=== PATIENT | male | born 1960 | race African-American/Black ===

== ENCOUNTER 2016-03-03 10:42 | Inpatient (IN) | payer OTHER ==
[~2016-03-03] VITALS: Ht 177.8 cm; Wt 118.0 kg
--- NOTE | ~2016-03-03 | HC ---
[facility] [place] [address] CONSULTATION Name: JENNY RIOS Room #: 428-P ADM IN M.R.#: [id number] Admission: 03/03/16 Attend Phys: Pattie Patel MD Discharge: Date of : 62 Report #: [id number] THIS REPORT FOR: //name// CC: Pattie Garcia CHIEF COMPLAINT: Left foot infection. BRIEF HISTORY: The patient is a 55-year-old gentleman with a longstanding history of diabetes who has a left foot infection. He underwent transmetatarsal amputation back in May of 2014 for an infection. Subsequent to this he developed a wound which he believes is related to pressure from the shoe he had been wearing along the lateral aspect of the foot. He then was ambulating on this foot with a cane and did eventually get a scooter to offload the foot in September but has had a chronic wound that he has been undergoing treatment for with Dr. Snow since that time. In his estimation, the wound had been stable until the latter part of this week when he developed blistering and increased drainage and foul smelling drainage. He was admitted for definitive treatment. PAST MEDICAL HISTORY: Significant for end-stage renal disease, insulin dependent diabetes, neuropathy both lower extremities, sleep apnea, hypertension, hypercholesterolemia, GERD, coronary artery disease. He has had bypass surgery. Has peripheral vascular disease. MEDICATIONS ON ADMISSION: Include Lipitor, insulin, Renvela, Zoloft, Lasix, Colace, Protonix, Neurontin, Mirapex, Nephro-Harshad, Ativan, Ambien, Lofibra, Coreg, Levemir, Percocet, Zofran, Levaquin, Plavix, Cozaar, Nephrocaps. ALLERGIES: XANAX causes heart racing. PHYSICAL EXAMINATION: Examination of the left foot: He does indeed have foul smelling wound, lateral foot. He has a granulating wound on the plantar surface of the foot with packing in position with no significant drainage. Laterally on the foot he has what appears to be blister with again a foul smelling drainage. No obvious fluctuance, although he does have diffuse swelling, unable to palpate the pedal pulse. He did have an MRI scan done of this left foot which is available for review. It does demonstrate fluid and gas in the soft tissues in the lateral aspect of the foot which tracks down more plantarward and more proximally. No obvious osteomyelitis noted. PERTINENT LABORATORY DATA: His white blood count is elevated at 19.9. He is anemic at 7.8 hemoglobin. His creatinine is 10.7. Sedimentation rate is 118. C-reactive protein 14.8. He does have positive blood cultures for strep species. [address] [address] CONSULTATION Name: GABRIELJENNY Room #: 428-P ADM IN M.R.#: [id number] Admission: 03/03/16 Attend Phys: Pattie Patel MD Discharge: Date of : 62 Report #: [id number] IMPRESSION: Left foot soft tissue infection with underlying diabetes with bacteremia. PLAN: The patient is to undergo dialysis today. We discussed at length our options to treatment. Given that he does not have osteomyelitis, I do not think it is imperative. He had the below-knee amputation although this would be a reasonable alternative due to this longstanding wound. He is not prepared to undergo amputation at this time. For that reason I have recommended we do an aggressive irrigation and debridement and continue wound care with Dr. Snow. He has had an arterial ultrasound ordered and if he has an adequate inflow, we may need to have him seen by vascular surgery as well. We discussed the surgery in detail as well as the benefits, risks and outcomes. <ELECTRONICALLY SIGNED> By: Sean Chowdhury MD 03/07/16 1015 0914 0050 Sean Chowdhury MD /nt
--- NOTE | ~2016-03-03 | S ---
[facility] [place] [address] SURGICAL PATH RPT PROCEDURE Name: ASHISH ALDRIDGE Room #: 428-P ADM IN M.R.#: [id number] Admission: 03/03/16 Date of : 62 Discharge: Report #: [id number] Path Case #: [id number] PATHOLOGY REPORT COLLECTION DATE: 03/07/2016 RECEIVED DATE: 03/07/2016 SUBMITTING PHYS: Dr. Sean Chowdhury OTHER PHYS: Dr. Filipe Patel SPECIMEN(S) RECEIVED: A.Left below knee amputation * * * * * * * * * * * * FINAL DIAGNOSIS: Let, left, below knee amputation: - Ulceration, necrosis along with marked acute inflammation associated with abscess formation extending into deep subcutaneous tissue. - Acute inflammation extending into underlying bone with bone destruction. - Absence of digits, status post prior transmetatarsal amputation. - Anterior and posterior tibial vessels with moderate calcific atherosclerosis. - Skin margin viable and unremarkable. - Bone margin grossly unremarkable. (IUV:all; d/t: 03/09/2016) PATHOLOGIST: Betty Dior M.D. REPORT ELECTRONICALLY SIGNED BY: Betty Dior M.D. DATE/TIME: 03/09/2016 15:34 * * * * * * * * * * * * GROSS PATHOLOGY: The specimen is received fresh in a red biohazard bag and labeled "Ashish Aldridge and left below knee amputation." Received is a left lower extremity specimen amputated through the tibia and fibula with a smooth resection margin. The specimen has previously undergone a transmetatarsal amputation, therefore all 5 digits are absent. In the digits place is a blunt end. The specimen measures 19.5 cm from heel to blunt end (where digits would be), 25.0 cm from heel to soft tissue resection margin, 38.5 cm from heel to tibial bone resection margin, and 40.5 cm from heel to fibular bone resection margin. The skin, soft tissue, and bone resection margins are grossly viable and unremarkable. The skin is dark brown and wrinkled. The foot displays two kessler-brown to bright red and necrotic-appearing ulcers, [address] [address] SURGICAL PATH RPT PROCEDURE Name: ASHISH ALDRIDGE Room #: 428-P ADM IN M.R.#: [id number] Admission: 03/03/16 Date of : 62 Discharge: Report #: [id number] Path Case #: [id number] which grossly extend to and involve the underlying bone. The ulcers are arbitrarily designated as "ulcer 1" and "ulcer 2." Ulcer 1 measures 8.7 x 5.3 cm and is located on the lateral aspect of the foot near the blunt end region. Ulcer 2 measures 3.8 x 3.0 cm and is located on the plantar aspect of the foot. Sectioning of the anterior and posterior tibial vasculature reveals patent and slightly calcified lumens. Emergency Vehicle Driver sections are submitted as follows: A1 longitudinal section of skin and soft tissue margin (inked) A2 ulcer 1 A3 ulcer 2 A4 bone underlying ulcer 1 and 2, following decalcification A5 anterior tibial vasculature, following decalcification A6 posterior tibial vasculature, following decalcification (TTL; 03/08/2016) CLINICAL HISTORY: Left foot infection INITIAL CPT CODE(S): A; 18731, 10404 Professional services performed by [facility] at [facility] [address], [place] [address] Technical services performed by [facility] at [address] [place] [address], [address], [place] [address]. [facility] [address] [place] [address] PHONE: [phone] DIRECTOR: Kirk Edge M.D. * * * END OF REPORT * * *
--- NOTE | ~2016-03-03 | HC ---
[facility] [place] [address] CONSULTATION Name: JENNY RIOS Room #: 428-P ADM IN M.R.#: [id number] Admission: 03/03/16 Attend Phys: Pattie Patel MD Discharge: Date of : 62 Report #: [id number] THIS REPORT FOR: //name// CC: Pattie Garcia REASON FOR CONSULTATION: I was asked to evaluate concerning left diabetic foot infection. HISTORY OF PRESENT ILLNESS: The patient was a 55-year-old with underlying diabetes, end-stage renal disease, peripheral vascular disease and peripheral neuropathy. He has had a previous transmetatarsal amputation, left foot. He has subsequently developed ulceration and soft tissue infection. He noticed 3 days ago onset of fever, chills, nausea, some diarrhea. Wound was draining from his foot. Placed on Levaquin, but has not improved and now presents through the emergency room for further evaluation. He has had hypoglycemic episodes. ALLERGIES: ALPRAZOLAM. MEDICATIONS: As noted on his MAR including Levaquin which was changed to vancomycin and Zosyn today. PAST MEDICAL HISTORY, FAMILY HISTORY, SOCIAL HISTORY: Unchanged from his previous consultation and that of his H and P tonight. REVIEW OF SYSTEMS: No cough or sputum production. He has had intermittent left sided chest discomfort. Had some vomiting today. Loose stools. Dialyzes 3 times a week. PHYSICAL EXAMINATION: VITAL SIGNS: Currently, afebrile. His maximum temperature is 102.4, hemodynamically stable. GENERAL: He was sleeping in his bed. HEENT: Unremarkable. LUNGS: Clear. Left upper extremity AV fistula okay. HEART: Regular. ABDOMEN: Soft and nontender. EXTREMITIES: Left foot laterally was fluctuant with a sinus tract draining into the wound to the plantar aspect of his forefoot laterally. There was foul odor. He had tenderness up into his calf. Pulses were diminished. MRI scan showed soft tissue abscess sinus tract with some reactive changes over the fifth metatarsal. LABORATORY STUDIES: Sedimentation rate 118, hemoglobin 8.9, white count 22.9 with 2% bands. Sodium 134, potassium 3.7, creatinine 8.9. Chest x-ray, no acute infiltrates. [address] [address] CONSULTATION Name: JENNY RIOS Room #: 428-P ADM IN M.R.#: [id number] Admission: 03/03/16 Attend Phys: Pattie Patel MD Discharge: Date of : 62 Report #: [id number] IMPRESSION: A 55-year-old diabetic with gangrene of his left foot with what appears to be soft tissue involvement, no definite involvement, but with the extensive nature, I am concerned he may end up with a below-knee amputation. We will need to check his arterial flow. Await cultures of blood and wound. We will continue broad antibiotic coverage, pending these studies. We will need surgical evaluation as well. <ELECTRONICALLY SIGNED> By: Arnold Granados MD 03/06/16 4815 2111 55 Arnold Granados MD /nt
--- NOTE | ~2016-03-03 | O ---
[facility] [place] [address] OPERATIVE REPORT Name: JENNY RIOS Room #: 428-P ADM IN M.R.#: [id number] Admission: 03/03/16 Attend Phys: Pattie Patel MD Discharge: Date of : 62 Report #: [id number] THIS REPORT FOR: //name// CC: Pattie Garcia MD DATE OF SERVICE: 03/05/2016 PREOPERATIVE DIAGNOSIS: Left foot abscess with history of transmetatarsal amputation. POSTOPERATIVE DIAGNOSIS: Left foot abscess with history of transmetatarsal amputation. NAME OF THE PROCEDURE: Left foot extensive irrigation and debridement of the lateral wound and plantar wound. SURGEON: Sean Chowdhury MD ANESTHESTIC: General. INDICATIONS FOR THE PROCEDURE: See hospital consultation. DESCRIPTION OF PROCEDURE: After adequate general anesthesia had been obtained, the patient's left lower extremity was prepped and draped in usual meticulous sterile fashion. Limb was gravity exsanguinated and tourniquet inflated to 300 torr. The principal acute infection was the distal lateral abscess formation. He had superficial skin necrosis in this area along with an abscess which tracked along the dorsum of the foot. The nonviable skin and necrotic tissue was debrided with a knife. The unhealthy-appearing subcutaneous tissue was likewise debrided with a knife. We did ____ deep cultures. The wound was irrigated copiously with antibiotic irrigation until no further purulent material was noted. The plantar wound was then addressed. This plantar wound was a chronic wound ____ did suggest tracking proximally to the plantar aspect of the heel. The unhealthy portion of the base of this wound was debrided. There was a tendon which was likely one of his toe flexor tendons which was at the base of the wound and the abscess track seemed to track along this tendon. The tendon was pulled distally and then amputated. I extended the incision proximally to allow better access and healthy tissue was debrided sharply. The wound was irrigated copiously with antibiotic irrigation. At this time, gloves were changed and fresh drapes placed under the foot and dilute Betadine soaked. A half-inch [address] [address] OPERATIVE REPORT Name: JENNY RIOS Room #: 428-P ADM IN M.R.#: [id number] Admission: 03/03/16 Attend Phys: Pattie Patel MD Discharge: Date of : 62 Report #: [id number] gauze was then packed into the wound. A sterile compressive dressing was then applied and the tourniquet then deflated. <ELECTRONICALLY SIGNED> By: Sean Chowdhury MD 03/07/16 1015 0953 1112 Sean Chowdhury MD /nt
--- NOTE | ~2016-03-03 | HC ---
[facility] [place] [address] CONSULTATION Name: JENNY RIOS Room #: 428-P [facility] IN M.R.#: [id number] Admission: 03/03/16 Attend Phys: Pattie Patel MD Discharge: Date of : 62 Report #: [id number] THIS REPORT FOR: //name// CC: Pattie Garcia DATE OF SERVICE: 03/03/2016 HISTORY OF PRESENT ILLNESS: This 55-year-old male is a maintenance hemodialysis patient at [facility]. He has had longstanding difficulties with diabetic foot disease. He has undergone previous treatment and transmetatarsal amputation. He presents today with deterioration of his foot status with open wounds and drainage. He describes fever sensations. He dialyzed yesterday at [facility] uneventfully. PAST MEDICAL HISTORY: Remarkable for longstanding diabetes mellitus with multiple complications thereof. He has undergone previous coronary artery bypass surgery as well as multiple peripheral interventions. He has chronic hypertension and poor diabetes management. ALLERGIES: Reported to ALPRAZOLAM. MEDICATIONS: On admission to the hospital include atorvastatin, aspirin, NovoLog sliding scale, Renvela, Zoloft, Lasix, Colace, Protonix, Neurontin, Mirapex, Nephro-Harshad, Ativan, Ambien, Lofibra, carvedilol, Levemir, Percocet, Zofran, Levaquin, Plavix, Cozaar, Nephrocaps. FAMILY HISTORY: Remarkable for diabetes mellitus. PERSONAL AND SOCIAL HISTORY: The patient is . He does not smoke, use alcohol or have any history of substance abuse. REVIEW OF SYSTEMS: Remarkable for fever sensations. He denies nic rigors. He denies shortness of breath, productive cough, hemoptysis, chest pain, palpitations, nausea, vomiting or diarrhea. PHYSICAL EXAMINATION: GENERAL: Reveals a well-developed, chronically ill-appearing male, in no acute distress. VITAL SIGNS: Blood pressure 114/54, temperature 37.1, pulse 85, respirations 16. SKIN: Rather clammy and warm. There is no gross clubbing, cyanosis, edema or adenopathy. There is a dressing in place on the foot, which was not removed as the foot had just been examined by the ER physician. HEENT: The head is normocephalic and atraumatic. The sclerae are white. Conjunctivae are not injected. Pharynx is benign. [address] [address] CONSULTATION Name: JENNY RIOS Room #: 428-P [facility] IN .R.#: [id number] Admission: 03/03/16 Attend Phys: Pattie Patel MD Discharge: Date of : 62 Report #: [id number] NECK: Supple. PULMONARY: Lung pinon are grossly clear to percussion and auscultation. CARDIAC: Reveals a regular rate and rhythm without rub. ABDOMEN: Soft and nontender, without palpable mass or organomegaly. NEUROLOGIC: Reveals this patient to be alert and cooperative with a nonfocal examination. Laboratory studies available at the time of consultation include blood pressure 186/85, temperature 99.6, pulse 106, respirations 20. Laboratory studies available at the time of consultation include sodium 134, potassium 3.7, chloride 92, CO2 28, BUN 41, creatinine 8.9, glucose 293, calcium 9.1. INR 1.3. White blood cell count 22,900, hemoglobin 8.9, hematocrit 27.4, platelet count 329,000. ASSESSMENT: 1. End-stage renal disease, on maintenance hemodialysis. He is due for dialysis as usual schedule tomorrow. There are no indications for undertaking emergent dialysis at this time. 2. Active diabetic foot infection with leukocytosis and fever sensation though his temperature is normal at this time. There is a distant possibility that he could have systemic bacteremia related to this infection. Unfortunately, he has been fighting this infection for quite some time and the wound is deteriorating. We may need to get further consideration to below the knee amputation during the course of this hospitalization and evaluation. 3. Coronary artery disease, status post coronary artery bypass surgery. 4. Diabetes mellitus, poorly controlled. 5. Hypertension. PLAN: We will continue to follow the patient closely with regard to medications and fluid administration. He will receive his regular dialysis treatment tomorrow as per schedule. Please see orders. <ELECTRONICALLY SIGNED> By: Filipe Garcia MD 03/06/16 0703 0807 214 Filipe Garcia MD /nt
--- NOTE | ~2016-03-03 | HC ---
[facility] [place] [address] CONSULTATION Name: JENNY RIOSNE Room #: 428-P [facility] IN M.R.#: [id number] Admission: 03/03/16 Attend Phys: Sean Chowdhury MD Discharge: 03/12/16 Date of : 62 Report #: [id number] THIS REPORT FOR: //name// CC: Sean Garcia DATE OF SERVICE: 03/08/2016 HISTORY OF PRESENT ILLNESS: The patient is a 55-year-old male with history of diabetes mellitus; end-stage renal disease, on hemodialysis; prior left foot infection with strep septicemia. He has now undergone a left below knee amputation on 03/17/2016. We are seeing him in rehabilitation medicine consultation. PAST MEDICAL HISTORY: End-stage renal disease on hemodialysis, insulin-dependent diabetes mellitus, hypertension, elevated cholesterol, neuropathy, obstructive sleep apnea on CPAP, GERD, status post coronary artery bypass grafting x 4 in 2009, history of right fem-pop bypass, peripheral vascular disease with bilateral stenting. MEDICATIONS: Please see the full medication listing. SOCIAL HISTORY: Lives in a house with his , premorbid knee scooter user or cane versus walker. House has a ramp to get in. The patient was driving himself back and forth to dialysis. is noted to be retired. Involved daughter is present. REVIEW OF SYSTEMS: Did not offer any current complaints of chest pain, shortness of breath or abdominal discomfort. He notes that he has had some chronic problems involving his left shoulder dating back 1-2 years. Decreased ability to fully abduct the arm, forward flex the arm. He takes some Aleve, which helps. Notes he does not want any further evaluation at this time and that he is able to utilize the left upper extremity functionally. PHYSICAL EXAMINATION: GENERAL: A 55-year-old -[place] male in no obvious distress. VITAL SIGNS: Last recorded temperature 97, pulse 78, respirations 18, blood pressure 119/72. The patient is alert, pleasant, oriented. HEENT: Appeared to be benign. Cranial nerves are grossly intact. Facies are symmetric. EXTREMITIES: He has functional range of motion of the right upper extremity without focal weakness. Left upper extremity, he can abduct to about 90 degrees, forward flexion to about 100 degrees. Appears to have reasonable strength including with the left arm adducted and testing external rotation. Appears to have reasonable supervisor dry cell assembly of both hands and coordination and normal tone. In his lower extremities, he does have decreased sensation; right lower [facility] [address] [place] [address] CONSULTATION Name: JENNY RIOS Room #: 428-P [facility] IN [facility].#: [id number] Admission: 03/03/16 Attend Phys: Sean Chowdhury MD Discharge: 03/12/16 Date of : 62 Report #: [id number] extremity in a stocking distribution with some decreased proprioception right large toe. Strength of that right lower extremity is a grade 4- to 4/5. Left lower extremity, he has the below knee amputation, which is dressed. Proximally, he is at least a grade 4-. He does have some discomfort with testing as expected. ASSESSMENT: A 55-year-old -[place] male with the following problem list: 1. Left below-knee amputation 03/07/2016. 2. Streptococcal septicemia. 3. Insulin-dependent diabetes mellitus. 4. End-stage renal disease on hemodialysis. 5. Hypertension. 6. Hyperlipidemia. 7. Obstructive sleep apnea. 8. Peripheral neuropathy. 9. Prior history of coronary artery bypass grafting. 10. History of peripheral vascular disease with bilateral stents. PLAN: Therapy evaluations are underway. He certainly may warrant a short acute in-hospital inpatient rehabilitation stay to maximize his functional independence with basic transfers, mobility issues and ADLs prior to returning back to the home setting. He has multiple medical comorbidities with multiple wellness consultant physicians that are following. We will be glad to follow along with you regarding his rehab therapy needs. <ELECTRONICALLY SIGNED> By: José Miguel Jordan MD 03/28/16 1617 1203 1221 José Miguel Jordan MD /nt
--- NOTE | ~2016-03-03 | O ---
[facility] [address] OPERATIVE REPORT Name: JENNY RIOS Room #: 428-P [facility] IN M.R.#: [id number] Admission: 03/03/16 Attend Phys: Sean Chowdhury MD Discharge: 03/12/16 Date of : 62 Report #: [id number] THIS REPORT FOR: //name// CC: Sean Gracia PREOPERATIVE DIAGNOSIS: Left foot severe chronic wound infection. POSTOPERATIVE DIAGNOSIS: Left foot severe chronic wound infection. PROCEDURE: Left below knee amputation. SURGEON: Sean Chowdhury MD. AIR CARGO GROUND OPERATIONS SUPERVISOR: Tacos Al, nurse practitioner. INDICATIONS FOR AIR CARGO GROUND OPERATIONS SUPERVISOR: During the course of operation, extensive manipulation, retraction and limb positioning was required. This was afforded to me by my blood donor unit assistant. ANESTHETIC: General. INDICATIONS: See hospital history consultation. To summarize, I did have a very long discussion with the patient regarding his situation. He has had a chronic nonhealing wound and he has a very aggressive group E strep infection currently. I think it is unlikely that this current wound will go onto heal and him have a functional foot. I recommended below knee amputation with him and after careful consideration, the options and reviewing and benefits, risks and outcomes and he would like to proceed. DESCRIPTION OF PROCEDURE: After adequate general anesthesia had been obtained, the patient's left lower extremity was prepped and draped in the usual meticulous sterile fashion. The tibia was marked approximately 12 cm distal to the joint line. We then made a transverse incision and a long posterior flap incision. The saphenous vein and nerve identified and ligated and the nerve transected. Fascia was divided. The anterior compartment was divided first. The musculature was all divided with cautery and the neurovascular bundle was identified. The neurovascular bundle was stick tied and then suture ligatured and then, the peroneal nerve was retracted distally, transected and allowed to retract proximally. The lateral compartment muscles were then divided as well. The superficial peroneal nerve was identified and likewise retracted distally and allowed to retract proximally. At this time, the tibia was transected and the fibula was transected proximal to the level of the tibial resection. The knee was flexed. The periosteum overlying the posterior tibia and fibula were elevated incorporating all the posterior compartment muscles with a flap. The peroneal vessels were identified, suture ligatured and then tied off with a ligature and then, the tibial nerve and posterior tibial vessels were [address] [address] OPERATIVE REPORT Name: JENNY RIOS Room #: 428-P DIS IN M.R.#: [id number] Admission: 03/03/16 Attend Phys: Sean Chowdhury MD Discharge: 03/12/16 Date of : 62 Report #: [id number] identified. The vessels were stick tied and suture ligatured and the nerve was retracted distally, transected and allowed to retract proximally. A beveled cut was made to the posterior compartment muscles. To allow for appropriate wound closure, I want a debulking the majority of the soleus. The wound was irrigated copiously. I let the tourniquet down and bleeders were cauterized. The fascia posteriorly of the gastroc muscle was pulled anteriorly and tied to the tibial periosteum anteriorly. At this point, the tibia was beveled anteriorly and all sharp bony prominences were smoothed with a rasp. The wound was irrigated copiously once again. The fascia was brought to the anterior aspect of the tibia and tied to the periosteum with #1 Vicryl suture. The fascia was all then meticulously closed with combination of interrupted [id number] #1 Vicryl as well as running #1 Vicryl. The subQ was closed with 3-0 Monocryl and the skin was closed with tico. I did place a drain deep to the fascial closure. A sterile compressive dressing was then applied. <ELECTRONICALLY SIGNED> By: Sean Chowdhury MD 03/21/16 1420 1542 1820 Sean Chowdhury MD /nt
--- NOTE | ~2016-03-03 | EKG ---
[address] [place] [address] ELECTROCARDIOGRAM REPORT Name: ANNA MARIE RIOSVAHID HERNANDEZ Room #: 428-P ADM IN M.R.#: [id number] Admission: 03/03/16 Attend Phys: Pattie Patel MD Discharge: Date of : 62 Report #: [id number] THIS REPORT FOR: //name// [facility] Test Date: 2016-03-03 Test Time: 21:25:05 Pat Name: JENNY RIOS Department: Room: 428 P Gender: M Mc Kay Machine Operator: Kathryn FRANCIS : 1960 Requested By: Arnold Granados Order Number: [id number] MD: Alec Granger Measurements Intervals [place] Rate: 100 P: 63 OK: 175 QRS: 36 QRSD: 91 T: 101 QT: 300 QTc: 387 Interpretive Statements Sinus tachycardia Frequent premature ventricular complexes Nonspecific ST segment abnormality no previous ECGs available for comparison Electronically Signed On 03-07-2016 8:12:52 CLINICAL LABORATORY MANAGER by Alec Granger [email or web address] <ELECTRONICALLY SIGNED> By: Alec Granger MD, [facility] 03/07/16 0812 2125 24 Alec Granger MD, FACC /EPI
[~2016-03-03 10:42] MED LIST: ACETAMINOPHEN650 M5 PO; AMBIEN 5 MG TABL5 M1 PO; AMOXICILLIN 50500 MG PO; APAP500 PO; ASA81BEC PO; ATIVAN0.5 MG PO; ATORVASTATIN CA40 MG PO; AUGMENTIN 500-1 EACH PO; AUGMENTIN 875875 MG PO; AZOR 10-40 MG1 EACH PO; BENICAR20 MG PO; CARVEDILOL25 MG PO; CATAPRES-TTS 10.1 M1 PO; CATAPRES0.2 MG PO; CHLORHEXADINE120 M1 TOP; CLONIDINE HCL0.2 M2 PO; CLONIDINE HCL0.3 M2 PO; CLONIDINE0.1 PO; COLACE100 MG PO; COMBIVENT RESPIM4 GM INH; COREG25 MG PO; COUMADIN 5 MG TA5 M1 PO; COZAAR 25 MG TA25 M2 PO; COZAAR 50 MG TA50 M1 PO; CRESTOR20 MG PO; DEEP SEA NASAL44 M1 NASAL; DEX4 GLUCOSE1 EACH PO; DEXTROSE 5025 GM/SYR; DIALYVITE TABL1 EACH PO; DILTIAZEM 24HR240 M1 PO; DOXYCYCLINE 10100 MG PO; EXFORGE; EXFORGE HCT PO; EXFORGE PO; GABAPENTIN 100100 MG PO; GLUCAGEN1 MG; GLUCOSE GEL38 GM PO; HYDROCODON-ACE1 EAC7 PO; HYDROCODONE-AP1 EAC6 PO; LANTUS SC; LASIX 40 MG TAB40 MG PO; LASIX 80 MG TAB80 MG PO; LEVAQUIN 500 M500 M2 PO; LEVEMIR SUBQ; LIPITOR40 MG PO; LISINOPRIL40 MG PO; LOFIBRA160 MG PO; LOPERAMIDE 2 MG2 M1 PO; MIRAPEX 0.250.25 M1 PO; MIRAPEX0.25 MG PO; NEPHRO-VITE RX1 TA1 PO; NEPHROCAPS SOFT1 CAP PO; NORCO 5-325 TA1 EACH PO; NORVASC10 MG PO; NOVOLIN 70100 UNIT/5 SQ; NOVOLOG MI100 UNIT/2 SUBQ; NOVOLOG100 UNIT/1 SUBQ; PACERONE 200 M200 M1 PO; PERCOCET PO; PIPERACIL-TAZ2.25 G1 IV; PLAVIX 75 MG TA75 M1 PO; PRILOSEC 20 MG20 MG PO; PROTONIX40 M1 PO; RENVELA800 MG PO; ROCEPHIN 1 GM VL1 G1 IV; SENOKOT-S1 TA1 PO; TUMS PO; TYLENOL325 MG PO; VANCO1GM IV; VANCOMYCIN1.25 GM/25 IV; VANCOMYCIN500 MG/VIA IV; ZESTRIL20 MG PO; ZOCOR 20 MG TAB20 M1 PO; ZOCOR20 MG; ZOCOR40 MG PO; ZOFRAN ODT4 MG PO; ZOLOFT50 MG PO; [UNRECOGNIZED DRUG - OTHER] PO
[2016-03-03 10:43] VITALS: BP 186/85
[2016-03-03] MEDS ORDERED: PERCOCET 10-321 EACH PO (11:07)
[2016-03-03] MEDS ORDERED: ONDANSETRON HCL4 M2 PO (11:08)
[2016-03-03] MEDS ORDERED: LEVAQUIN 250 M250 MG PO (11:09)
[2016-03-03 12:05] LABS: HEMATOCRIT 27.4 % (42.0-52.0); HEMOGLOBIN 8.9 gm/dL (14.0-18.0); MCH 27.9 pg (26.0-34.0); MCHC 32.3 % (28.0-37.0); MCV 86.3 fL (80.0-100.0); PLATELET COUNT 329 thou/uL (150-400); RBC 3.18 mil/uL (4.50-6.00); RDW 14.9 % (10.5-14.5); WBC 22.9 thou/uL (4.0-11.0)
[2016-03-03 12:07] LABS: MANUAL DIFF YES
[2016-03-03 12:18] LABS: INR 1.3; PROTIME 13.4 Seconds (9.3-11.4)
[2016-03-03 12:20] LABS: CALCIUM 9.1 mg/dL (8.5-10.1); CREATININE 8.9 mg/dL (0.6-1.3); POTASSIUM 3.7 mmol/L (3.5-5.1)
[2016-03-03 12:32] LABS: ABSOLUTE NEUTROPHILS 19.9 thou/uL (1.4-8.2); TOTAL CELL COUNT 100
[2016-03-03 13:57] VITALS: BP 162/67
[2016-03-03 14:05] VITALS: BP 165/75
[2016-03-03 16:05] VITALS: BP 110/64
[2016-03-03 20:00] VITALS: BP 124/75
[2016-03-03] MEDS ORDERED: REGLAN 10 MG TA10 MG PO (22:50)
[2016-03-04 04:00] VITALS: BP 117/47
[2016-03-04 04:32] LABS: ABSOLUTE NEUTROPHILS 16.5 thou/uL (1.4-8.2); BASOPHILS 1.1 % (0.0-2.0); EOSINOPHILS 1.2 % (0.0-3.0); HEMATOCRIT 24.1 % (42.0-52.0); HEMOGLOBIN 7.8 gm/dL (14.0-18.0); LYMPHOCYTES 4.3 % (24.0-44.0); MANUAL DIFF NO; MCH 28.1 pg (26.0-34.0); MCHC 32.6 % (28.0-37.0); MCV 86.2 fL (80.0-100.0); MONOCYTES 10.3 % (1.0-8.0); PLATELET COUNT 297 thou/uL (150-400); POLYS 83.1 % (36.0-66.0); RBC 2.79 mil/uL (4.50-6.00); RDW 14.7 % (10.5-14.5); WBC 19.9 thou/uL (4.0-11.0)
[2016-03-04 04:50] LABS: ALBUMIN 2.1 g/dL (3.4-5.0); CALCIUM 8.7 mg/dL (8.5-10.1); CREATININE 10.7 mg/dL (0.6-1.3); PHOSPHORUS 5.3 mg/dL (2.5-4.9); POTASSIUM 3.9 mmol/L (3.5-5.1)
[2016-03-04 08:56] VITALS: BP 114/54
[2016-03-04 18:23] VITALS: BP 147/76
[2016-03-04 22:50] VITALS: BP 133/63
[2016-03-05 04:00] VITALS: BP 105/55
[2016-03-05 04:38] LABS: HEMATOCRIT 24.5 % (42.0-52.0); HEMOGLOBIN 7.9 gm/dL (14.0-18.0); MCH 27.6 pg (26.0-34.0); MCHC 32.4 % (28.0-37.0); MCV 85.3 fL (80.0-100.0); PLATELET COUNT 342 thou/uL (150-400); RBC 2.87 mil/uL (4.50-6.00); RDW 15.4 % (10.5-14.5); WBC 19.6 thou/uL (4.0-11.0)
[2016-03-05 05:04] LABS: MANUAL DIFF YES
[2016-03-05 05:23] LABS: ALBUMIN 2.1 g/dL (3.4-5.0); CALCIUM 8.8 mg/dL (8.5-10.1); PHOSPHORUS 3.7 mg/dL (2.5-4.9); POTASSIUM 3.4 mmol/L (3.5-5.1)
[2016-03-05 05:34] LABS: CREATININE 7.7 mg/dL (0.6-1.3)
[2016-03-05 06:36] LABS: ABSOLUTE NEUTROPHILS 15.9 thou/uL (1.4-8.2); PLATELET ESTIMATE NORMAL; TOTAL CELL COUNT 100
[2016-03-05 08:04] VITALS: BP 120/64
[2016-03-05 11:26] VITALS: BP 122/72
[2016-03-05 16:58] VITALS: BP 105/58
[2016-03-05 20:00] VITALS: BP 105/59
[2016-03-06 02:39] LABS: HEMATOCRIT 23.7 % (42.0-52.0); MCH 27.5 pg (26.0-34.0); MCHC 31.3 % (28.0-37.0); MCV 87.8 fL (80.0-100.0); PLATELET COUNT 349 thou/uL (150-400); RBC 2.69 mil/uL (4.50-6.00); RDW 15.2 % (10.5-14.5); WBC 16.9 thou/uL (4.0-11.0)
[2016-03-06 02:44] LABS: HEMOGLOBIN 7.4 gm/dL (14.0-18.0); MANUAL DIFF YES
[2016-03-06 02:48] LABS: CALCIUM 7.9 mg/dL (8.5-10.1); POTASSIUM 4.2 mmol/L (3.5-5.1)
[2016-03-06 03:10] LABS: CREATININE 9.6 mg/dL (0.6-1.3)
[2016-03-06 03:45] LABS: ABSOLUTE NEUTROPHILS 15.2 thou/uL (1.4-8.2); METAMYELOCYTES 1 %; TOTAL CELL COUNT 100
[2016-03-06 03:46] LABS: ANISOCYTOSIS 1+; HYPOCHROMASIA 1+
[2016-03-06 04:00] VITALS: BP 103/47
[2016-03-06 07:52] VITALS: BP 119/65
[2016-03-06 15:28] VITALS: BP 109/59
[2016-03-06 19:35] VITALS: BP 127/68
[2016-03-07] VITALS (10 sets, daily range): BP systolic 120–175; BP diastolic 74–86
[2016-03-07 05:26] LABS: RDW 15.1 % (10.5-14.5)
[2016-03-07 05:30] LABS: MCH 27.9 pg (26.0-34.0); MCHC 32.8 % (28.0-37.0); MCV 85.2 fL (80.0-100.0); PLATELET COUNT 379 thou/uL (150-400); RBC 2.46 mil/uL (4.50-6.00)
[2016-03-07 05:40] LABS: HEMOGLOBIN 6.9 gm/dL (14.0-18.0); MANUAL DIFF YES
[2016-03-07 06:02] LABS: ALBUMIN 1.9 g/dL (3.4-5.0); CALCIUM 7.8 mg/dL (8.5-10.1); PHOSPHORUS 5.9 mg/dL (2.5-4.9); POTASSIUM 4.6 mmol/L (3.5-5.1)
[2016-03-07 06:12] LABS: CREATININE 12.2 mg/dL (0.6-1.3)
[2016-03-07 07:34] LABS: ABSOLUTE NEUTROPHILS 12.6 thou/uL (1.4-8.2); ANISOCYTOSIS 1+; METAMYELOCYTES 4 %; MICROCYTES 2+; MYELOCYTES 1 %; TOTAL CELL COUNT 100; TOXIC GRANULATION 2+
[2016-03-07 07:35] LABS: POLYCHROMASIA SLIGHT; SCHISTOCYTES FEW; TARGET CELLS FEW
[2016-03-07 15:18] LABS: POC BE 0 mmol/L (-2.0 to +3.0); POC CA IONIZED 4.1 mg/dL (4.5-5.3); POC FiO2 1 %; POC GLUCOSE 173 mg/dL (70-99); POC HCO3 26.3 mmol/L (22.0-26.0); POC HEMOGLOBIN 9.2 gm/dL (14.0-18.0); POC POTASSIUM 4.3 mmol/L (3.5-5.1); POC SODIUM 137 mmol/L (136-145); POC pCO2 51.7 mmHg (35.0-45.0); POC pH 7.314 (7.360-7.450)
[2016-03-08 02:28] VITALS: BP 120/62
[2016-03-08 04:30] VITALS: BP 132/73
[2016-03-08 05:26] LABS: HEMATOCRIT 25.3 % (42.0-52.0); HEMOGLOBIN 8.1 gm/dL (14.0-18.0); MCH 27.7 pg (26.0-34.0); MCHC 32.1 % (28.0-37.0); MCV 86.3 fL (80.0-100.0); PLATELET COUNT 428 thou/uL (150-400); RBC 2.93 mil/uL (4.50-6.00); RDW 15.5 % (10.5-14.5)
[2016-03-08 05:36] LABS: MANUAL DIFF YES
[2016-03-08 05:47] LABS: ALBUMIN 2.1 g/dL (3.4-5.0); CALCIUM 7.9 mg/dL (8.5-10.1); PHOSPHORUS 8.5 mg/dL (2.5-4.9); POTASSIUM 5.1 mmol/L (3.5-5.1)
[2016-03-08 06:23] LABS: ABSOLUTE NEUTROPHILS 11.1 thou/uL (1.4-8.2); METAMYELOCYTES 2 %; MYELOCYTES 1 %; TOTAL CELL COUNT 100
[2016-03-08 07:45] VITALS: BP 119/72
[2016-03-08 16:26] VITALS: BP 100/55
[2016-03-08 19:55] VITALS: BP 102/60
[2016-03-09 04:08] VITALS: BP 139/79
[2016-03-09 05:53] LABS: HEMATOCRIT 22.7 % (42.0-52.0); RDW 14.8 % (10.5-14.5); WBC 15.4 thou/uL (4.0-11.0)
[2016-03-09 05:54] LABS: MCHC 32.5 % (28.0-37.0); MCV 86.1 fL (80.0-100.0); RBC 2.64 mil/uL (4.50-6.00)
[2016-03-09 06:01] LABS: POTASSIUM 4.8 mmol/L (3.5-5.1)
[2016-03-09 06:02] LABS: CREATININE 11.2 mg/dL (0.6-1.3)
[2016-03-09 06:04] LABS: HEMOGLOBIN 7.4 gm/dL (14.0-18.0)
[2016-03-09 07:22] LABS: HEMATOCRIT 22.1 % (42.0-52.0)
[2016-03-09 07:28] LABS: HEMOGLOBIN 7.3 gm/dL (14.0-18.0)
[2016-03-09 07:43] VITALS: BP 142/71
[2016-03-09 16:27] VITALS: BP 119/65
[2016-03-10 04:00] VITALS: BP 142/57
[2016-03-10 06:29] LABS: HEMATOCRIT 21.7 % (42.0-52.0); MCH 27.7 pg (26.0-34.0); MCV 86.8 fL (80.0-100.0); RBC 2.5 mil/uL (4.50-6.00); RDW 14.6 % (10.5-14.5); WBC 17.1 thou/uL (4.0-11.0)
[2016-03-10 06:37] LABS: HEMOGLOBIN 6.9 gm/dL (14.0-18.0)
[2016-03-10 07:02] LABS: CALCIUM 7.8 mg/dL (8.5-10.1); PHOSPHORUS 6.2 mg/dL (2.5-4.9)
[2016-03-10 07:04] LABS: CREATININE 7.9 mg/dL (0.6-1.3)
[2016-03-10 07:53] VITALS: BP 132/70
[2016-03-10 10:07] LABS: % SATURATION 12 % (15-55); IRON 24 ug/dL (38-169); TIBC 196 ug/dL (250-450); UIBC 172 ug/dL (111-343)
[2016-03-10 16:11] VITALS: BP 120/75
[2016-03-10 20:00] VITALS: BP 148/70
[2016-03-11 06:11] VITALS: BP 127/92
[2016-03-11 07:49] LABS: HEMATOCRIT 20.8 % (42.0-52.0); MCH 27.2 pg (26.0-34.0); MCHC 31.6 % (28.0-37.0); MCV 86.2 fL (80.0-100.0); RBC 2.41 mil/uL (4.50-6.00); RDW 14.7 % (10.5-14.5); WBC 15.1 thou/uL (4.0-11.0)
[2016-03-11 07:52] LABS: HEMOGLOBIN 6.6 gm/dL (14.0-18.0)
[2016-03-11 07:56] LABS: CALCIUM 8.1 mg/dL (8.5-10.1); POTASSIUM 4.3 mmol/L (3.5-5.1)
[2016-03-11 08:06] LABS: CREATININE 10.7 mg/dL (0.6-1.3)
[2016-03-11 08:50] VITALS: BP 109/84
[2016-03-11 10:06] VITALS: BP 128/76; BP 140/84
[2016-03-11 15:52] VITALS: BP 140/64; BP 163/86; BP 178/105
[2016-03-11 17:04] VITALS: BP 136/85
[2016-03-11 20:00] VITALS: BP 121/59
[2016-03-12 04:00] VITALS: BP 146/59
[2016-03-12 05:45] LABS: HEMATOCRIT 25.1 % (42.0-52.0); HEMOGLOBIN 8.2 gm/dL (14.0-18.0); MCH 28.5 pg (26.0-34.0); MCHC 32.8 % (28.0-37.0); MCV 86.9 fL (80.0-100.0); RBC 2.89 mil/uL (4.50-6.00); RDW 14.7 % (10.5-14.5); WBC 13.5 thou/uL (4.0-11.0)
[2016-03-12 06:03] LABS: ALBUMIN 1.9 g/dL (3.4-5.0); CALCIUM 8.1 mg/dL (8.5-10.1); CREATININE 8.8 mg/dL (0.6-1.3); PHOSPHORUS 5.9 mg/dL (2.5-4.9)
[2016-03-12 08:22] VITALS: BP 125/77
[2016-03-12] MEDS ORDERED: LEVEMIR SUBQ (10:15)
[2016-03-12] MEDS ORDERED: HUMALOG100 UNIT/1 SUBQ (10:15)
[2016-05-05] MEDS ORDERED: PROTONIX40 M1 PO (13:59)
[2016-05-06] MEDS ORDERED: ATIVAN0.5 MG PO (11:11)
[2016-05-06] MEDS ORDERED: ESTRADIOL 1 MG T1 M1 PO (11:11)
[2016-05-06] MEDS ORDERED: PERCOCET 10-321 EACH PO (11:11)
[2016-05-06] MEDS ORDERED: NORVASC10 MG PO (11:11)
== END 2016-03-12 11:50 | DRG 853 ==
LOC: ER 10:42 → EROBS 13:12 → 4E 13:12 → EROBS 13:59 → 4E 13:59
PROVIDERS: Emergency Medicine; Family Medicine; Hospitalist; Internal Medicine Nephrology; Orthopaedic Surgery
PROC: 5A1D60Z (ICD-10-PCS; 2016-03-03)
PROC: 0JDR0ZZ Extraction of Left Foot Subcutaneous Tissue and Fascia, Open Approach (ICD-10-PCS; principal; 2016-03-05)
PROC: 0Y6J0Z1 Detachment at Left Lower Leg, High, Open Approach (ICD-10-PCS; 2016-03-07)
PROC: 30233N1 Transfusion of Nonautologous Red Blood Cells into Peripheral Vein, Percutaneous Approach (ICD-10-PCS; 2016-03-11)
DX: A41.2 Sepsis due to unspecified staphylococcus (principal); N18.6 End stage renal disease; L02.612 Cutaneous abscess of left foot; I13.2 Hypertensive heart and chronic kidney disease with heart failure and with stage 5 chronic kidney disease, or end stage renal disease; E11.52 Type 2 diabetes mellitus with diabetic peripheral angiopathy with gangrene; E11.40 Type 2 diabetes mellitus with diabetic neuropathy, unspecified; K21.9 Gastro-esophageal reflux disease without esophagitis; I25.10 Atherosclerotic heart disease of native coronary artery without angina pectoris; E11.621 Type 2 diabetes mellitus with foot ulcer; G47.33 Obstructive sleep apnea (adult) (pediatric); E78.5 Hyperlipidemia, unspecified; I25.5 Ischemic cardiomyopathy; D63.8 Anemia in other chronic diseases classified elsewhere; E11.22 Type 2 diabetes mellitus with diabetic chronic kidney disease; I50.9 Heart failure, unspecified; E78.00 Pure hypercholesterolemia, unspecified; Z95.5 Presence of coronary angioplasty implant and graft; Z79.82 Long term (current) use of aspirin; Z79.4 Long term (current) use of insulin; Z79.899 Other long term (current) drug therapy; Z95.1 Presence of aortocoronary bypass graft; Z90.49 Acquired absence of other specified parts of digestive tract; Z89.421 Acquired absence of other right toe(s); Z88.8 Allergy status to other drugs, medicaments and biological substances; Z99.2 Dependence on renal dialysis; Z87.891 Personal history of nicotine dependence; Z83.3 Family history of diabetes mellitus; Z82.49 Family history of ischemic heart disease and other diseases of the circulatory system
CPT/HCPCS: 10084; 10183; 10783; 32100; 50010; 50101; 50386; 51412; 53000; 56524; 56525; 56528; 57091; 62110; 62900; 70005

== ENCOUNTER 2016-03-12 11:06 | Inpatient (IN) | payer OTHER ==
[~2016-03-12] VITALS: Ht 177.8 cm; Wt 123.2 kg
--- NOTE | ~2016-03-12 | HC ---
[facility] [place] [address] CONSULTATION Name: JENNY RIOS Room #: 501-A [facility] IN .R.#: [id number] Admission: 03/12/16 Attend Phys: José Miguel Jordan MD Discharge: 03/17/16 Date of : 62 Report #: [id number] THIS REPORT FOR: //name// CC: José Miguel Jordan Filipe Garcia DATE OF SERVICE: 03/17/2016 AGE: 55. ATTENDING PHYSICIAN: José Miguel Jordan M.D. GOLD LAYER: Nando Mills, Ph.D. CLINICAL PRESENTATION: The patient is a 55-year-old male admitted to the rehabilitation unit of [facility] for a comprehensive inpatient rehabilitation program to improve functional mobility and activities of daily living and self-care secondary to impairment from medical complexity and general disability as a result of a left below the knee amputation. His medical history includes end-stage renal disease on hemodialysis, insulin-dependent diabetes mellitus, hypertension, elevated cholesterol, neuropathy, obstructive sleep apnea, GERD, status post coronary artery grafting x 4, history of right fem-pop bypass and peripheral vascular disease with bilateral stenting. A complete description of his medical condition and history can be found in his medical record. Neuropsychological consultation was requested to provide assistance in the assessment of cognitive and emotional status and to provide recommendations and services. Prior to this most recent medical event, he was living with the assistance of his in their home. The patient has 3 children. Two grandchildren are living with them. There has been a great deal of family stress within the last couple of years. They have a daughter. His daughter has been in long-term. Additionally, his health care needs have required increased assistance and supervision to maintain safety. The patient is a high school graduate. 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 TECHNIQUES UTILIZED: Clinical interview, review of medical records, staff consultation and behavioral observation, family interview - . EXAMINATION FINDINGS: The patient was alert and cooperative with the assessment. He was somewhat vague about the specifics of events leading to his hospitalization. However, he maintains an adequate awareness and memory concerning complications that developed in regard to below the knee amputation. He attempted to maintain as much of his leg as possible, but continued difficulty with circulation led to the eventual below the knee recommendation. There is no report of auditory or visual hallucinations. The patient does not [address] [address] CONSULTATION Name: JENNY RIOSNE Room #: 501-A [facility] IN M.R.#: [id number] Admission: 03/12/16 Attend Phys: José Miguel Jordan MD Discharge: 03/17/16 Date of : 62 Report #: [id number] have aphasia. His thoughts are logical and goal oriented. There is no evidence of thought disorder. The patient and his are both frustrated with the need for his discharge as they would like him to remain in the hospital from a more extended time. There is a great deal of family stress associated at the home. The higher level of environmental stress in the home likely contributes to his desire to remain in the hospital rather than return to increasing environmental stress. He describes his symptoms to include anxiety, depression, memory and word finding. His performance on the MMSE 2 brief version was in the mild range of impairment with a raw score of 13 and a T score of 33. He was 3/3 for initial registration, 4/5 for orientation to time and 5/[address]. He was 1/3 for immediate recall of 3 items after a brief time delay and distraction. The patient was correct for serial 7's when multiple choice options. Moderate impairment was suggested by his performance on the MMSE 2 standard version to a raw score 22 of 30. The patient was 1/5 for serial 7's. He presents with a very high level of frustration with auditory processing as well as skills necessary to maintain independent living. He was able to draw a clock and set the hands at a designated time on his second drawing. He initially decreased the planning as suggested. DIAGNOSTIC IMPRESSION: Mild neurocognitive disorder, unspecified, with decreased insight and intermittent irritability. Depressive disorder, unspecified. RECOMMENDATIONS: The patient will benefit from continued use of medication to treat depression. Verbal praise and complements along with him focusing attention on areas of strength rather than limitations and weaknesses will also help his self-confidence. Educational information for the patient and his in regard to behaivoral strategies to improve and his cognitive functioning and mood. He and his may need some assistance with planning and problem solving upon his discharge home. Thank you very much for allowing me to provide the consultation on this patient. <ELECTRONICALLY SIGNED> By: Nando Mills, PhD 03/18/16 1533 1622 2326 Nando Mills, PhD /nt
--- NOTE | ~2016-03-12 | H ---
[facility] [place] [address] HISTORY AND PHYSICAL Name: JENNY RIOS Room #: 501-A [facility] IN .R.#: [id number] Admission: 03/12/16 Attend Phys: José Miguel Jordan MD Discharge: 03/17/16 Date of : 62 Report #: [id number] THIS REPORT FOR: //name// CC: José Miguel Garcia DATE OF SERVICE: 03/13/2016 HISTORY OF PRESENT ILLNESS: The patient is a 55-year-old male with a history of diabetes mellitus; end-stage renal disease, on hemodialysis and prior left foot infection with Strep septicemia. He underwent a left below-knee amputation on 03/17/2016. He was being followed regarding his multiple medical issues. He does have decreased functional mobility and ADLs and has been admitted now for acute in-hospital inpatient rehabilitation. PAST MEDICAL HISTORY: Includes end-stage renal disease, on hemodialysis; insulin-dependent diabetes mellitus; hypertension; elevated cholesterol; neuropathy; obstructive sleep apnea, on CPAP; GERD; status post coronary artery bypass grafting times 4 in 2009; history of right fem-pop bypass and peripheral vascular disease with bilateral stenting. MEDICATIONS: Please see the full medication listing. SOCIAL HISTORY: He lives in a house with his , premorbid knee scooter user or cane versus walker. House has a ramp to get in. The patient was driving himself back and forth to dialysis. is noted to be retired. Involved daughter is present. REVIEW OF SYSTEMS: He did not offer any current complaints of chest pain, shortness of breath or abdominal discomfort. He does have the prior problems with his left shoulder dating back 1-2 years, which was further assessed during my consultation. CODE STATUS. I clarified this as there was some question as to whether he was no code. He did indicate that he does indeed desire to be a full code status. This was thus changed. ALLERGIES: ALPRAZOLAM, causes heart racing. PHYSICAL EXAMINATION: GENERAL: A 55-year-old -Citizen Of [place] male, in obvious distress. He is alert, pleasant and oriented. VITAL SIGNS: Last recorded temperature 97.5, pulse 76, respirations 20 and blood pressure 146/80. HEENT: Appear to be benign. NEUROLOGIC: Cranial nerves grossly intact. Facies [place] [address] HISTORY AND PHYSICAL Name: JENNY RIOS Room #: [address] [place] [address] IN .R.#: [id number] Admission: 03/12/16 Attend Phys: José Miguel Jordan MD Discharge: 03/17/16 Date of : 62 Report #: [id number] overweight. CHEST: Sounded clear to auscultation. CARDIAC EXAMINATION: Regular rate and rhythm. ABDOMEN: Obese. Bowel sounds positive. Nontender. EXTREMITIES: Functional range of motion of the right upper extremity without focal weakness. Left upper extremity abduction to about 90 degrees, forward flexion to about 100. He does have reasonable strength, including with the left arm adductor and testing external rotation. Appears to have reasonable animal hospital clerk of both hands and coordination with normal tone. In his lower extremities, he has decreased sensation. Right lower extremity in a stocking distribution with some decreased proprioception, right large toe. Strength of the right lower extremity is 4- to 4/5. Left lower extremity, he has the below-knee amputation. Proximally, he is at least a grade 4-. I examined the incisional site and he does have tico in place and the incision appears to be healing nicely. Functionally, he has been working on transfers to the knee scooter, which he was utilizing premorbidly. ASSESSMENT: A 55-year-old -Citizen Of [place] male with the following problem list: 1. Left below-knee amputation on 03/07/2016. 2. Streptococcal septicemia. 3. Insulin-dependent diabetes mellitus. 4. End-stage renal disease, on hemodialysis. 5. Hypertension. 6. Hyperlipidemia. 7. Obstructive sleep apnea. 8. Peripheral neuropathy. 9. Prior history of coronary artery bypass grafting. 10. History of peripheral vascular disease with bilateral stents. PLAN: The patient is admitted for acute in-hospital inpatient rehabilitation. From a post-admission physician evaluation perspective, there are no relevant changes since the preadmission screening. Please see of the above review of prior and current medical and functional conditions and comorbidities. Please see the patient's previous and current functional status. As far as risk of complications, he does have multiple medical comorbidities as noted above. Initial plan of care involves the interdisciplinary acute inpatient rehabilitation program with the goal of maximizing his functional independence so he can hopefully return back to his prior living situation. Measurable functional goals would be for him to become modified independent with bed mobility and transfers utilizing the knee scooter. Prognosis is reasonably good and would anticipate a fairly short length of stay. Potential barriers would include his multiple medical comorbidities and decreased functional status. The patient meets diagnostic criteria for an acute in-hospital inpatient rehabilitation stay. He meets medical necessity criteria. He does have [facility] [address] [place] [address] HISTORY AND PHYSICAL Name: JENNY RIOS Room #: 501-A DIS IN M.R.#: [id number] Admission: 03/12/16 Attend Phys: José Miguel Jordan MD Discharge: 03/17/16 Date of : 62 Report #: [id number] appropriate tolerance for therapies and has appropriate discharge goals back to the home setting. <ELECTRONICALLY SIGNED> By: José Miguel Jordan MD 03/28/16 1617 0919 0937 José Miguel Jordan MD /nt
--- NOTE | ~2016-03-12 | PLAN ---
[facility] [place] [address] REHAB UNIT PLAN OF CARE Name: JENNY RIOS Room #: 501-A [facility] IN M.R.#: [id number] Admission: 03/12/16 Attend Phys: José Miguel Jordan MD Discharge: 03/17/16 Date of : 62 Report #: [id number] THIS REPORT FOR: //name// CC: José Miguel Garcia DATE OF SERVICE: 03/14/2016 HISTORY: The patient is seen back today in followup. He is in no distress. Last recorded temperature 97.7, pulse 81, respirations 20 and blood pressure is 124/65. He is in no distress. Blood sugars are being monitored. He did have a low of 39 earlier this morning. Deferring to internal medicine. He continues with dialysis. Transfers are contact guard assistance. He is using the scooter, 75-feet contact guard. Lower body dressing is mod assist, socks and hose min assist. Upper body dressing with supervision. ASSESSMENT: 1. Left below-knee amputation, 03/07/2016. 2. Streptococcal septicemia. 3. Insulin-dependent diabetes mellitus. 4. End-stage renal disease, on hemodialysis. 5. Hypertension. 6. Hyperlipidemia. 7. Obstructive sleep apnea. 8. Peripheral neuropathy. 9. Prior history of coronary artery bypass grafting. 10. History of peripheral vascular disease with bilateral stents. PLAN: The overall plan of care is based on the preadmission screen, post-admission physician evaluation and information garnered from therapy assessments. 1. Estimated length of stay is to be determined further today in the team conference. Would anticipate a fairly short length of stay. 2. Medical prognosis is reasonably good. 3. Anticipated interventions include the interdisciplinary acute inpatient rehabilitation program with PT and OT working with him, rehab nursing assisting regarding medication management, skin care prophylaxis, bowel and bladder issues and nursing education. 4. Anticipated functional outcomes would be for the patient to become modified independent with transfers, mobility, use of the knee scooter and ADLs. 5. Discharge destination will be back to the home setting where he lives with his . They do have a ramp to get in. 6. Expected therapy by discipline includes PT and OT one and one-half hours per [facility] [address] [place] [address] REHAB UNIT PLAN OF CARE Name: JENNY RIOS Room #: 501-A [facility] IN [facility]#: [id number] Admission: 03/12/16 Attend Phys: José Miguel Jordan MD Discharge: 03/17/16 Date of : 62 Report #: [id number] day each, 5 days a week throughout the duration of the acute inpatient rehabilitation stay. <ELECTRONICALLY SIGNED> By: José Miguel Jordan MD 03/28/16 1617 0822 1229 José Miguel Jordan MD /nt
--- NOTE | ~2016-03-12 | D ---
[facility] [address] [place] [address] DISCHARGE SUMMARY Name: GABRIELJENNY MARY Room #: 501-A [facility] IN M.R.#: [id number] Admission: 03/12/16 Attend Phys: José Miguel Jordan MD Discharge: 03/17/16 Date of : 62 Report #: [id number] THIS REPORT FOR: //name// CC: José Miguel Garcia DATE OF SERVICE: 03/17/2016 ADDENDUM The patient missed some therapies during his rehab stay on 03/14/2016 and 03/16/2016 secondary to dialysis. <ELECTRONICALLY SIGNED> By: José Miguel Jordan MD 04/13/16 1342 1006 1042 José Miguel Jordan MD /nt
[~2016-03-12 11:06] MED LIST changes: +HUMALOG100 UNIT/1 SUBQ; +LEVAQUIN 250 M250 MG PO; +ONDANSETRON HCL4 M2 PO; +PERCOCET 10-321 EACH PO; +REGLAN 10 MG TA10 MG PO
[2016-03-12 12:00] VITALS: BP 160/79
[2016-03-12 16:00] VITALS: BP 113/68
[2016-03-13 05:11] VITALS: BP 146/80
[2016-03-13 08:00] VITALS: BP 144/84
[2016-03-14 05:24] VITALS: BP 124/65
[2016-03-14 06:01] LABS: ABSOLUTE NEUTROPHILS 11.7 thou/uL (1.4-8.2); BASOPHILS 0.4 % (0.0-2.0); EOSINOPHILS 3.3 % (0.0-3.0); HEMATOCRIT 24.6 % (42.0-52.0); LYMPHOCYTES 12.7 % (24.0-44.0); MCH 28.4 pg (26.0-34.0); MCHC 32.6 % (28.0-37.0); MCV 87.1 fL (80.0-100.0); PLATELET COUNT 590 thou/uL (150-400); POLYS 78.6 % (36.0-66.0); RBC 2.82 mil/uL (4.50-6.00); RDW 14.9 % (10.5-14.5); WBC 14.9 thou/uL (4.0-11.0)
[2016-03-14 06:04] LABS: MANUAL DIFF NO
[2016-03-14 06:20] LABS: CALCIUM 7.9 mg/dL (8.5-10.1); POTASSIUM 5.2 mmol/L (3.5-5.1)
[2016-03-14 06:21] LABS: CREATININE 12.1 mg/dL (0.6-1.3)
[2016-03-14 08:00] VITALS: BP 137/69
[2016-03-14 17:00] VITALS: BP 135/68
[2016-03-15 06:06] VITALS: BP 154/82
[2016-03-15 08:00] VITALS: BP 163/92
[2016-03-15 15:30] VITALS: BP 155/78
[2016-03-16 05:30] VITALS: BP 138/86
[2016-03-16 16:00] VITALS: BP 181/97
[2016-03-16 17:36] VITALS: BP 181/97
[2016-03-17 05:27] VITALS: BP 149/79
[2016-03-17 06:03] LABS: ALBUMIN 2.1 g/dL (3.4-5.0); CALCIUM 8.1 mg/dL (8.5-10.1); POTASSIUM 4.5 mmol/L (3.5-5.1)
[2016-03-17 06:10] LABS: CREATININE 6.8 mg/dL (0.6-1.3)
[2016-03-17] MEDS ORDERED: LASIX 40 MG TAB40 M1 PO (08:14)
[2016-03-17] MEDS ORDERED: AUGMENTIN 875875 MG PO (08:18)
[2016-03-17 08:30] VITALS: BP 149/79
[2016-03-17 09:06] VITALS: BP 166/90
[2016-03-17 09:32] LABS: ABSOLUTE NEUTROPHILS 6.9 thou/uL (1.4-8.2); BASOPHILS 0.8 % (0.0-2.0); EOSINOPHILS 3.7 % (0.0-3.0); HEMATOCRIT 22.9 % (42.0-52.0); HEMOGLOBIN 7.7 gm/dL (14.0-18.0); LYMPHOCYTES 15.8 % (24.0-44.0); MCHC 33.5 % (28.0-37.0); MCV 86.7 fL (80.0-100.0); MONOCYTES 9.4 % (1.0-8.0); PLATELET COUNT 525 thou/uL (150-400); POLYS 70.3 % (36.0-66.0); RBC 2.64 mil/uL (4.50-6.00); RDW 14.9 % (10.5-14.5); WBC 9.8 thou/uL (4.0-11.0)
[2016-03-17 09:33] LABS: MANUAL DIFF NO
[2016-03-17 10:14] VITALS: BP 149/79
[2016-03-17 13:42] VITALS: BP 149/79
[2016-05-05] MEDS ORDERED: PROTONIX40 M1 PO (13:59)
[2016-05-06] MEDS ORDERED: PERCOCET 10-321 EACH PO (11:11)
[2016-05-06] MEDS ORDERED: NORVASC10 MG PO (11:11)
[2016-05-06] MEDS ORDERED: ATIVAN0.5 MG PO (11:11)
[2016-05-06] MEDS ORDERED: ESTRADIOL 1 MG T1 M1 PO (11:11)
== END 2016-03-17 18:40 | disposition home health service (06) | DRG 559 ==
LOC: 4W 11:06
PROVIDERS: Family Medicine; Internal Medicine Nephrology; Specialist
PROC: 5A1D60Z (ICD-10-PCS; principal; 2016-03-17)
DX: Z47.81 Encounter for orthopedic aftercare following surgical amputation (principal); N18.6 End stage renal disease; I12.0 Hypertensive chronic kidney disease with stage 5 chronic kidney disease or end stage renal disease; F32.9 Major depressive disorder, single episode, unspecified; G31.84 Mild cognitive impairment of uncertain or unknown etiology; E11.22 Type 2 diabetes mellitus with diabetic chronic kidney disease; E78.5 Hyperlipidemia, unspecified; G47.33 Obstructive sleep apnea (adult) (pediatric); I25.10 Atherosclerotic heart disease of native coronary artery without angina pectoris; E11.51 Type 2 diabetes mellitus with diabetic peripheral angiopathy without gangrene; E11.40 Type 2 diabetes mellitus with diabetic neuropathy, unspecified; K21.9 Gastro-esophageal reflux disease without esophagitis; R26.9 Unspecified abnormalities of gait and mobility; E11.621 Type 2 diabetes mellitus with foot ulcer; L97.509 Non-pressure chronic ulcer of other part of unspecified foot with unspecified severity; D64.9 Anemia, unspecified; D72.829 Elevated white blood cell count, unspecified; Z95.1 Presence of aortocoronary bypass graft; Z88.8 Allergy status to other drugs, medicaments and biological substances; Z99.2 Dependence on renal dialysis
CPT/HCPCS: 10112; 32100

== ENCOUNTER → 2016-03-21 | Outpatient (CLI) | payer OTHER ==
[~2016-03-21] MED LIST changes: +ESTRADIOL 1 MG T1 M1 PO; +LASIX 40 MG TAB40 M1 PO
== END ==
LOC: HYPER 07:00
DX: T87.89 Other complications of amputation stump (principal); E11.621 Type 2 diabetes mellitus with foot ulcer; L97.422 Non-pressure chronic ulcer of left heel and midfoot with fat layer exposed; E11.51 Type 2 diabetes mellitus with diabetic peripheral angiopathy without gangrene; E11.22 Type 2 diabetes mellitus with diabetic chronic kidney disease; N18.6 End stage renal disease; Z89.512 Acquired absence of left leg below knee; Z79.4 Long term (current) use of insulin; Z87.891 Personal history of nicotine dependence; Z72.89 Other problems related to lifestyle; Y83.5 Amputation of limb(s) as the cause of abnormal reaction of the patient, or of later complication, without mention of misadventure at the time of the procedure

== ENCOUNTER → 2016-08-02 | Outpatient (CLI) | payer OTHER | LOC: HYPER 07:05 | DX: T87.81 Dehiscence of amputation stump (principal); E11.51 Type 2 diabetes mellitus with diabetic peripheral angiopathy without gangrene; E11.40 Type 2 diabetes mellitus with diabetic neuropathy, unspecified; E11.22 Type 2 diabetes mellitus with diabetic chronic kidney disease; N18.6 End stage renal disease; I25.10 Atherosclerotic heart disease of native coronary artery without angina pectoris; Z79.84 Long term (current) use of oral hypoglycemic drugs; Z79.4 Long term (current) use of insulin; Z99.2 Dependence on renal dialysis; Z87.891 Personal history of nicotine dependence; Z72.89 Other problems related to lifestyle; Y83.5 Amputation of limb(s) as the cause of abnormal reaction of the patient, or of later complication, without mention of misadventure at the time of the procedure ==

== ENCOUNTER 2017-03-17 03:20 | Inpatient (IN) | payer OTHER ==
[2017-03-17] VITALS (7 sets, daily range): BP systolic 120–212; BP diastolic 72–96
[~2017-03-17] VITALS: Ht 177.8 cm; Wt 124.7 kg
--- NOTE | ~2017-03-17 | D ---
[facility] [place] [address] DISCHARGE SUMMARY Name: JENNY RIOS Room #: 421-P [facility] IN M.R.#: [id number] Admission: 03/17/17 Attend Phys: Ryan Muhammad MD Discharge: 03/19/17 Date of : 62 Report #: [id number] THIS REPORT FOR: //name// CC: Ra Dent Garcia DATE OF SERVICE: 03/19/2017 HISTORY OF PRESENT ILLNESS: The patient is a 56-year-old man with multiple medical problems, including end-stage renal disease, on hemodialysis; diabetes mellitus, and hypertension who came to the hospital with upper GI bleed. Please refer to admission H and P for details. HOSPITALIZATION COURSE: The patient was hospitalized for upper GI bleed. His hemoglobin on admission was . He had EGD. EGD showed Ashley-Serrano tear. The patient has remained hemodynamically stable. He was treated with IV Protonix, that was changed to the p.o. at the discharge. He was also started on Carafate. The patient's condition remained stable during the hospital stay. He has remained asymptomatic, and he has not had any episodes of hematemesis while he is here. Currently, the patient's condition is acceptable, including his physical examination. Hemoglobin is stable 11.2. The patient will be discharged home on outpatient followup. DISCHARGE DIAGNOSIS: Upper gastrointestinal bleed, due to Ashley-Serrano tear. SECONDARY DIAGNOSES: Includes end-stage renal disease, diabetes mellitus, left below-knee amputation, hypertension, dyslipidemia, GERD, coronary artery disease, gastroparesis, and obesity. DISCHARGE MEDICATIONS: The patient is started on Carafate during this admission. All other medications are continued unchanged. Please refer to the medication reconciliation list. FOLLOWUP PLAN: 1. Follow up with the primary care physician in 1-2 weeks. 2. Hemodialysis as scheduled. <ELECTRONICALLY SIGNED> By: Margy Bethea MD 03/21/17 1647 1254 1352 Margy Bethea MD /nt
--- NOTE | ~2017-03-17 | P ---
[facility] [place] [address] PROCEDURE REPORT Name: JENNY RIOS Room #: 170-9 ADM IN M.R.#: [id number] Admission: 03/17/17 Attend Phys: Ryan Muhammad MD Discharge: Date of : 62 Report #: [id number] THIS REPORT FOR: //name// CC: Ra Muhammad [facility] DATE OF SERVICE: 03/17/2017 PROCEDURE PERFORMED: Upper endoscopy. HISTORY OF PRESENT ILLNESS: The patient is a 56-year-old male who began having mid epigastric abdominal pain, nausea, vomiting and hematemesis early this morning. CT scan of the abdomen and pelvis shows possible hematoma or blood clot within the gastric fundus. The patient has had a previous upper GI bleed from duodenal ulcer last year, had EGD, colonoscopy and M2 capsule at that time. His hemoglobin currently is 12. Plan is for EGD. He does take aspirin, but is also on Protonix twice a day. DESCRIPTION OF PROCEDURE: The risks and benefits of the procedure were explained to the patient, those risks including but not limited to bleeding, perforation, the risk of sedation. He understood these risks and gave informed consent. Sedation was given using propofol per anesthesia. Next, using a standard Digital Lumensn upper endoscope, the scope was placed in the patient's mouth and advanced under direct vision through the esophagus, stomach and into the second portion of the duodenum. The larynx was normal in appearance. The upper and mid esophagus was normal in appearance. In the distal esophagus at the GE junction, there appears to be a Ashley-Serrano tear. There is no active bleeding, no clot, but there is a linear ulceration in this area that appears to be a recent Ashley-Serrano tear. Overall, the gastric fundus was normal. There was no mucosal abnormality and no old blood was noted throughout the exam today. The gastric body and antrum were normal. The pylorus was normal and patent. The duodenal bulb, first and second portion were essentially normal. There was some mild erythema in the duodenal bulb, but no evidence of ulcerations or erosions and again no evidence of blood within the duodenum. At this point, the scope was then withdrawn and the procedure terminated. The patient tolerated the procedure well. IMPRESSION: Suspected Ashley-Serrano tear at gastroesophageal junction, likely source of recent upper gastrointestinal bleed. No evidence of active bleeding or old blood in the stomach at this time. Would recommend continuing PPI drip for today. We will add liquid Carafate and advance diet slowly. [address] [address] PROCEDURE REPORT Name: JENNY RIOSNE Room #: 170-9 [facility] IN M.R.#: [id number] Admission: 03/17/17 Attend Phys: Ryan Muhammad MD Discharge: Date of : 62 Report #: [id number] Thank you for allowing me to participate in his care. <ELECTRONICALLY SIGNED> By: Ra Flores MD 03/17/17 1236 1052 1146 Ra Flores MD /nt
--- NOTE | ~2017-03-17 | HC ---
[facility] [place] [address] CONSULTATION Name: JENNY RIOS Room #: 170-9 ADM IN .R.#: [id number] Admission: 03/17/17 Attend Phys: Ryan Muhammad MD Discharge: Date of : 62 Report #: [id number] THIS REPORT FOR: //name// CC: Ra Dent Garcia DATE OF SERVICE: 03/17/2017 HISTORY OF PRESENT ILLNESS: The patient is a 56-year-old male with multiple medical problems including end-stage renal disease, on hemodialysis; insulin-dependent diabetes; hypertension; again having abdominal pain and hematemesis last night. Pain was described as fairly midepigastric. He does take aspirin. He is also on Protonix on a daily basis. He denies any dysphagia. He denies any significant heartburn symptoms. He denies any recent melanotic stools. His hemoglobin on admission was 12.2. His last hemoglobin in the computer was 7.5 and this was May of last year. Last year, he presented with an upper GI bleed in April-May. He underwent an EGD and colonoscopy followed by an M2 capsule. M2 capsule actually saw an ulcer with stigmata of recent bleeding and this was done on 05/01/2016. The patient had been on PPI therapy and bleeding resolved. He had a CT scan of the abdomen and pelvis early this morning due to his symptoms. This showed a lobulated 4.23 x 3 x 3.3 cm hyperdense focus in the dependent portion of the gastric fundus suspicious for blood and hematoma. There is a 1.4 cm fat-containing mass in the course of the left adrenal gland, otherwise negative. Of note, the patient also has a history of gastroparesis, but reports not having nausea and vomiting most of the time. He denies any fevers or chills. No chest pain or shortness of breath. He has had a left riyci-vim-zrmp amputation. He has had previous open heart surgery, stent placements. PAST MEDICAL HISTORY: End-stage renal disease, on hemodialysis; history of hypertension; peripheral vascular disease; coronary artery disease, status post CABG x 4 in 2009;, insulin-dependent diabetes; stent placement in the peripheral vascular system: He has undergone a left mktyi-xvz-hjpb amputation, history of pulmonary edema, previous history of anemia and upper GI bleed last year, sleep apnea, neuropathy, amputation of second and third toes on the right foot. MEDICATIONS FROM HOME: Lasix, Humalog, Levemir, Protonix 40 mg b.i.d., Ativan p.r.n., Estrace, Percocet, Norvasc, Reglan 10 mg q.a.c. and at bedtime, Lipitor, Renvela, Zoloft, Colace, Cozaar, Neurontin, Mirapex, Ativan, Ambien, Norvasc, aspirin 81 mg, Coreg, Valium, Benadryl, NovoLog, Imodium p.r.n., Zofran p.r.n., probiotic, Ultram, Nephrocaps. ALLERGIES: Xanax. [address] [address] CONSULTATION Name: GABRIELJENNYVAHID HERNANDEZ Room #: 170-9 ADM IN M.R.#: [id number] Admission: 03/17/17 Attend Phys: Ryan Muhammad MD Discharge: Date of : 62 Report #: [id number] REVIEW OF SYSTEMS: As per HPI. SOCIAL HISTORY: He denies any tobacco or alcohol use. PHYSICAL EXAMINATION: VITAL SIGNS: Temperature is 97.9, pulse 77, blood pressure is 156/96, respiratory rate is 16. GENERAL: He is alert and oriented x 3 in no acute distress. HEENT: Sclerae nonicteric. Oropharynx clear. NECK: Supple, without lymphadenopathy. CARDIOVASCULAR: Regular rate and rhythm. CHEST: Clear to auscultation anteriorly bilaterally. ABDOMEN: Soft. He is minimally tender in the midepigastrium, nondistended, normoactive bowel sounds. EXTREMITIES: Left hjelc-sio-oken amputation noted. No cyanosis, clubbing or edema. LABORATORY DATA: Sodium 129, potassium 4.5, chloride 88, bicarbonate 29, BUN 51, creatinine is 10.3 with glucose 303, AST 28, total bilirubin 0.4, alkaline phosphatase 98, ALT is 23, total protein 8.8, albumin 3.3. WBC is 11.0, hemoglobin 12.2, MCV 89.7, platelet count is 350. ASSESSMENT AND PLAN: Upper gastrointestinal bleed. CT showing a possible clot within the gastric fundus. Plan is for upper endoscopy today. The patient has been started on a Protonix drip and is n.p.o. at this time. We will make further recommendations after endoscopy. Thank you for allowing me to participate in his care. <ELECTRONICALLY SIGNED> By: Ra Flores MD 03/17/17 1236 1046 1131 Ra Flores MD /nt
--- NOTE | ~2017-03-17 | HC ---
[facility] [place] [address] CONSULTATION Name: JENNY RIOS Room #: 421-P [facility] IN M.R.#: [id number] Admission: 03/17/17 Attend Phys: Ryan Muhammad MD Discharge: 03/19/17 Date of : 62 Report #: [id number] THIS REPORT FOR: //name// CC: Ra Garcia REASON FOR PRESENTATION: Hematemesis. REASON COR CONSULTATION: End-stage renal disease. HISTORY OF PRESENT ILLNESS: A 56-year-old with diabetes mellitus, hypertension, all complications related to diabetes mellitus including coronary artery disease, end-stage renal disease. Status post left BKA. He is on dialysis every Sunday, and Sunday. He continues to have major issues with fluid retention. He presented with persistent nausea and vomiting over the last 3 days. This was associated with hematemesis in the last 24 hours. He is known to have major issues with his blood pressure medications. CTA revealed that there is a possibility of blood versus clot in the dependent part of the stomach and was admitted for further evaluation and management. He denies nonsteroidal anti-inflammatory medications intake. He denies dizziness. No melena. PAST MEDICAL HISTORY: 1. End-stage renal disease. 2. Diabetes mellitus. 3. Status post left BKA. 4. All diabetic complications including neuropathy, retinopathy. 5. Obstructive sleep apnea. 6. Status post CABG. 7. Peripheral vascular disease. 8. Cholecystectomy. 9. Left upper fistula. MEDICATIONS: 1. Lasix. 2. Insulin. 3. Estradiol. 4. Amlodipine. 5. Sertraline. 6. Losartan. 7. Folic acid. 8. Calcitriol. 9. Aspirin. 10. Carvedilol. 11. Diazepam. ALLERGIES: ALPRAZOLAM. [facility] [address] [place] [address] CONSULTATION Name: GABRIELJENNY MARY Room #: 421-P DIS IN .R.#: [id number] Admission: 03/17/17 Attend Phys: Ryan Muhammad MD Discharge: 03/19/17 Date of : 62 Report #: [id number] SOCIAL HISTORY: No drug or alcohol abuse. He lives with his . REVIEW OF SYSTEMS: GENERAL: No fever, but significant for weakness. CARDIOVASCULAR: No chest pain or palpitation. PULMONARY: No cough or hemoptysis. GASTROINTESTINAL: As per history of present illness. NEUROLOGICAL: Some dizziness. MUSCULOSKELETAL: Left BKA. PHYSICAL EXAMINATION: GENERAL: Alert, oriented, no apparent distress. VITAL SIGNS: Blood pressure 156/96. HEAD AND NECK: No jugular venous distention and no thyromegaly. LUNGS: Clear to auscultation bilaterally. CARDIOVASCULAR: Regular with no rub. ABDOMEN: Soft, nontender. LOWER EXTREMITIES: Left BKA. LABORATORY VALUES: Reviewed. Hemoglobin 12.2, sodium 129, BUN 51, creatinine 10.3. IMAGING: CT was reviewed, seems to be that there is evidence of upper GI bleeding with blood in the dependent part of the stomach. ASSESSMENT AND PLAN: 1. End-stage renal disease. 2. Hematemesis. 3. Diabetes mellitus. 4. Hypertension. 5. Peripheral artery disease. 6. Status post coronary artery bypass graft. 7. Admission. 8. Discontinue IV fluid. 9. Hemodialysis today. 10. IV Protonix. 11. No blood thinners for now. 12. GI to evaluate. <ELECTRONICALLY SIGNED> By: Macey Obrien MD 04/08/17 1703 0932 1138 Macey Obrien MD /nt
[2017-03-17 04:01] LABS: ABSOLUTE NEUTROPHILS 8.7 thou/uL (1.4-8.2); BASOPHILS 1.1 % (0.0-2.0); EOSINOPHILS 2.8 % (0.0-3.0); HEMOGLOBIN 12.2 gm/dL (14.0-18.0); LYMPHOCYTES 9.5 % (24.0-44.0); MCH 29.7 pg (26.0-34.0); MCHC 33.1 g/dL (28.0-37.0); MCV 89.7 fL (80.0-100.0); MONOCYTES 7.5 % (1.0-8.0); PLATELET COUNT 350 thou/uL (150-400); POLYS 79.1 % (36.0-66.0); RBC 4.12 mil/uL (4.50-6.00); RDW 15.2 % (10.5-14.5)
[2017-03-17 04:12] LABS: CALCIUM 8.6 mg/dL (8.5-10.1); CREATININE 10.3 mg/dL (0.7-1.3); POTASSIUM 4.5 mmol/L (3.5-5.1)
[2017-03-17 04:16] LABS: APTT 26.8 Seconds (24.5-32.8); INR 1.1; PROTIME 11.1 Seconds (9.3-11.4)
[2017-03-17 04:18] LABS: ALBUMIN 3.3 g/dL (3.4-5.0); TOTAL BILIRUBIN 0.4 mg/dL (<0.1-1.0); TOTAL PROTEIN 8.8 g/dL (6.4-8.2)
[2017-03-17] MEDS ORDERED: ROCALTROL0.5 MCG PO (04:22)
[2017-03-17] MEDS ORDERED: NORVASC5 MG PO (04:23)
[2017-03-17] MEDS ORDERED: ASPIR 8181 MG PO (04:23)
[2017-03-17] MEDS ORDERED: VALIUM5 MG PO (04:24)
[2017-03-17] MEDS ORDERED: COREG25 MG PO (04:24)
[2017-03-17] MEDS ORDERED: BENADRYL25 MG PO (04:25)
[2017-03-17] MEDS ORDERED: NOVOLOG100 UNIT/1 SUBQ (04:31)
[2017-03-17] MEDS ORDERED: LOPERAMIDE 2 MG2 M1 PO (04:31)
[2017-03-17] MEDS ORDERED: ONDANSETRON HCL4 M2 PO (04:33)
[2017-03-17] MEDS ORDERED: PROBIOTIC1 EAC1 PO (04:34)
[2017-03-17] MEDS ORDERED: TRAMADOL 50 MG50 MG PO (04:37)
[2017-03-18] VITALS (7 sets, daily range): BP systolic 74–140; BP diastolic 42–81
[2017-03-18 06:24] LABS: ABSOLUTE NEUTROPHILS 5.1 thou/uL (1.4-8.2); BASOPHILS 1.1 % (0.0-2.0); EOSINOPHILS 4.7 % (0.0-3.0); LYMPHOCYTES 17.1 % (24.0-44.0); MCH 29.8 pg (26.0-34.0); MCHC 32.6 g/dL (28.0-37.0); MCV 91.4 fL (80.0-100.0); MONOCYTES 11.7 % (1.0-8.0); PLATELET COUNT 340 thou/uL (150-400); POLYS 65.4 % (36.0-66.0); RBC 4.04 mil/uL (4.50-6.00); RDW 15.5 % (10.5-14.5); WBC 7.9 thou/uL (4.0-11.0)
[2017-03-18 06:31] LABS: CALCIUM 8.4 mg/dL (8.5-10.1); POTASSIUM 3.8 mmol/L (3.5-5.1)
[2017-03-18 06:32] LABS: CREATININE 7.9 mg/dL (0.7-1.3)
[2017-03-19 04:09] VITALS: BP 108/63
[2017-03-19 07:19] LABS: ABSOLUTE NEUTROPHILS 5.3 thou/uL (1.4-8.2); BASOPHILS 0.7 % (0.0-2.0); EOSINOPHILS 6.4 % (0.0-3.0); HEMATOCRIT 34.1 % (42.0-52.0); HEMOGLOBIN 11.2 gm/dL (14.0-18.0); LYMPHOCYTES 18.1 % (24.0-44.0); MCH 29.9 pg (26.0-34.0); MCHC 32.7 g/dL (28.0-37.0); MCV 91.3 fL (80.0-100.0); MONOCYTES 11.2 % (1.0-8.0); PLATELET COUNT 305 thou/uL (150-400); POLYS 63.6 % (36.0-66.0); RBC 3.74 mil/uL (4.50-6.00); RDW 15.3 % (10.5-14.5); WBC 8.4 thou/uL (4.0-11.0)
[2017-03-19 07:25] VITALS: BP 133/79
[2017-03-19 07:44] LABS: POTASSIUM 4.1 mmol/L (3.5-5.1)
[2017-03-19 07:46] LABS: CREATININE 10.5 mg/dL (0.7-1.3)
[2017-03-19] MEDS ORDERED: CARAFATE 11 GM/10 M1 PO (13:06)
[2017-03-19 13:16] VITALS: BP 133/79
[2017-07-08] MEDS ORDERED: CARAFATE 1 GM TA1 G1 PO (10:24)
[2017-07-25] MEDS ORDERED: ZOSYN 3.3753.375 GM IV (16:24)
[2017-07-25] MEDS ORDERED: PLAVIX 75 MG TA75 M1 PO (16:24)
[2017-07-25] MEDS ORDERED: HEPARIN SO5000 UNIT/ SUBQ (16:24)
[2017-07-25] MEDS ORDERED: VANCOMYCIN1 GM/1001 IV (16:24)
[2017-07-25] MEDS ORDERED: NOVOLOG100 UNIT/1 SUBQ (16:24)
== END 2017-03-19 15:46 | disposition home or self-care (01) | DRG 368 ==
LOC: ER 03:20 → EROBS 04:33 → 4E 04:33 → ENTRNSPT 03-19 15:33 → EDTRNSPTSTS 03-19 15:35 → 4E 03-19 15:46
PROVIDERS: Emergency Medicine; Internal Medicine Endocrinology, Diabetes & Metabolism
PROC: 0DJ08ZZ Inspection of Upper Intestinal Tract, Via Natural or Artificial Opening Endoscopic (ICD-10-PCS; principal; 2017-03-17)
PROC: 5A1D70Z Performance of Urinary Filtration, Intermittent, Less than 6 Hours Per Day (ICD-10-PCS; 2017-03-17)
DX: K22.6 Gastro-esophageal laceration-hemorrhage syndrome (principal); N18.6 End stage renal disease; I12.0 Hypertensive chronic kidney disease with stage 5 chronic kidney disease or end stage renal disease; K92.2 Gastrointestinal hemorrhage, unspecified; E78.00 Pure hypercholesterolemia, unspecified; K21.9 Gastro-esophageal reflux disease without esophagitis; I25.10 Atherosclerotic heart disease of native coronary artery without angina pectoris; E11.51 Type 2 diabetes mellitus with diabetic peripheral angiopathy without gangrene; E11.319 Type 2 diabetes mellitus with unspecified diabetic retinopathy without macular edema; E11.22 Type 2 diabetes mellitus with diabetic chronic kidney disease; K92.0 Hematemesis; E11.65 Type 2 diabetes mellitus with hyperglycemia; E11.40 Type 2 diabetes mellitus with diabetic neuropathy, unspecified; Z89.422 Acquired absence of other left toe(s); Z95.1 Presence of aortocoronary bypass graft; Z95.820 Peripheral vascular angioplasty status with implants and grafts; Z79.4 Long term (current) use of insulin; Z88.8 Allergy status to other drugs, medicaments and biological substances; Z89.512 Acquired absence of left leg below knee; Z79.899 Other long term (current) drug therapy; Z82.49 Family history of ischemic heart disease and other diseases of the circulatory system; Z83.3 Family history of diabetes mellitus; Z99.2 Dependence on renal dialysis
CPT/HCPCS: 10183; 32100; 62110; 62900; 70005

== ENCOUNTER 2017-05-09 15:56 | Inpatient (IN) | payer OTHER ==
[~2017-05-09] VITALS: Ht 180.3 cm; Wt 95.1 kg
--- NOTE | ~2017-05-09 | HC ---
[facility] [place] [address] CONSULTATION Name: JENNY RIOS Room #: 420-P [facility] IN M.R.#: [id number] Admission: 05/09/17 Attend Phys: Ryan Muhammad MD Discharge: 05/10/17 Date of : 62 Report #: [id number] THIS REPORT FOR: //name// CC: Ryan Garcia REASON FOR CONSULTATION: End-stage renal disease. REASON FOR THE PRESENTATION: Nausea and vomiting. HISTORY OF PRESENT ILLNESS: A 57-year-old with end-stage renal disease due to diabetes mellitus and hypertension. Recently had a Ashley-Serrano tear. He presented reporting to the Emergency Room that he had some issues with abdominal pain, vomiting, diarrhea. He is known to have extreme noncompliance with his fluid and blood sugar issues. He tends to have excessive interdialytic weight gain complicating his blood pressure issues. He is also known to have hypertension, diabetes mellitus with coronary artery disease and peripheral arterial disease. He was admitted to evaluate. He feels okay this morning. I am being consulted to manage his end-stage renal disease. PAST MEDICAL HISTORY: 1. End-stage renal disease. 2. Peripheral arterial disease post-amputation. 3. Diabetes mellitus. 4. Obstructive sleep apnea. 5. Hyperlipidemia. 6. CABG. 7. Peripheral arterial disease. 8. Cholecystectomy. 9. AV fistula. MEDICATIONS: 1. Furosemide. 2. Levemir. 3. Pantoprazole. 4. Oxycodone. 5. Metoprolol. 6. Sevelamer. 7. Gabapentin. 8. Losartan. ALLERGIES: ALPRAZOLAM. SOCIAL HISTORY: He lives with his . No drug or alcohol abuse. REVIEW OF SYSTEMS: GENERAL: No fever or chills. [facility] [address] [place] [address] CONSULTATION Name: JENNY RIOS Room #: 420-P DIS IN .R.#: [id number] Admission: 05/09/17 Attend Phys: Ryan Muhammad MD Discharge: 05/10/17 Date of : 62 Report #: [id number] CARDIOVASCULAR: No chest pain or palpitation. PULMONARY: No cough or hemoptysis. GASTROINTESTINAL: As per the history of present illness. MUSCULOSKELETAL: Amputation on the left side. PHYSICAL EXAMINATION: GENERAL: He is alert, oriented. VITAL SIGNS: Temperature 37.1, blood pressure is 119/18. HEAD AND NECK: No jugular venous distention, no bruit, no thyromegaly. CHEST: Clear to auscultation bilaterally. CARDIOVASCULAR: Regular, no rub. ABDOMEN: Soft, nontender. LOWER EXTREMITIES: Left below-knee amputation. LABORATORY DATA: Reviewed. BUN is 64, creatinine is 11.9, calcium 8.3, magnesium 2.5, hemoglobin 12.7. CT abdomen negative. ASSESSMENT, IMPRESSION, PLAN: 1. End-stage renal disease. 2. Known gastroparesis. 3. Noncompliance. 4. Diabetes mellitus. 5. Hypertension. 6. Coronary artery disease. 7. We will arrange for the patient to have his usual dialysis today. 8. Avoid narcotics. 9. Hold some of his blood pressure medications. 10. No further workup for his GI is needed as he had extensive workup in the past. <ELECTRONICALLY SIGNED> By: Macey Obrien MD 05/14/17 0957 0833 1756 Macey Obrien MD /nt
[~2017-05-09 15:56] MED LIST changes: +ASPIR 8181 MG PO; +BENADRYL25 MG PO; +CARAFATE 11 GM/10 M1 PO; +NORVASC5 MG PO; +PROBIOTIC1 EAC1 PO; +ROCALTROL0.5 MCG PO; +TRAMADOL 50 MG50 MG PO; +VALIUM5 MG PO
[2017-05-09] MEDS ORDERED: FERRLECIT62.5 MG/2 IV (16:47)
[2017-05-09 18:12] LABS: ABSOLUTE NEUTROPHILS 6.8 thou/uL (1.4-8.2); BASOPHILS 0.8 % (0.0-2.0); EOSINOPHILS 1.1 % (0.0-3.0); HEMATOCRIT 38.7 % (42.0-52.0); HEMOGLOBIN 12.7 gm/dL (14.0-18.0); LYMPHOCYTES 9.3 % (24.0-44.0); MCH 30.1 pg (26.0-34.0); MCHC 32.8 g/dL (28.0-37.0); MCV 91.6 fL (80.0-100.0); MONOCYTES 11.4 % (1.0-8.0); PLATELET COUNT 290 thou/uL (150-400); POLYS 77.4 % (36.0-66.0); RBC 4.22 mil/uL (4.50-6.00); RDW 17.4 % (10.5-14.5); WBC 8.8 thou/uL (4.0-11.0)
[2017-05-09 18:27] LABS: CALCIUM 9.4 mg/dL (8.5-10.1); CREATININE 10.7 mg/dL (0.7-1.3); POTASSIUM 4.3 mmol/L (3.5-5.1)
[2017-05-09 18:32] LABS: ALBUMIN 3.6 g/dL (3.4-5.0); TOTAL BILIRUBIN 0.5 mg/dL (<0.1-1.0); TOTAL PROTEIN 9.2 g/dL (6.4-8.2)
[2017-05-09 20:00] VITALS: BP 160/109
[2017-05-09 20:56] VITALS: BP 180/81
[2017-05-09 22:27] VITALS: BP 121/84
[2017-05-10] MEDS ORDERED: TRESIBA FL100 UNIT/1 INJECTION (02:13)
[2017-05-10] MEDS ORDERED: NOVOLOG100 UNIT/M SUBQ (02:14)
[2017-05-10 03:55] VITALS: BP 82/31
[2017-05-10 06:55] LABS: CALCIUM 8.3 mg/dL (8.5-10.1); MAGNESIUM 2.5 mg/dL (1.8-2.4)
[2017-05-10 06:56] LABS: CREATININE 11.9 mg/dL (0.7-1.3)
[2017-05-10 07:32] VITALS: BP 91/59
[2017-05-10 13:49] VITALS: BP 91/59
[2017-07-08] MEDS ORDERED: CARAFATE 1 GM TA1 G1 PO (10:24)
[2017-07-25] MEDS ORDERED: HEPARIN SO5000 UNIT/ SUBQ (16:24)
[2017-07-25] MEDS ORDERED: ZOSYN 3.3753.375 GM IV (16:24)
[2017-07-25] MEDS ORDERED: VANCOMYCIN1 GM/1001 IV (16:24)
[2017-07-25] MEDS ORDERED: PLAVIX 75 MG TA75 M1 PO (16:24)
[2017-07-25] MEDS ORDERED: NOVOLOG100 UNIT/1 SUBQ (16:24)
== END 2017-05-10 15:23 | disposition home or self-care (01) | DRG 73 ==
LOC: ER 15:56 → 4E 19:29 → EROBS 19:29 → 4E 21:21 → ENTRNSPT 05-10 15:03 → EDTRNSPTSTS 05-10 15:22 → 4E 05-10 15:23
PROVIDERS: Nurse Practitioner Acute Care; Physician Assistant
PROC: 5A1D70Z Performance of Urinary Filtration, Intermittent, Less than 6 Hours Per Day (ICD-10-PCS; principal; 2017-05-10)
DX: E11.43 Type 2 diabetes mellitus with diabetic autonomic (poly)neuropathy (principal); N18.6 End stage renal disease; I12.0 Hypertensive chronic kidney disease with stage 5 chronic kidney disease or end stage renal disease; E11.22 Type 2 diabetes mellitus with diabetic chronic kidney disease; E11.40 Type 2 diabetes mellitus with diabetic neuropathy, unspecified; E78.00 Pure hypercholesterolemia, unspecified; K21.9 Gastro-esophageal reflux disease without esophagitis; G47.33 Obstructive sleep apnea (adult) (pediatric); K31.84 Gastroparesis; I25.10 Atherosclerotic heart disease of native coronary artery without angina pectoris; E11.51 Type 2 diabetes mellitus with diabetic peripheral angiopathy without gangrene; Z90.49 Acquired absence of other specified parts of digestive tract; Z88.8 Allergy status to other drugs, medicaments and biological substances; Z95.1 Presence of aortocoronary bypass graft; Z89.512 Acquired absence of left leg below knee; Z79.899 Other long term (current) drug therapy; Z82.49 Family history of ischemic heart disease and other diseases of the circulatory system; Z83.3 Family history of diabetes mellitus
CPT/HCPCS: 10183; 32100

== ENCOUNTER 2017-06-16 18:20 | Emergency (ER) | payer OTHER ==
[~2017-06-16] VITALS: Ht 177.8 cm; Wt 117.9 kg
[~2017-06-16 18:20] MED LIST changes: +FERRLECIT62.5 MG/2 IV; +NOVOLOG100 UNIT/M SUBQ; +TRESIBA FL100 UNIT/1 INJECTION
[2017-06-16 19:03] LABS: ABSOLUTE NEUTROPHILS 7.2 thou/uL (1.4-8.2); BASOPHILS 1.1 % (0.0-2.0); EOSINOPHILS 1.9 % (0.0-3.0); HEMATOCRIT 41.2 % (42.0-52.0); HEMOGLOBIN 13.5 gm/dL (14.0-18.0); LYMPHOCYTES 10.3 % (24.0-44.0); MCHC 32.8 g/dL (28.0-37.0); MCV 91.4 fL (80.0-100.0); MONOCYTES 8.5 % (1.0-8.0); PLATELET COUNT 328 thou/uL (150-400); POLYS 78.2 % (36.0-66.0); RBC 4.51 mil/uL (4.50-6.00); RDW 15.9 % (10.5-14.5); WBC 9.2 thou/uL (4.0-11.0)
[2017-06-16 19:18] LABS: CALCIUM 9.1 mg/dL (8.5-10.1); POTASSIUM 3.8 mmol/L (3.5-5.1)
[2017-06-16 19:24] LABS: ALBUMIN 3.6 g/dL (3.4-5.0); DIRECT BILIRUBIN 0.1 mg/dL (<0.1-0.3); TOTAL BILIRUBIN 0.5 mg/dL (<0.1-1.0)
[2017-06-16] MEDS ORDERED: PHENERGAN25 M1 RECTAL (21:04)
[2017-06-16] MEDS ORDERED: PHENERGAN 25 MG25 M1 PO (21:04)
== END 2017-06-16 21:00 | disposition home or self-care (01) ==
LOC: ER 18:20
PROVIDERS: Emergency Medicine
DX: R11.2 Nausea with vomiting, unspecified (principal); E11.9 Type 2 diabetes mellitus without complications; I10 Essential (primary) hypertension; E78.00 Pure hypercholesterolemia, unspecified; K21.9 Gastro-esophageal reflux disease without esophagitis; I25.810 Atherosclerosis of coronary artery bypass graft(s) without angina pectoris; Z88.8 Allergy status to other drugs, medicaments and biological substances

== ENCOUNTER → 2017-08-27 | Outpatient (CLI) | payer OTHER ==
[~2017-08-27] MED LIST changes: +CARAFATE 1 GM TA1 G1 PO; +HEPARIN SO5000 UNIT/ SUBQ; +PHENERGAN 25 MG25 M1 PO; +PHENERGAN25 M1 RECTAL; +VANCOMYCIN1 GM/1001 IV; +ZOSYN 3.3753.375 GM IV
== END ==
LOC: HYPER 07:06
DX: T87.81 Dehiscence of amputation stump (principal); E11.621 Type 2 diabetes mellitus with foot ulcer; L97.521 Non-pressure chronic ulcer of other part of left foot limited to breakdown of skin; E11.51 Type 2 diabetes mellitus with diabetic peripheral angiopathy without gangrene; E11.40 Type 2 diabetes mellitus with diabetic neuropathy, unspecified; E11.22 Type 2 diabetes mellitus with diabetic chronic kidney disease; N18.6 End stage renal disease; I25.10 Atherosclerotic heart disease of native coronary artery without angina pectoris; Z87.891 Personal history of nicotine dependence; Z79.84 Long term (current) use of oral hypoglycemic drugs; Z89.431 Acquired absence of right foot; Z79.4 Long term (current) use of insulin; Y83.5 Amputation of limb(s) as the cause of abnormal reaction of the patient, or of later complication, without mention of misadventure at the time of the procedure

== ENCOUNTER → 2017-08-28 | Outpatient (CLI) | payer OTHER | LOC: HYPER 06:58 | DX: E11.621 Type 2 diabetes mellitus with foot ulcer (principal); L97.521 Non-pressure chronic ulcer of other part of left foot limited to breakdown of skin; E11.51 Type 2 diabetes mellitus with diabetic peripheral angiopathy without gangrene; E11.22 Type 2 diabetes mellitus with diabetic chronic kidney disease; N18.6 End stage renal disease; E11.42 Type 2 diabetes mellitus with diabetic polyneuropathy; I25.10 Atherosclerotic heart disease of native coronary artery without angina pectoris; Z87.891 Personal history of nicotine dependence; Z79.4 Long term (current) use of insulin; Z79.84 Long term (current) use of oral hypoglycemic drugs; Z99.2 Dependence on renal dialysis ==

== ENCOUNTER → 2017-08-29 | Outpatient (CLI) | payer OTHER | LOC: HYPER 06:52 | DX: E11.622 Type 2 diabetes mellitus with other skin ulcer (principal); L97.511 Non-pressure chronic ulcer of other part of right foot limited to breakdown of skin; E11.51 Type 2 diabetes mellitus with diabetic peripheral angiopathy without gangrene; E11.42 Type 2 diabetes mellitus with diabetic polyneuropathy; N18.6 End stage renal disease; I25.10 Atherosclerotic heart disease of native coronary artery without angina pectoris; Z79.4 Long term (current) use of insulin; Z79.84 Long term (current) use of oral hypoglycemic drugs; Z87.891 Personal history of nicotine dependence ==

== ENCOUNTER → 2017-08-30 | Outpatient (CLI) | payer OTHER ==
[2017-08-30 11:44] LABS: GLUCOSE POCT 129 mg/dl (70-99)
[2017-08-30 13:34] LABS: GLUCOSE POCT 121 mg/dl (70-99)
== END ==
LOC: HYPER 06:47
PROVIDERS: Emergency Medicine
DX: E11.621 Type 2 diabetes mellitus with foot ulcer (principal); L97.511 Non-pressure chronic ulcer of other part of right foot limited to breakdown of skin; E13.51 Other specified diabetes mellitus with diabetic peripheral angiopathy without gangrene; E11.51 Type 2 diabetes mellitus with diabetic peripheral angiopathy without gangrene; E11.42 Type 2 diabetes mellitus with diabetic polyneuropathy; I25.10 Atherosclerotic heart disease of native coronary artery without angina pectoris; E11.22 Type 2 diabetes mellitus with diabetic chronic kidney disease; N18.6 End stage renal disease; Z87.891 Personal history of nicotine dependence

== ENCOUNTER → 2017-09-03 | Outpatient (CLI) | payer OTHER | LOC: HYPER 07:28 | DX: T81.4XXD Infection following a procedure, subsequent encounter (principal); E11.51 Type 2 diabetes mellitus with diabetic peripheral angiopathy without gangrene; N18.6 End stage renal disease; E11.40 Type 2 diabetes mellitus with diabetic neuropathy, unspecified; I25.10 Atherosclerotic heart disease of native coronary artery without angina pectoris; Z79.4 Long term (current) use of insulin; Z79.84 Long term (current) use of oral hypoglycemic drugs; Z89.431 Acquired absence of right foot; Z87.891 Personal history of nicotine dependence; Y83.8 Other surgical procedures as the cause of abnormal reaction of the patient, or of later complication, without mention of misadventure at the time of the procedure ==

== ENCOUNTER → 2017-09-04 | Outpatient (CLI) | payer OTHER | LOC: HYPER 06:50 | DX: T81.31XD Disruption of external operation (surgical) wound, not elsewhere classified, subsequent encounter (principal); E11.621 Type 2 diabetes mellitus with foot ulcer; L97.821 Non-pressure chronic ulcer of other part of left lower leg limited to breakdown of skin; E11.40 Type 2 diabetes mellitus with diabetic neuropathy, unspecified; E11.51 Type 2 diabetes mellitus with diabetic peripheral angiopathy without gangrene; E11.22 Type 2 diabetes mellitus with diabetic chronic kidney disease; N18.4 Chronic kidney disease, stage 4 (severe); I25.10 Atherosclerotic heart disease of native coronary artery without angina pectoris; Z79.4 Long term (current) use of insulin; Z89.431 Acquired absence of right foot; Z79.84 Long term (current) use of oral hypoglycemic drugs; Z87.891 Personal history of nicotine dependence; Y83.8 Other surgical procedures as the cause of abnormal reaction of the patient, or of later complication, without mention of misadventure at the time of the procedure ==

== ENCOUNTER → 2017-09-06 | Outpatient (CLI) | payer OTHER | LOC: HYPER 07:05 | DX: T81.4XXD Infection following a procedure, subsequent encounter (principal); E11.621 Type 2 diabetes mellitus with foot ulcer; L97.511 Non-pressure chronic ulcer of other part of right foot limited to breakdown of skin; E11.22 Type 2 diabetes mellitus with diabetic chronic kidney disease; N18.6 End stage renal disease; E11.40 Type 2 diabetes mellitus with diabetic neuropathy, unspecified; E11.51 Type 2 diabetes mellitus with diabetic peripheral angiopathy without gangrene; L84 Corns and callosities; I25.10 Atherosclerotic heart disease of native coronary artery without angina pectoris; Z87.891 Personal history of nicotine dependence; Z79.4 Long term (current) use of insulin; Z79.84 Long term (current) use of oral hypoglycemic drugs; Y83.8 Other surgical procedures as the cause of abnormal reaction of the patient, or of later complication, without mention of misadventure at the time of the procedure ==

== ENCOUNTER → 2017-09-07 | Outpatient (CLI) | payer OTHER | LOC: HYPER 08:24 | DX: T81.4XXD Infection following a procedure, subsequent encounter (principal); E11.622 Type 2 diabetes mellitus with other skin ulcer; L97.511 Non-pressure chronic ulcer of other part of right foot limited to breakdown of skin; E11.51 Type 2 diabetes mellitus with diabetic peripheral angiopathy without gangrene; E11.40 Type 2 diabetes mellitus with diabetic neuropathy, unspecified; I13.11 Hypertensive heart and chronic kidney disease without heart failure, with stage 5 chronic kidney disease, or end stage renal disease; E11.22 Type 2 diabetes mellitus with diabetic chronic kidney disease; N18.6 End stage renal disease; I25.10 Atherosclerotic heart disease of native coronary artery without angina pectoris; Z89.431 Acquired absence of right foot; Z79.4 Long term (current) use of insulin; Z79.84 Long term (current) use of oral hypoglycemic drugs; Y83.8 Other surgical procedures as the cause of abnormal reaction of the patient, or of later complication, without mention of misadventure at the time of the procedure ==

== ENCOUNTER → 2017-09-10 | Outpatient (CLI) | payer OTHER | LOC: HYPER 06:49 | DX: T81.4XXD Infection following a procedure, subsequent encounter (principal); E11.621 Type 2 diabetes mellitus with foot ulcer; L97.511 Non-pressure chronic ulcer of other part of right foot limited to breakdown of skin; E11.40 Type 2 diabetes mellitus with diabetic neuropathy, unspecified; E11.51 Type 2 diabetes mellitus with diabetic peripheral angiopathy without gangrene; E11.22 Type 2 diabetes mellitus with diabetic chronic kidney disease; N18.6 End stage renal disease; I25.10 Atherosclerotic heart disease of native coronary artery without angina pectoris; Z79.4 Long term (current) use of insulin; Z79.84 Long term (current) use of oral hypoglycemic drugs; Z87.891 Personal history of nicotine dependence; Y83.8 Other surgical procedures as the cause of abnormal reaction of the patient, or of later complication, without mention of misadventure at the time of the procedure ==

== ENCOUNTER → 2017-09-11 | Outpatient (CLI) | payer OTHER | LOC: HYPER 06:59 | DX: T81.4XXD Infection following a procedure, subsequent encounter (principal); E11.621 Type 2 diabetes mellitus with foot ulcer; L97.511 Non-pressure chronic ulcer of other part of right foot limited to breakdown of skin; E11.51 Type 2 diabetes mellitus with diabetic peripheral angiopathy without gangrene; E11.40 Type 2 diabetes mellitus with diabetic neuropathy, unspecified; E11.22 Type 2 diabetes mellitus with diabetic chronic kidney disease; I12.0 Hypertensive chronic kidney disease with stage 5 chronic kidney disease or end stage renal disease; N18.6 End stage renal disease; I25.10 Atherosclerotic heart disease of native coronary artery without angina pectoris; Z79.4 Long term (current) use of insulin; Z79.84 Long term (current) use of oral hypoglycemic drugs; Z89.431 Acquired absence of right foot; Z99.2 Dependence on renal dialysis; Z87.891 Personal history of nicotine dependence; Y83.8 Other surgical procedures as the cause of abnormal reaction of the patient, or of later complication, without mention of misadventure at the time of the procedure ==

== ENCOUNTER → 2017-09-12 | Outpatient (CLI) | payer OTHER | LOC: HYPER 06:48 | DX: T81.4XXD Infection following a procedure, subsequent encounter (principal); E11.622 Type 2 diabetes mellitus with other skin ulcer; L97.511 Non-pressure chronic ulcer of other part of right foot limited to breakdown of skin; E11.22 Type 2 diabetes mellitus with diabetic chronic kidney disease; I12.0 Hypertensive chronic kidney disease with stage 5 chronic kidney disease or end stage renal disease; N18.6 End stage renal disease; E11.51 Type 2 diabetes mellitus with diabetic peripheral angiopathy without gangrene; E11.40 Type 2 diabetes mellitus with diabetic neuropathy, unspecified; I25.10 Atherosclerotic heart disease of native coronary artery without angina pectoris; Z79.4 Long term (current) use of insulin; Z79.84 Long term (current) use of oral hypoglycemic drugs; Z89.431 Acquired absence of right foot; Z87.891 Personal history of nicotine dependence; Y83.8 Other surgical procedures as the cause of abnormal reaction of the patient, or of later complication, without mention of misadventure at the time of the procedure ==

== ENCOUNTER → 2017-09-13 | Outpatient (CLI) | payer OTHER | LOC: HYPER 07:07 | DX: T81.4XXD Infection following a procedure, subsequent encounter (principal); E11.621 Type 2 diabetes mellitus with foot ulcer; L97.511 Non-pressure chronic ulcer of other part of right foot limited to breakdown of skin; E11.51 Type 2 diabetes mellitus with diabetic peripheral angiopathy without gangrene; E11.22 Type 2 diabetes mellitus with diabetic chronic kidney disease; N18.6 End stage renal disease; I25.10 Atherosclerotic heart disease of native coronary artery without angina pectoris; Z79.4 Long term (current) use of insulin; Z89.431 Acquired absence of right foot; Z79.84 Long term (current) use of oral hypoglycemic drugs; Z87.891 Personal history of nicotine dependence; Y83.8 Other surgical procedures as the cause of abnormal reaction of the patient, or of later complication, without mention of misadventure at the time of the procedure ==

== ENCOUNTER → 2017-09-17 | Outpatient (CLI) | payer OTHER | LOC: HYPER 06:59 | DX: T81.4XXD Infection following a procedure, subsequent encounter (principal); E11.622 Type 2 diabetes mellitus with other skin ulcer; L97.521 Non-pressure chronic ulcer of other part of left foot limited to breakdown of skin; E11.51 Type 2 diabetes mellitus with diabetic peripheral angiopathy without gangrene; E11.40 Type 2 diabetes mellitus with diabetic neuropathy, unspecified; E11.22 Type 2 diabetes mellitus with diabetic chronic kidney disease; N18.6 End stage renal disease; I25.10 Atherosclerotic heart disease of native coronary artery without angina pectoris; Z87.891 Personal history of nicotine dependence; Z79.4 Long term (current) use of insulin; Z79.84 Long term (current) use of oral hypoglycemic drugs; Z89.431 Acquired absence of right foot; Y83.8 Other surgical procedures as the cause of abnormal reaction of the patient, or of later complication, without mention of misadventure at the time of the procedure ==

== ENCOUNTER → 2017-09-19 | Outpatient (CLI) | payer OTHER | LOC: HYPER 06:39 | DX: T81.4XXD Infection following a procedure, subsequent encounter (principal); E11.622 Type 2 diabetes mellitus with other skin ulcer; L97.511 Non-pressure chronic ulcer of other part of right foot limited to breakdown of skin; E11.40 Type 2 diabetes mellitus with diabetic neuropathy, unspecified; E11.51 Type 2 diabetes mellitus with diabetic peripheral angiopathy without gangrene; E11.22 Type 2 diabetes mellitus with diabetic chronic kidney disease; N18.6 End stage renal disease; I25.10 Atherosclerotic heart disease of native coronary artery without angina pectoris; Z79.4 Long term (current) use of insulin; Z79.84 Long term (current) use of oral hypoglycemic drugs; Z87.891 Personal history of nicotine dependence; Y83.8 Other surgical procedures as the cause of abnormal reaction of the patient, or of later complication, without mention of misadventure at the time of the procedure ==

== ENCOUNTER → 2017-09-20 | Outpatient (CLI) | payer OTHER ==
[~2017-09-20] MED LIST changes: +FLEXERIL PO; +VASCEPA1 GM PO
== END ==
LOC: HYPER 09-18 06:45
DX: T81.4XXD Infection following a procedure, subsequent encounter (principal); E11.622 Type 2 diabetes mellitus with other skin ulcer; L97.511 Non-pressure chronic ulcer of other part of right foot limited to breakdown of skin; E11.51 Type 2 diabetes mellitus with diabetic peripheral angiopathy without gangrene; E11.40 Type 2 diabetes mellitus with diabetic neuropathy, unspecified; N18.6 End stage renal disease; E11.22 Type 2 diabetes mellitus with diabetic chronic kidney disease; I25.10 Atherosclerotic heart disease of native coronary artery without angina pectoris; Z89.431 Acquired absence of right foot; Z79.4 Long term (current) use of insulin; Z79.84 Long term (current) use of oral hypoglycemic drugs; Z87.891 Personal history of nicotine dependence; Y83.8 Other surgical procedures as the cause of abnormal reaction of the patient, or of later complication, without mention of misadventure at the time of the procedure

== ENCOUNTER → 2017-09-21 | Outpatient (CLI) | payer OTHER | LOC: HYPER 06:44 | DX: T81.4XXD Infection following a procedure, subsequent encounter (principal); E11.622 Type 2 diabetes mellitus with other skin ulcer; L97.511 Non-pressure chronic ulcer of other part of right foot limited to breakdown of skin; E11.51 Type 2 diabetes mellitus with diabetic peripheral angiopathy without gangrene; E11.42 Type 2 diabetes mellitus with diabetic polyneuropathy; E11.22 Type 2 diabetes mellitus with diabetic chronic kidney disease; N18.6 End stage renal disease; I25.10 Atherosclerotic heart disease of native coronary artery without angina pectoris; Z89.431 Acquired absence of right foot; Z87.891 Personal history of nicotine dependence; Z79.4 Long term (current) use of insulin; Z79.84 Long term (current) use of oral hypoglycemic drugs; Y83.8 Other surgical procedures as the cause of abnormal reaction of the patient, or of later complication, without mention of misadventure at the time of the procedure ==

== ENCOUNTER 2017-09-24 06:51 | Inpatient (IN) | payer OTHER ==
[~2017-09-24] VITALS: Ht 177.8 cm; Wt 119.3 kg
--- NOTE | ~2017-09-24 | EKG ---
[address] [place] [address] ELECTROCARDIOGRAM REPORT Name: ANNA MARIE RIOSVAHID HERNANDEZ Room #: 432-P ADM IN M.R.#: [id number] Admission: 09/24/17 Attend Phys: Freddy Castellanos MD Discharge: Date of : 62 Report #: [id number] THIS REPORT FOR: //name// [facility] Test Date: 2017-09-24 Test Time: 15:47:29 Pat Name: JENNY RIOS Department: Room: 432 P Gender: M Telephone Information Supervisor: Kathryn FRANCIS : 1960 Requested By: Freddy Castellanos Order Number: [id number] MD: Alec Granger Measurements Intervals [place] Rate: 83 P: 44 VA: 205 QRS: 16 QRSD: 97 T: 61 QT: 384 QTc: 452 Interpretive Statements Sinus rhythm Frequent premature ventricular complexes Compared to ECG 07/07/2017 17:12:07 Ventricular premature complex(es) now present Prolonged QT interval no longer present Electronically Signed On 09-25-2017 8:32:00 CDT by Alec Granger [email or web address] <ELECTRONICALLY SIGNED> By: Alec Granger MD, [facility] 09/25/17 0832 1547 1547 Alec Granger MD, [facility] /EPI
--- NOTE | ~2017-09-24 | HC ---
[facility] [place] [address] CONSULTATION Name: JENNY RIOS Room #: 432-P ADM IN M.R.#: [id number] Admission: 09/24/17 Attend Phys: Freddy Castellanos MD Discharge: Date of : 62 Report #: [id number] THIS REPORT FOR: //name// CC: Elmer Alfonsoni Rolonemmy DATE OF SERVICE: 09/24/2017 TYPE OF REPORT: Infectious diseases consultation. REASON FOR CONSULTATION: I was asked to evaluate concerning right foot wound infection. HISTORY OF PRESENT ILLNESS: The patient is a 57-year old with underlying history of diabetes, end-stage renal disease, peripheral vascular disease and cardiovascular disease; who developed gangrene of his right foot in the end of July of 2017. He underwent initial evaluation here at [facility] and was transferred to [facility] for revascularization performed by Dr. Aashish Ramos who performed a fem-pop distal bypass. Did reasonably well following this procedure. Has been on antibiotic therapy including vancomycin and ciprofloxacin throughout August. He finished his ciprofloxacin and has been on vancomycin up until this past week given dosing after dialysis. He has been followed by Dr. Ramos. No further Infectious Disease followup. He now [facility]. I was called by Dr. Gamino to evaluate the patient. He was admitted for further evaluation and treatment. He reports increased pain in his right foot and calf region over the past week. He had a followup ultrasound about 1 week ago, which showed no change in his occlusive disease. His graft was patent. The last 48 hours, he has noticed a marked increase in pain up to an 8 and discomfort. He has had a moderate amount of drainage. No fever or chills. Had some hypotension while on dialysis end of last week. Blood glucose levels have been increasing over the last 48 hours. Yesterday, he was fairly lethargic at home. Currently, reports his pain is being a persistent, throbbing in nature involving the foot and the calf and exacerbates with any pressure. Some improvement with narcotic for pain. Noticed no erythema up his calf or thigh. REVIEW OF SYSTEMS: Ten-point reviewed and negative other than what is described above. ALLERGIES: Alprazolam. MEDICATIONS: As noted on his MAY, most recently being on vancomycin. PAST MEDICAL HISTORY: [facility] [address] [place] [address] CONSULTATION Name: GABRIELJENNY Room #: 432-P [facility] IN M.R.#: [id number] Admission: 09/24/17 Attend Phys: Freddy Castellanos MD Discharge: Date of : 62 Report #: [id number] 1. Coronary artery disease with coronary bypass grafting. 2. Previous OK. 3. Hypertension. 4. Hyperlipidemia. 5. End-stage renal disease, on dialysis. 6. Peripheral vascular disease, status post left BKA. PAST SURGICAL HISTORY: He has had several amputations to the right foot, now status post transmetatarsal amputation followed by right fem-pop bypass. FAMILY HISTORY: Heart disease and diabetes. SOCIAL HISTORY: Nonsmoker. No significant alcohol intake. PHYSICAL EXAMINATION: VITAL SIGNS: He is afebrile and hemodynamically stable. GENERAL: He was sitting up in the exam table in moderate distress with pain in his right lower extremity. HEENT: Unremarkable. Mouth unremarkable. Eyes unremarkable. NECK: Supple. No thyromegaly or mass. No JVD. LUNGS: Clear with no consolidation or adventitial sounds. HEART: Regular, without murmur, gallop or rub. ABDOMEN: Soft and nontender. No hepatosplenomegaly or mass. LYMPHATIC: Unremarkable including neck, axillary and groin regions. SKIN: Unremarkable other than what is described in his extremities examination. EXTREMITIES: Left BKA was unremarkable. Right lower extremity had diminished pulses in his foot. He is status post transmetatarsal amputation. There is fairly large ulcer to the distal aspect of his forefoot and plantar region. There was some granulation tissue laterally. He had exposed bone, mid portion and medial foot. Serosanguineous drainage identified. Surrounding erythema. No fluctuance to the foot. No evidence of lymphangitis identified. He was tender throughout the foot and the calf region up to the knee. Pulses were adequate in the groin. Sensation was intact in the foot. NEUROLOGICAL: Otherwise unremarkable. PSYCHIATRIC: Normal. LABORATORY DATA: Blood glucose levels 140-180 range. IMPRESSION: 1. A 57-year-old diabetic with peripheral vascular disease, now with compromised right foot and lower extremity. I am suspecting vascular issue here in addition to secondary infection. 2. Diabetes. 3. End-stage renal disease, unchanged. 4. Peripheral vascular disease, status post peripheral bypass. [facility] [address] [place] [address] CONSULTATION Name: JENNY RIOSNE Room #: 432-P ADM IN M.R.#: [id number] Admission: 09/24/17 Attend Phys: Freddy Castellanos MD Discharge: Date of : 62 Report #: [id number] RECOMMENDATION: We will begin IV antibiotic therapy with vancomycin and Zosyn. Obtain cultures of the wound. Reimage his vasculature with ultrasound. May need to repeat his angiogram. I am concerned if no improvement, he will end up with a BKA. Following his ultrasound, we will decide whether we pursue another MRI scan. This was discussed with Dr. Gamino. Also discussed plan of care with the patient and his at the bedside. <ELECTRONICALLY SIGNED> By: Arnold Granados MD 09/24/17 1547 1332 1431 Arnold Granados MD /nt
--- NOTE | ~2017-09-24 | HC ---
[facility] [place] [address] CONSULTATION Name: JENNY RIOS Room #: 432-P ADM IN M.R.#: [id number] Admission: 09/24/17 Attend Phys: Freddy Castellanos MD Discharge: Date of : 62 Report #: [id number] THIS REPORT FOR: //name// CC: Elmer Castellanos REASON FOR PRESENTATION: Nonhealing right foot ulcer. REASON FOR CONSULTATION: End-stage renal disease. HISTORY OF PRESENT ILLNESS: This is a very well known patient to me. This is a 57-year-old who is maintained on dialysis every Sunday, and Sunday. He suffered from all sorts of complications related to longstanding diabetes, hypertension and noncompliance. This had included coronary artery disease, status post CABG, peripheral arterial disease, status post left BKA, recent toe amputation on the right side that did not heal very well because of his peripheral vascular disease and he ended up having a transmetatarsal amputation with a fem-pop bypass. He has been followed by Dr. Ramos, Wound Care. He is also being going through HBO. He reported some sharp pain on his right calf for the last few days radiating all the way to his foot. He denies fever or chills. No discharge. He was unable to put his boot as he described on his foot because of the pain. Case was discussed with Interventional Radiology, Dr. Ramos, ID, Wound Care. He had a large ulcer on the forefoot. There seems to be some black eschar tissue. There is some serosanguineous drainage and the patient was admitted to be further treated accordingly. He had some issues with his hyperkalemia yesterday. He is currently being treated with dialysis and he was evaluated while on dialysis this morning. He is going for an angiogram this afternoon. PAST MEDICAL HISTORY: 1. End-stage renal disease. 2. Coronary artery disease. 3. Peripheral arterial disease with multiple procedures and bypasses including left BKA, post fem-pop bypass on the right side, transmetatarsal amputation on the right side. 4. Osteomyelitis. 5. Hyperlipidemia. 6. Hypertension. 7. Diabetes mellitus. FAMILY HISTORY: Significant for a strong family history of diabetes mellitus and hypertension. ALLERGIES: ALPRAZOLAM. MEDICATIONS: [address] [address] CONSULTATION Name: JENNY RIOS MARY Room #: 432-P [facility] IN M.R.#: [id number] Admission: 09/24/17 Attend Phys: Freddy Castellanos MD Discharge: Date of : 62 Report #: [id number] 1. Plavix. 1. Atorvastatin. 2. Carvedilol. 3. Losartan. 4. Aspirin. 5. Gabapentin. 6. Sevelamer. 7. Lasix. SOCIAL HISTORY: Lives with his . No drug or alcohol abuse. He used to work for [employer]. REVIEW OF SYSTEMS: GENERAL: No fever or chills. CARDIOVASCULAR: No chest pain or palpitation. PULMONARY: No cough or hemoptysis. GASTROINTESTINAL: Occasional nausea, known to have gastroparesis. MUSCULOSKELETAL: As per the history of present illness. PHYSICAL EXAMINATION: GENERAL: He was alert and oriented. VITAL SIGNS: Blood pressure was 115/64. He is afebrile. HEAD AND NECK: No jugular venous distention. CHEST: No crackles. CARDIOVASCULAR: No rub. ABDOMEN: Soft and nontender. LOWER EXTREMITIES: Left BKA. Wound on the right forefoot was examined. He does have transmetatarsal amputation. There is an open ulcer on the forefoot. There seems to be eschar, serosanguineous discharge. There is a little bit of erythema. No purulent discharge. He also is having some issues with pain upon palpation of his right calf area. LABORATORY DATA: Laboratory values reviewed. White blood cell count was mildly elevated at 12.9. Sodium was 128, potassium was 6.3, BUN is 97 and creatinine is 12. ASSESSMENT, IMPRESSION AND PLAN: 1. End-stage renal disease. 2. Nonhealing right forefoot ulcer, status post transmetatarsal amputation. 3. Extensive peripheral arterial disease. 4. Coronary artery disease. 5. Diabetes mellitus. 6. Hyperkalemia. 7. The patient is currently receiving his usual hemodialysis on a low K bath. 8. Wound Care following. 9. Cultures obtained, ID adjusting antibiotic. [address] [address] CONSULTATION Name: JENNY RIOS Room #: 432-P [facility] IN M.R.#: [id number] Admission: 09/24/17 Attend Phys: Freddy Castellanos MD Discharge: Date of : 62 Report #: [id number] 10. Angiogram this afternoon. 11. After the finding of the angiogram, we will discuss future plans for his wound with the patient and the family members. 12. Resume blood pressure medication. 13. Resume blood sugar medications. 14. We will continue to follow along. <ELECTRONICALLY SIGNED> By: Macey Obrien MD 09/26/17 1005 0910 0954 Macey Obrien MD /nt
[~2017-09-24 06:51] MED LIST changes: -FLEXERIL PO; -VASCEPA1 GM PO
[2017-09-24 12:55] VITALS: BP 113/69
[2017-09-24] MEDS ORDERED: LASIX 80 MG TAB80 MG PO (13:30)
[2017-09-24] MEDS ORDERED: VASCEPA1 GM PO (13:41)
[2017-09-24] MEDS ORDERED: FLEXERIL PO (13:43)
[2017-09-24 14:04] LABS: BASOPHILS 0.7 % (0.0-2.0); EOSINOPHILS 3.5 % (0.0-3.0); HEMATOCRIT 27.8 % (42.0-52.0); HEMOGLOBIN 8.9 gm/dL (14.0-18.0); LYMPHOCYTES 10.3 % (24.0-44.0); MCH 25.4 pg (26.0-34.0); MCV 79.4 fL (80.0-100.0); PLATELET COUNT 410 thou/uL (150-400); POLYS 77.5 % (36.0-66.0); RDW 18.8 % (10.5-14.5); WBC 12.9 thou/uL (4.0-11.0)
[2017-09-24 14:14] LABS: ALBUMIN 2.7 g/dL (3.4-5.0); CALCIUM 9.1 mg/dL (8.5-10.1); CREATININE 10.9 mg/dL (0.7-1.3); TOTAL BILIRUBIN 0.3 mg/dL (<0.1-1.0); TOTAL PROTEIN 9.3 g/dL (6.4-8.2)
[2017-09-24 14:16] LABS: POTASSIUM 6.3 mmol/L (3.5-5.1)
[2017-09-24 14:35] LABS: ANISOCYTOSIS 1+; HYPOCHROMASIA 2+; PLATELET ESTIMATE INCREASED
[2017-09-24 14:48] LABS: APTT 30.3 Seconds (24.5-32.8); INR 1.1
[2017-09-24 14:52] LABS: MAGNESIUM 2.5 mg/dL (1.8-2.4); TROPONIN-I <0.06 ng/mL (<0.06)
[2017-09-24 16:00] VITALS: BP 112/53
[2017-09-24 19:27] VITALS: BP 122/66
[2017-09-24 23:01] LABS: CALCIUM 8.5 mg/dL (8.5-10.1); CREATININE 11.3 mg/dL (0.7-1.3)
[2017-09-24 23:03] LABS: POTASSIUM 6.3 mmol/L (3.5-5.1)
[2017-09-25 03:36] VITALS: BP 134/95
[2017-09-25 03:40] VITALS: BP 115/64
[2017-09-25 06:19] LABS: HEMATOCRIT 28.6 % (42.0-52.0); HEMOGLOBIN 8.9 gm/dL (14.0-18.0); MCH 25.1 pg (26.0-34.0); MCHC 31.1 g/dL (28.0-37.0); MCV 80.8 fL (80.0-100.0); RBC 3.54 mil/uL (4.50-6.00); RDW 18.6 % (10.5-14.5); WBC 11.2 thou/uL (4.0-11.0)
[2017-09-25 06:31] LABS: ALBUMIN 2.5 g/dL (3.4-5.0); CALCIUM 8.8 mg/dL (8.5-10.1); CREATININE 12.1 mg/dL (0.7-1.3); PHOSPHORUS 6.3 mg/dL (2.5-4.9)
[2017-09-25 06:34] LABS: POTASSIUM 6.3 mmol/L (3.5-5.1)
[2017-09-25 16:15] VITALS: BP 135/59
[2017-09-25 20:00] VITALS: BP 119/60
[2017-09-26 05:09] VITALS: BP 106/67
[2017-09-26 06:22] LABS: HEMATOCRIT 26.1 % (42.0-52.0); HEMOGLOBIN 8.3 gm/dL (14.0-18.0); MCH 25.5 pg (26.0-34.0); MCHC 31.7 g/dL (28.0-37.0); MCV 80.3 fL (80.0-100.0); RBC 3.25 mil/uL (4.50-6.00); RDW 18.7 % (10.5-14.5); WBC 10.9 thou/uL (4.0-11.0)
[2017-09-26 06:39] LABS: ALBUMIN 2.3 g/dL (3.4-5.0); CALCIUM 8.3 mg/dL (8.5-10.1); MAGNESIUM 2.3 mg/dL (1.8-2.4); PHOSPHORUS 5.4 mg/dL (2.5-4.9); POTASSIUM 5.5 mmol/L (3.5-5.1)
[2017-09-26 06:41] LABS: CREATININE 8.3 mg/dL (0.7-1.3)
[2017-09-26 08:15] VITALS: BP 125/66
[2017-09-26] MEDS ORDERED: AUGMENTIN 500-1 EACH PO (14:43)
[2017-09-26 14:52] VITALS: BP 125/66
[2017-09-26 16:52] VITALS: BP 125/66
== END 2017-09-26 16:59 | disposition home health service (06) | DRG 270 ==
LOC: HYPER 06:51 → 4E 12:26
PROVIDERS: Hospitalist; Specialist
PROC: 04CK3ZZ Extirpation of Matter from Right Femoral Artery, Percutaneous Approach (ICD-10-PCS; principal; 2017-09-25)
PROC: 04CM3ZZ Extirpation of Matter from Right Popliteal Artery, Percutaneous Approach (ICD-10-PCS; principal; 2017-09-25)
PROC: 5A1D70Z Performance of Urinary Filtration, Intermittent, Less than 6 Hours Per Day (ICD-10-PCS; principal; 2017-09-25)
PROC: 047K3ZZ Dilation of Right Femoral Artery, Percutaneous Approach (ICD-10-PCS; principal; 2017-09-25)
PROC: B41D1ZZ Fluoroscopy of Aorta and Bilateral Lower Extremity Arteries using Low Osmolar Contrast (ICD-10-PCS; principal; 2017-09-25)
PROC: 047M3ZZ Dilation of Right Popliteal Artery, Percutaneous Approach (ICD-10-PCS; principal; 2017-09-25)
DX: E11.52 Type 2 diabetes mellitus with diabetic peripheral angiopathy with gangrene (principal); N18.6 End stage renal disease; I12.0 Hypertensive chronic kidney disease with stage 5 chronic kidney disease or end stage renal disease; E46 Unspecified protein-calorie malnutrition; E78.5 Hyperlipidemia, unspecified; I25.10 Atherosclerotic heart disease of native coronary artery without angina pectoris; E87.5 Hyperkalemia; E11.621 Type 2 diabetes mellitus with foot ulcer; L97.519 Non-pressure chronic ulcer of other part of right foot with unspecified severity; E66.9 Obesity, unspecified; D64.9 Anemia, unspecified; E11.40 Type 2 diabetes mellitus with diabetic neuropathy, unspecified; E11.22 Type 2 diabetes mellitus with diabetic chronic kidney disease; E83.51 Hypocalcemia; Z95.1 Presence of aortocoronary bypass graft; I25.2 Old myocardial infarction; Z89.512 Acquired absence of left leg below knee; Z95.820 Peripheral vascular angioplasty status with implants and grafts; Z99.2 Dependence on renal dialysis; Z79.02 Long term (current) use of antithrombotics/antiplatelets; Z79.82 Long term (current) use of aspirin; Z79.899 Other long term (current) drug therapy; Z68.37 Body mass index [BMI] 37.0-37.9, adult; Z90.49 Acquired absence of other specified parts of digestive tract; Z89.431 Acquired absence of right foot; Z86.14 Personal history of Methicillin resistant Staphylococcus aureus infection; Z88.8 Allergy status to other drugs, medicaments and biological substances; Z82.49 Family history of ischemic heart disease and other diseases of the circulatory system; Z83.3 Family history of diabetes mellitus; K21.9 Gastro-esophageal reflux disease without esophagitis
CPT/HCPCS: 10183

== ENCOUNTER → 2017-09-26 | Outpatient (CLI) | payer OTHER ==
[~2017-09-26] MED LIST changes: +FLEXERIL PO; +VASCEPA1 GM PO
== END ==
LOC: HYPER 08:00
DX: T81.4XXD Infection following a procedure, subsequent encounter (principal); E11.621 Type 2 diabetes mellitus with foot ulcer; I70.235 Atherosclerosis of native arteries of right leg with ulceration of other part of foot; L97.512 Non-pressure chronic ulcer of other part of right foot with fat layer exposed; E11.40 Type 2 diabetes mellitus with diabetic neuropathy, unspecified; E11.51 Type 2 diabetes mellitus with diabetic peripheral angiopathy without gangrene; E11.22 Type 2 diabetes mellitus with diabetic chronic kidney disease; N18.9 Chronic kidney disease, unspecified; Z87.891 Personal history of nicotine dependence; Z89.431 Acquired absence of right foot; Z79.84 Long term (current) use of oral hypoglycemic drugs; Z79.4 Long term (current) use of insulin; Y83.8 Other surgical procedures as the cause of abnormal reaction of the patient, or of later complication, without mention of misadventure at the time of the procedure

== ENCOUNTER → 2017-09-27 | Outpatient (CLI) | payer OTHER | LOC: HYPER 09:06 | DX: T86.822 Skin graft (allograft) (autograft) infection (principal); E11.621 Type 2 diabetes mellitus with foot ulcer; I70.235 Atherosclerosis of native arteries of right leg with ulceration of other part of foot; L97.512 Non-pressure chronic ulcer of other part of right foot with fat layer exposed; E11.40 Type 2 diabetes mellitus with diabetic neuropathy, unspecified; E11.51 Type 2 diabetes mellitus with diabetic peripheral angiopathy without gangrene; E11.22 Type 2 diabetes mellitus with diabetic chronic kidney disease; N18.6 End stage renal disease; E11.42 Type 2 diabetes mellitus with diabetic polyneuropathy; I25.10 Atherosclerotic heart disease of native coronary artery without angina pectoris; Z87.891 Personal history of nicotine dependence; Z89.431 Acquired absence of right foot; Z79.4 Long term (current) use of insulin; Z79.84 Long term (current) use of oral hypoglycemic drugs; Y83.2 Surgical operation with anastomosis, bypass or graft as the cause of abnormal reaction of the patient, or of later complication, without mention of misadventure at the time of the procedure ==

== ENCOUNTER → 2017-10-01 | Outpatient (CLI) | payer OTHER | LOC: HYPER 06:48 → EDSTATUS 12:21 | DX: T81.4XXD Infection following a procedure, subsequent encounter (principal); E11.621 Type 2 diabetes mellitus with foot ulcer; I70.235 Atherosclerosis of native arteries of right leg with ulceration of other part of foot; L97.512 Non-pressure chronic ulcer of other part of right foot with fat layer exposed; E11.51 Type 2 diabetes mellitus with diabetic peripheral angiopathy without gangrene; E11.22 Type 2 diabetes mellitus with diabetic chronic kidney disease; N18.6 End stage renal disease; E11.40 Type 2 diabetes mellitus with diabetic neuropathy, unspecified; I25.10 Atherosclerotic heart disease of native coronary artery without angina pectoris; Z79.4 Long term (current) use of insulin; Z79.84 Long term (current) use of oral hypoglycemic drugs; Z87.891 Personal history of nicotine dependence; Z89.431 Acquired absence of right foot; Y83.8 Other surgical procedures as the cause of abnormal reaction of the patient, or of later complication, without mention of misadventure at the time of the procedure ==

== ENCOUNTER → 2017-10-02 | Outpatient (CLI) | payer OTHER | LOC: HYPER 06:59 | DX: T86.822 Skin graft (allograft) (autograft) infection (principal); E11.622 Type 2 diabetes mellitus with other skin ulcer; I70.235 Atherosclerosis of native arteries of right leg with ulceration of other part of foot; L97.512 Non-pressure chronic ulcer of other part of right foot with fat layer exposed; E11.51 Type 2 diabetes mellitus with diabetic peripheral angiopathy without gangrene; E11.22 Type 2 diabetes mellitus with diabetic chronic kidney disease; N18.6 End stage renal disease; I25.10 Atherosclerotic heart disease of native coronary artery without angina pectoris; Z87.891 Personal history of nicotine dependence; Z79.4 Long term (current) use of insulin; Z79.84 Long term (current) use of oral hypoglycemic drugs; Z89.431 Acquired absence of right foot; Y83.2 Surgical operation with anastomosis, bypass or graft as the cause of abnormal reaction of the patient, or of later complication, without mention of misadventure at the time of the procedure ==

== ENCOUNTER → 2017-10-03 | Outpatient (CLI) | payer OTHER | LOC: HYPER 06:44 | DX: T81.4XXD Infection following a procedure, subsequent encounter (principal); E11.621 Type 2 diabetes mellitus with foot ulcer; I70.235 Atherosclerosis of native arteries of right leg with ulceration of other part of foot; L97.512 Non-pressure chronic ulcer of other part of right foot with fat layer exposed; E11.22 Type 2 diabetes mellitus with diabetic chronic kidney disease; N18.6 End stage renal disease; E11.42 Type 2 diabetes mellitus with diabetic polyneuropathy; E11.51 Type 2 diabetes mellitus with diabetic peripheral angiopathy without gangrene; I25.10 Atherosclerotic heart disease of native coronary artery without angina pectoris; Z89.431 Acquired absence of right foot; Z79.4 Long term (current) use of insulin; Z79.84 Long term (current) use of oral hypoglycemic drugs; Z87.891 Personal history of nicotine dependence; Y83.8 Other surgical procedures as the cause of abnormal reaction of the patient, or of later complication, without mention of misadventure at the time of the procedure ==

== ENCOUNTER → 2017-10-04 | Outpatient (CLI) | payer OTHER | LOC: HYPER 07:04 | DX: T81.4XXD Infection following a procedure, subsequent encounter (principal); E11.622 Type 2 diabetes mellitus with other skin ulcer; I70.235 Atherosclerosis of native arteries of right leg with ulceration of other part of foot; L97.512 Non-pressure chronic ulcer of other part of right foot with fat layer exposed; E11.51 Type 2 diabetes mellitus with diabetic peripheral angiopathy without gangrene; E11.22 Type 2 diabetes mellitus with diabetic chronic kidney disease; N18.6 End stage renal disease; E11.42 Type 2 diabetes mellitus with diabetic polyneuropathy; I25.10 Atherosclerotic heart disease of native coronary artery without angina pectoris; Z89.431 Acquired absence of right foot; Z79.4 Long term (current) use of insulin; Z79.84 Long term (current) use of oral hypoglycemic drugs; Z87.891 Personal history of nicotine dependence; Y83.8 Other surgical procedures as the cause of abnormal reaction of the patient, or of later complication, without mention of misadventure at the time of the procedure ==

== ENCOUNTER → 2017-10-05 | Outpatient (CLI) | payer OTHER | LOC: HYPER 09-25 16:48 | DX: T81.4XXD Infection following a procedure, subsequent encounter (principal); E11.622 Type 2 diabetes mellitus with other skin ulcer; I70.235 Atherosclerosis of native arteries of right leg with ulceration of other part of foot; L97.512 Non-pressure chronic ulcer of other part of right foot with fat layer exposed; E11.51 Type 2 diabetes mellitus with diabetic peripheral angiopathy without gangrene; E11.22 Type 2 diabetes mellitus with diabetic chronic kidney disease; N18.6 End stage renal disease; E11.42 Type 2 diabetes mellitus with diabetic polyneuropathy; I25.10 Atherosclerotic heart disease of native coronary artery without angina pectoris; Z79.4 Long term (current) use of insulin; Z89.431 Acquired absence of right foot; Z79.84 Long term (current) use of oral hypoglycemic drugs; Z87.891 Personal history of nicotine dependence; Y83.8 Other surgical procedures as the cause of abnormal reaction of the patient, or of later complication, without mention of misadventure at the time of the procedure ==

== ENCOUNTER → 2017-10-08 | Outpatient (CLI) | payer OTHER | LOC: HYPER 09-14 12:27 | DX: T81.4XXD Infection following a procedure, subsequent encounter (principal); E11.621 Type 2 diabetes mellitus with foot ulcer; I70.235 Atherosclerosis of native arteries of right leg with ulceration of other part of foot; L97.512 Non-pressure chronic ulcer of other part of right foot with fat layer exposed; E11.51 Type 2 diabetes mellitus with diabetic peripheral angiopathy without gangrene; E11.22 Type 2 diabetes mellitus with diabetic chronic kidney disease; N18.6 End stage renal disease; E11.42 Type 2 diabetes mellitus with diabetic polyneuropathy; I25.10 Atherosclerotic heart disease of native coronary artery without angina pectoris; Z87.891 Personal history of nicotine dependence; Z89.431 Acquired absence of right foot; Z79.4 Long term (current) use of insulin; Z79.84 Long term (current) use of oral hypoglycemic drugs; Y83.8 Other surgical procedures as the cause of abnormal reaction of the patient, or of later complication, without mention of misadventure at the time of the procedure ==

== ENCOUNTER → 2017-10-09 | Outpatient (CLI) | payer OTHER | LOC: HYPER 06:31 | DX: T81.4XXD Infection following a procedure, subsequent encounter (principal); E11.621 Type 2 diabetes mellitus with foot ulcer; I70.235 Atherosclerosis of native arteries of right leg with ulceration of other part of foot; L97.512 Non-pressure chronic ulcer of other part of right foot with fat layer exposed; E11.51 Type 2 diabetes mellitus with diabetic peripheral angiopathy without gangrene; E11.22 Type 2 diabetes mellitus with diabetic chronic kidney disease; N18.6 End stage renal disease; E11.42 Type 2 diabetes mellitus with diabetic polyneuropathy; I25.10 Atherosclerotic heart disease of native coronary artery without angina pectoris; Z87.891 Personal history of nicotine dependence; Z79.84 Long term (current) use of oral hypoglycemic drugs; Z79.4 Long term (current) use of insulin; Y83.8 Other surgical procedures as the cause of abnormal reaction of the patient, or of later complication, without mention of misadventure at the time of the procedure ==

== ENCOUNTER → 2017-10-11 | Outpatient (CLI) | payer OTHER | LOC: HYPER 06:57 | DX: T81.4XXD Infection following a procedure, subsequent encounter (principal); E11.621 Type 2 diabetes mellitus with foot ulcer; I70.235 Atherosclerosis of native arteries of right leg with ulceration of other part of foot; L97.512 Non-pressure chronic ulcer of other part of right foot with fat layer exposed; E11.51 Type 2 diabetes mellitus with diabetic peripheral angiopathy without gangrene; E11.22 Type 2 diabetes mellitus with diabetic chronic kidney disease; N18.6 End stage renal disease; E11.42 Type 2 diabetes mellitus with diabetic polyneuropathy; I25.10 Atherosclerotic heart disease of native coronary artery without angina pectoris; Z89.431 Acquired absence of right foot; Z79.4 Long term (current) use of insulin; Z79.84 Long term (current) use of oral hypoglycemic drugs; Z87.891 Personal history of nicotine dependence; Y83.8 Other surgical procedures as the cause of abnormal reaction of the patient, or of later complication, without mention of misadventure at the time of the procedure ==

== ENCOUNTER → 2017-10-12 | Outpatient (CLI) | payer OTHER | LOC: HYPER 07:05 | DX: T81.4XXD Infection following a procedure, subsequent encounter (principal); E11.622 Type 2 diabetes mellitus with other skin ulcer; I70.235 Atherosclerosis of native arteries of right leg with ulceration of other part of foot; L97.512 Non-pressure chronic ulcer of other part of right foot with fat layer exposed; E11.51 Type 2 diabetes mellitus with diabetic peripheral angiopathy without gangrene; E11.22 Type 2 diabetes mellitus with diabetic chronic kidney disease; E11.42 Type 2 diabetes mellitus with diabetic polyneuropathy; N18.6 End stage renal disease; I25.10 Atherosclerotic heart disease of native coronary artery without angina pectoris; F17.210 Nicotine dependence, cigarettes, uncomplicated; Z89.431 Acquired absence of right foot; Z79.4 Long term (current) use of insulin; Z79.84 Long term (current) use of oral hypoglycemic drugs; Y83.8 Other surgical procedures as the cause of abnormal reaction of the patient, or of later complication, without mention of misadventure at the time of the procedure ==

== ENCOUNTER 2017-11-27 11:08 | Inpatient (IN) | payer OTHER ==
--- NOTE | ~2017-11-27 | HC ---
[facility] [place] [address] CONSULTATION Name: JENNY RIOS Room #: 236-P ADM IN M.R.#: [id number] Admission: 11/27/17 Attend Phys: Freddy Castellanos MD Discharge: Date of : 62 Report #: [id number] THIS REPORT FOR: //name// CC: Abel Diallo REASON FOR CONSULTATION: End-stage renal disease. REASON FOR PRESENTATION: Worsening right foot wound. HISTORY OF PRESENT ILLNESS: This is a very well-known patient to me with extensive past medical history including and not limited to end-stage renal disease, coronary artery disease, post CABG, peripheral vascular disease. He had been suffering from right foot wound requiring multiple procedures, debridement, vascular interventions and angioplasties. He is status post fem-pop bypass. He is status post left below-knee amputation. He visited with his Cardiology and his wound care team yesterday. The wound did not look good. Also, the fem-pop graft was found to be occluded and the patient was admitted for further evaluation and management. However, the patient reported fever and chills in the last few days. He was found to have leukocytosis. He also had some low white blood cell count. He was supposed to have right below-knee amputation; however, this has been canceled due to the intercurrent issues. I am being consulted to manage his end-stage renal disease. PAST MEDICAL HISTORY: 1. End-stage renal disease. 2. Peripheral vascular disease. 3. Diabetes mellitus. 4. Hypertension. 5. Recent fem-pop bypass. 6. Numerous angioplasties. 7. Previous left below-knee amputation. MEDICATIONS: 1. Cinacalcet. 2. Insulin. 3. Zofran. 4. Lyrica. 5. Renvela. 6. Atorvastatin. 7. Tramadol. 8. Plavix. 9. Aspirin. 10. Diazepam. 11. Losartan. ALLERGIES: ALPRAZOLAM. [facility] [address] [place] [address] CONSULTATION Name: JENNY RIOS Room #: 236-P [facility] IN M.R.#: [id number] Admission: 11/27/17 Attend Phys: Freddy Castellanos MD Discharge: Date of : 62 Report #: [id number] SOCIAL HISTORY: He lives with his . He used to work for [employer]. REVIEW OF SYSTEMS: GENERAL: Significant for fever and chills. CARDIOVASCULAR: No chest pain or palpitation. PULMONARY: No cough or hemoptysis. GASTROINTESTINAL: Nausea. MUSCULOSKELETAL: As per the history of present illness. FAMILY HISTORY: Significant for diabetes mellitus and hypertension. PHYSICAL EXAMINATION: VITAL SIGNS: Temperature 37.7, blood pressure 124/64. HEAD AND NECK: No jugular venous distention. CHEST: Decreased air entry bilaterally. CARDIOVASCULAR: No rub detected. ABDOMEN: Soft, nontender with no hepatosplenomegaly. LOWER EXTREMITIES: Left below-knee amputation. Dressing applied over the right foot. I did not expose the dressing. LABORATORY DATA: Reviewed. His hemoglobin is 6.4, white blood cell count 20.7. Sodium 131. ASSESSMENT, IMPRESSION AND PLAN: 1. End-stage renal disease. 2. Anemia. 3. Ongoing right foot wound with peripheral vascular disease and need for below-knee amputation. 4. Occluded fem-pop graft. 5. Coronary artery disease. 6. The patient is currently unstable to proceed with the surgery. I concur with the transfusion. 7. Fever workup including blood cultures to rule out sepsis. 8. Infectious Disease consultation. 9. Back off on the blood pressure medications given his soft blood pressure. 10. ENT to see for his ongoing ear issues post HBO. 11. Wound care. 12. If his condition deteriorates, we will transfer to the ICU. <ELECTRONICALLY SIGNED> By: Macey Obrien MD 11/30/17 0923 1001 1419 Macey Obrien MD /nt
--- NOTE | ~2017-11-27 | HC ---
[facility] [place] [address] CONSULTATION Name: GABRIELJENNY ABBOTTNE Room #: 236-P [facility] IN M.R.#: [id number] Admission: 11/27/17 Attend Phys: Freddy Castellanos MD Discharge: Date of : 62 Report #: [id number] THIS REPORT FOR: //name// CC: Abel Diallo DATE OF SERVICE: 11/27/2017 CHIEF COMPLAINT: Ischemic right lower extremity and possible sepsis. HISTORY OF PRESENT ILLNESS: This is a 57-year-old male patient with whom we are very familiar and followed closely for chronic ulceration of his right foot. He has undergone transmetatarsal amputation, multiple debridements. He has undergone revascularization surgically and has undergone hyperbaric oxygen therapy. He had been showing some improvement in his leg; however, he has developed pain in his leg, as well as fever and was noted to have significant arterial occlusion again of his vascular bypass on the right side. I have been asked to see him with regard to ongoing wound care. PAST MEDICAL HISTORY: Significant for history of diabetes mellitus with peripheral neuropathy, severe peripheral vascular disease with recent fem-pop bypass, recent right transmetatarsal amputation, previous left below knee amputation, end-stage renal disease, requiring dialysis, history of esophagitis. He is now admitted for further evaluation and treatment, antibiotic therapy, and likely below-knee amputation. CURRENT MEDICATIONS: Include carvedilol, cinacalcet, dexamethasone, diphenhydramine, docusate, insulin, loperamide, ofloxacin, Zofran, Lyrica, Renvela, sertraline, atorvastatin, gabapentin, pramipexole, Lasix, cyclobenzaprine, losartan, aspirin, diazepam, tramadol, pantoprazole, Plavix. ALLERGIES: ALPRAZOLAM. SOCIAL HISTORY: Noncontributory, is , accompanied by his . REVIEW OF SYSTEMS: Limited, as the patient is a little bit confused at present. It should be noted the patient did make some references to suicidal ideation to nurses, all did not make that known to me. PHYSICAL EXAMINATION: VITAL SIGNS: Include temperature 37.4, pulse rate of 87, respiratory rate of 16, blood pressure 132/76. GENERAL: This is a chronically ill-appearing male patient who appears to be in moderate discomfort. HEENT: Head normocephalic. Nose and throat are clear. NECK: Supple. [facility] [address] [place] [address] CONSULTATION Name: JENNY RIOSNE Room #: 236-P [facility] IN M.R.#: [id number] Admission: 11/27/17 Attend Phys: Freddy Castellanos MD Discharge: Date of : 62 Report #: [id number] LUNGS: Diminished. HEART: Regular rhythm. ABDOMEN: Soft. Dressings are intact in the lower extremities. They are left in place at this time. CLINICAL IMPRESSION: 1. Diabetic foot ulceration. 2. Severe peripheral vascular disease with apparent occlusion of recent fem-pop graft. 3. Diabetes mellitus, peripheral neuropathy. 4. End-stage renal disease, requiring dialysis. RECOMMENDATIONS: At this point in time, the patient will be seen by orthopedics, likely with plan for below-knee amputation. We will review with interventional radiology all vascular options to maintain adequate healing to below-knee site. We will follow up with postoperative wound care as needed. I appreciate being asked to see him again in consultation. <ELECTRONICALLY SIGNED> By: Jonah Gamino MD 11/30/17 0739 2205 0040 Jonah Gamino MD /nt
--- NOTE | ~2017-11-27 | EKG ---
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 : 1960 Requested By: Kyler Brown Order Number: [id number] MD: Gabriel Chavez Measurements Intervals [place] Rate: 70 P: 44 IA: 189 QRS: 14 QRSD: 104 T: 30 QT: 500 QTc: 540 Interpretive Statements Sinus rhythm Nonspecific T abnormalities, anterior leads Compared to ECG 11/28/2017 07:02:27 T-wave abnormality now present Early repolarization no longer present Possible ischemia no longer present Electronically Signed On 11-30-2017 23:08:30 CDT by Gabriel Chavez [email or web address] <ELECTRONICALLY SIGNED> By: Gabriel Chavez MD 11/30/17 5762 0 0 Gabriel Chavez MD /RAD
--- NOTE | ~2017-11-27 | 2DMMODE ---
[facility] [place] [address] 2 D/M-MODE ECHOCARDIOGRAM Name: GABRIELJENNY MARY Room #: 236-P ADM IN M.R.#: [id number] Admission: 11/27/17 Attend Phys: Freddy Castellanos MD Discharge: Date of : 62 Date of Service: 11/30/17 1448 Report #: [id number] THIS REPORT FOR: //name// APPROVED REPORT Study performed: 11/30/2017 13:56:30 EXAM: Comprehensive 2D, Doppler, and color-flow Echocardiogram Patient Location: ICU Room #: 236 Status: routine BSA: 2.06 HR: 77 bpm BP: 155/88 mmHg Rhythm: NSR Other Information Study Quality: Adequate Indications Diabetes Dyspnea CAD Hypertension/HDD 2D Dimensions IVSd: 9.20 (7-11mm) LVOT Diam: 24.17 (18-24mm) LVDd: 60.67 mm PWd: 9.20 (7-11mm) Ascending Ao: 35.40 (22-36mm) LVDs: 48.47 (25-40mm) Aortic Root: 35.04 mm IVC: 23.00 mm Volumes Left Atrial Volume (Systole) Single Plane 4CH: 82.19 mL Single Plane 2CH: 84.33 mL LA ESV Index: 45.00 mL/m2 Aortic Valve AoV Peak Luis Alfredo.: 1.37 m/s AO Peak Gr.: 7.47 mmHg LVOT Max P.19 mmHg LVOT Max V: 0.89 m/s LALA Vmax: 3.00 cm2 Mitral Valve E/A Ratio: 1.4 [facility] [address] [place] [address] 2 D/M-MODE ECHOCARDIOGRAM Name: JENNY RIOS Room #: 236-P ADM IN .R.#: [id number] Admission: 11/27/17 Attend Phys: Freddy Castellanos MD Discharge: Date of : 62 Date of Service: 11/30/17 1448 Report #: [id number] MV Decel. Time: 208.53 ms MV E Max Luis Alfredo.: 1.31 m/s MV A Luis Alfredo.: 0.93 m/s MV PHT: 60.47 ms IVRT: 101.50 ms Pulmonary Valve PV Peak Luis Alfredo.: 0.82 m/s PV Peak Gr.: 2.71 mmHg Tricuspid Valve TR Peak Luis Alfredo.: 3.38 m/s TR Peak Gr.: 45.66 mmHg PA Pressure: 56.00 mmHg Left Ventricle There is mild global hypokinesis of the left ventricle. There is normal left ventricular wall thickness. Left ventricular ejection fraction is mildly decreased. LVEF is 45%. Right Ventricle Right ventricle is not well visualized. Right ventricular systolic function is grossly normal. Atria Left atrium is dilated. Right atrium is dilated. Aortic Valve The aortic valve is normal in structure. Aortic valve is calcified. No aortic regurgitation is present. There is no aortic valvular stenosis. Mitral Valve The mitral valve is normal in structure. Mild to moderate mitral regurgitation. No evidence of mitral valve stenosis. Tricuspid Valve The tricuspid valve is normal in structure. There is mild to moderate tricuspid regurgitation. Estimated PAP 56 mmHg. There is moderate pulmonary hypertension. Pulmonic Valve The pulmonary valve is normal in structure. Trace pulmonic regurgitation. Great Vessels The aortic root is normal in size. IVC is dilated and collapses [facility] [address] [place] [address] 2 D/M-MODE ECHOCARDIOGRAM Name: GABRIELJENNY MARY Room #: 236-P ADM IN M.R.#: [id number] Admission: 11/27/17 Attend Phys: Freddy Castellanos MD Discharge: Date of : 62 Date of Service: 11/30/17 1448 Report #: [id number] <50% with inspiration. Pericardium There is no pericardial effusion. <Conclusion> Left ventricular ejection fraction is mildly decreased. Right ventricle is not well visualized. Left atrium is dilated. Aortic valve is calcified. There is no aortic valvular stenosis. Mild to moderate mitral regurgitation. There is mild to moderate tricuspid regurgitation. Estimated PAP 56 mmHg. There is moderate pulmonary hypertension. There is no pericardial effusion. <ELECTRONICALLY SIGNED> By: Kyler Brown MD 11/30/17 1448 1448 144 Kyler Brown MD /[facility]
--- NOTE | ~2017-11-27 | EEG ---
[facility] [place] [address] ELECTROENCEPHALOGRAM Name: JENNY RIOS Room #: 236-P ADM IN M.R.#: [id number] Admission: 11/27/17 Attend Phys: Freddy Castellanos MD Discharge: Date of : 62 Report #: [id number] THIS REPORT FOR: //name// CC: Abel Castellanos DATE OF SERVICE: 12/04/2017 This patient is being evaluated for hypoxic encephalopathy. His EEG was done for comparison with prior EEG. EEG was done by placing the electrodes by standard 10-20 system of electrode placement. Both referential and sequential montages were used for recording. Background activity in this patient's EEG is about 8 Hz and 30 microvolt. Photic stimulation was unremarkable. No active epileptiform activity was noticed. IMPRESSION: This patient's EEG is intermixed with theta range slowing on both sides. That is a nonspecific abnormality, which can occur with encephalopathy, effect of psychotropic medication. This EEG is not any worse than the last EEG, but does not show any active epileptiform activity. <ELECTRONICALLY SIGNED> By: Mark Magana MD 12/10/17 0948 1636 1709 Mark Magana MD /nt
--- NOTE | ~2017-11-27 | HC ---
[facility] [place] [address] CONSULTATION Name: JENNY RIOS Room #: 236-P [facility] IN M.R.#: [id number] Admission: 11/27/17 Attend Phys: Freddy Castellanos MD Discharge: Date of : 62 Report #: [id number] THIS REPORT FOR: //name// CC: Abel Castellanos DATE OF SERVICE: 12/11/2017 This patient's EEG was done to compare with the last EEG. EEG was done by placing the electrode by standard 10-20 system of electrode placement. Both referential and sequential montages were used for recording. Moderate amount of artifact is present, making part of the EEG uninterpretable. Background activity is poorly formed. It appeared to be about 4-5 Hz and 15 microvolt. Photic stimulation is unremarkable. No active epileptiform activity was noticed. IMPRESSION: This is an abnormal electroencephalogram consistent with encephalopathy. There has been no improvement in the patient's electroencephalogram over a period of time. In fact, the electroencephalogram looks more disorganized and poorly formed than the last electroencephalogram. However, well defined cortical activity is still present. No active epileptiform activity was noticed. Thank you very much for this referral. By: 1610 2231 Mark Magana MD /nt
--- NOTE | ~2017-11-27 | HC ---
[facility] [address] CONSULTATION Name: JENNY RIOS Room #: 236-P [facility] IN M.R.#: [id number] Admission: 11/27/17 Attend Phys: Freddy Castellanos MD Discharge: Date of : 62 Report #: [id number] THIS REPORT FOR: //name// CC: Abel Castellanos DATE OF SERVICE: 11/30/2017 HISTORY OF PRESENT ILLNESS: The patient is a 57-year-old male previously known to me with right foot osteomyelitis. He underwent a right below knee amputation on 11/29/2017 and simultaneously had ENT examination under anesthesia of his right ear, as he had some bloody otorrhea. He had had prior PE tubes placed to be able to tolerate his p.o. His course was complicated by a cardiac arrest with PEA and there is note of 15 minutes of chest compression with 3 rounds of epinephrine, question of hypoxic/anoxic injury. He is currently in the intensive care unit. He is undergoing dialysis and then the hope is to try to extubate him. We are seeing him in rehabilitation medicine consultation. PAST MEDICAL HISTORY: Includes end-stage renal disease, coronary artery bypass grafting, peripheral vascular disease, prior left below knee amputation, diabetes mellitus, CHF. MEDICATIONS: Please see the full medication listing. SOCIAL HISTORY: Noted to live with his . No other further information available. REVIEW OF SYSTEMS: Unobtainable. PHYSICAL EXAMINATION: GENERAL: He is in the intensive care unit. He appears sedated. He is mechanically ventilated. VITAL SIGNS: Temperature 96, pulse 71, respirations 17, blood pressure 171/94. He is currently undergoing dialysis. EXTREMITIES: He has the old left below knee amputation in his right. New below knee amputation is dressed with the dressing in place. ASSESSMENT: A 57-year-old male with the following problem list: 1. Right below knee amputation on 11/29/2017. 2. Cardiac arrest with PEA question of anoxic injury. 3. End-stage renal disease, on hemodialysis. 4. Examination under anesthesia, right ear. 5. History of peripheral vascular disease. [address] [address] CONSULTATION Name: JENNY RIOS Room #: 236-P [facility] IN M.R.#: [id number] Admission: 11/27/17 Attend Phys: Freddy Castellanos MD Discharge: Date of : 62 Report #: [id number] 6. Prior left below knee amputation. 7. Diabetes mellitus. 8. Congestive heart failure. PLAN: He is currently critically in Intensive Care Unit. We will be glad to follow along with you regarding his rehab therapy needs as he further medically stabilizes. Thank you for asking us to assist in this patient's care. <ELECTRONICALLY SIGNED> By: José Miguel Jordan MD 12/11/17 0959 0939 1248 José Miguel Jordan MD /nt
--- NOTE | ~2017-11-27 | PATH ---
[facility] [address] [place] [address] PATHOLOGY RPT PROCEDURE Name: GABRIELASHISHVAHID HERNANDEZ Room #: 236-P ADM IN M.R.#: [id number] Admission: 11/27/17 Date of : 62 Discharge: Report #: [id number] Path Case #: [id number] [facility] Accession Number: [id number] . 01 Material submitted: . RIGHT BELOW THE KNEE AMPUTATION . 01 Clinician provided ICD-10: I73.9 . 01 Clinical history: . PVD . 02 Diagnosis: Leg, right, below the knee amputation: - Extensive gangrenous necrosis along with fibrinoid degeneration with acute inflammation extending into deep subcutaneous tissue. - Vascular bundles showing complete luminal occlusion due to atherosclerosis as well as thrombi in a few. - Surgical margin of skin viable and unremarkable. - Bone surgical margins grossly viable. . (IUV:mml; 12/03/17) QLM/12/03/2017 . 02 Electronically signed: . Betty Dior MD, Pathologist NPI- [id number] . 01 Gross description: . The specimen is received fresh in a red biohazard bag labeled "Ashish AldridgeTali below the knee amputation" and consists of a right below the knee amputation specimen measuring 17.1 cm heel to forefoot, 32.9 cm heel to skin resection margin, with protruding fibula (4.8 cm) and protruding tibia (0.9 cm). The toes are missing post status forefoot amputation. The skin is brown with mummification/necrosis at the distal foot and dorsal distal foot. The remainder of the skin displays no lesions. Both the skin and bone margins appear grossly viable. Sectioning the vasculature reveals marked calcifications less than 1.0 cm from the proximal resection margin. Lens Silverer sections are submitted as follows: . A1: Skin/soft tissue margin A2: Mummification/necrosis, skin A3: Proximal most vascular bundles A4: Anterior and posterior vascular bundles A3 and A4 will be submitted following decalcification. [address] [address] PATHOLOGY RPT PROCEDURE Name: ASHISH ALDRIDGE MARY Room #: 236-P [facility] IN M.R.#: [id number] Admission: 11/27/17 Date of : 62 Discharge: Report #: [id number] Path Case #: [id number] ([place]; 11/30/2017) SYU/SYU . 02 Pathologist provided ICD-10: I70.261 . 02 CPT . 512674, 225116 Specimen Comment: A courtesy copy of this report has been sent to Specimen Comment: [phone], . Specimen Comment: Report sent to and Specimen Comment: A duplicate report has been generated due to demographic updates. Performed at: [address] [facility], [place], [place] [id number] MD Luis De eJsus MD Phone: [phone] Performed at: [address] [facility] [id number] MD Betty Dior MD Phone: [phone]
--- NOTE | ~2017-11-27 | EEG ---
[facility] [place] [address] ELECTROENCEPHALOGRAM Name: JENNY RIOS Room #: 236-P [facility] IN M.R.#: [id number] Admission: 11/27/17 Attend Phys: Freddy Castellanos MD Discharge: Date of : 62 Report #: [id number] THIS REPORT FOR: //name// CC: Abel Castellanos This patient is being evaluated for hypoxic encephalopathy. EEG was done by placing the electrodes by standard 10-20 system of electrode placement. Both referential and sequential montages were used for recording. Background activity in this patient's EEG is about 5-6 Hz and 30 microvolt. It is a symmetrical activity. It is poorly formed. In the occipital area, the patient does appear to be showing some sharper activity, which may represent seizure disorder. Photic stimulation is unremarkable. IMPRESSION: This is an abnormal electroencephalogram, which will be consistent with a diagnosis of encephalopathy. However, this patient's electroencephalogram still demonstrates well-defined cortical activity. Some seizure activity arising from the occipital area appeared to be present. Thank you very much for this referral. <ELECTRONICALLY SIGNED> By: Mark Magana MD 12/04/17 1700 1352 1516 Mark Magana MD /nt
--- NOTE | ~2017-11-27 | O ---
[facility] [place] [address] OPERATIVE REPORT Name: JENNY RIOS Room #: 236-P [facility] IN M.R.#: [id number] Admission: 11/27/17 Attend Phys: Freddy Castellanos MD Discharge: Date of : 62 Report #: [id number] THIS REPORT FOR: //name// CC: Abel Diallo DATE OF SERVICE: 11/29/2017 PREOPERATIVE DIAGNOSIS: Right foot osteomyelitis. POSTOPERATIVE DIAGNOSIS: Right foot osteomyelitis. PROCEDURE: Right vkpfx-svk-csal amputation. SURGEON: Mikel Hall MD MARKETING SALES MANAGER: Adela Andrews. ANESTHESIA: General. ESTIMATED BLOOD LOSS: 10 mL. DRAINS: One Hemovac drain was placed to the leg. COMPLICATIONS: There were no complications. DESCRIPTION OF PROCEDURE: The patient brought to the operating room, where he was placed under general anesthesia. Once under adequate general anesthesia, his right lower extremity was prepped and draped in sterile manner. The extremity was elevated, exsanguinated, tourniquet placed to 300 mmHg. A fishmouth incision about the middle third of the leg was then made. This was dissected down through the soft tissue to the tibia and the fibula sharply with the 10 blade. Exposure was made of the tibia with a Walker elevator and of the fibula as well with the Walker elevator. The peroneal vasculature as well as the posterior tibial vasculature were then clamped with hemostats and subsequently transected with tenotomy scissors. The tibia was then transected with an oscillating saw and beveled anteriorly with the oscillating saw. The fibula was transected as well proximal to this in an oblique fashion. Once complete, the wound was irrigated copiously and the vasculature was ligated with 0 silk suture. The posterior tibial nerve was incised proximally in the musculature. The wound was irrigated once again copiously and closed over a Hemovac drain with #1 Vicryl in the deep fascia, 2-0 Vicryl in subcutaneous tissues and tico were used for the skin. The wound was dressed with Xeroform, 4 x 4s, and sterile soft compressive dressing was placed. Tourniquet was let down at [address] [place] [address] [address] [place] [address] OPERATIVE REPORT Name: JENNY RIOS MARY Room #: 236-P [facility] IN [facility].#: [id number] Admission: 11/27/17 Attend Phys: Freddy Castellanos MD Discharge: Date of : 62 Report #: [id number] minutes. There were no complications from the procedure. The patient tolerated the procedure well and went to the recovery room without incident. <ELECTRONICALLY SIGNED> By: Mikel Hall MD 11/30/17 1244 1407 1423 Mikel Hall MD /nt
--- NOTE | ~2017-11-27 | EKG ---
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1960 Requested By: Diamond Linder Order Number: [id number] MD: Gabriel Chavez Measurements Intervals Wedron Rate: 85 P: 49 CA: 178 QRS: 29 QRSD: 103 T: 97 QT: 445 QTc: 530 Interpretive Statements Sinus rhythm Repol abnrm suggests ischemia, anterior leads Compared to ECG 09/24/2017 15:47:29 Early repolarization now present Ventricular premature complex(es) no longer present Electronically Signed On 11-28-2017 16:24:17 CDT by Gabriel Chavez [email or web address] <ELECTRONICALLY SIGNED> By: Gabriel Chavez MD 11/28/17 1624 0702 0702 Gabriel Chavez MD /EPI
--- NOTE | ~2017-11-27 | EEG ---
[facility] [place] [address] ELECTROENCEPHALOGRAM Name: JENNY RIOS Room #: 236-P [facility] IN M.R.#: [id number] Admission: 11/27/17 Attend Phys: Freddy Castellanos MD Discharge: Date of : 62 Report #: [id number] THIS REPORT FOR: //name// CC: Abel Castellanos HISTORY: The patient is a 57-year-old male status post code, on Keppra. The patient has a prior history of seizures. An EEG is requested for further evaluation. DESCRIPTION: The patient is not on sedation. A posterior dominant rhythm is not seen. There is no change of state during the recording. Intermittent low amplitude 2-3 Hz activity is seen over the posterior head regions. No epileptiform activity is noted. Photic stimulations was not activating. During the recording, the patient had to be sedated with lorazepam because of head movement. IMPRESSION: This record is consistent with severe diffuse cerebral dysfunction. There is no evidence of seizure activity on this recording. <ELECTRONICALLY SIGNED> By: Gerri Heath DO 12/09/17 1503 1347 1401 Gerri Heath DO /nt
--- NOTE | ~2017-11-27 | O ---
[address] [address] OPERATIVE REPORT Name: JENNY RIOS Room #: 236-P ADM IN M.R.#: [id number] Admission: 11/27/17 Attend Phys: Freddy Castellanos MD Discharge: Date of : 62 Report #: [id number] THIS REPORT FOR: //name// CC: Arnold Grubbs MD [facility] Elmer Snow MD DATE OF SERVICE: 12/14/2017 SURGEON: Aiden Baez MD SYSTEMS AUDITOR: Alex Dockery MD PREOPERATIVE DIAGNOSES: 1. Respiratory failure. 2. Protein-calorie malnutrition. 3. Diabetes mellitus. 3. Anoxic encephalopathy. 5. End-stage renal disease with hemodialysis dependence. POSTOPERATIVE DIAGNOSES: 1. Respiratory failure. 2. Protein-calorie malnutrition. 3. Diabetes mellitus. 3. Anoxic encephalopathy. 5. End-stage renal disease with hemodialysis dependence. PROCEDURE: 1. Tracheostomy - size 7 XLT cuffed, nonfenestrated. 2. EGD with PEG tube placement (20-Fench pull-type). ANESTHESIA: General endotracheal anesthesia and local anesthetic. ESTIMATED BLOOD LOSS: 5 mL SPECIMEN: None. COMPLICATIONS: None appreciated. INDICATIONS FOR PROCEDURE: This is a 57-year-old male patient who has multiple [address] [address] OPERATIVE REPORT Name: JENNY RIOS Room #: 236-P [facility] IN [facility].#: [id number] Admission: 11/27/17 Attend Phys: Freddy Castellanos MD Discharge: Date of : 62 Report #: [id number] medical issues and who previously underwent a left qxqau-mon-ygom amputation for a gangrenous left foot. Over the past several months, the patient has required a right lower extremity surgery including a transmetatarsal amputation and debridement. He had difficulty with chronic nonhealing wounds and ultimately required a right fxjsw-wax-crsi amputation. This was undertaken on 11/29/2017. Since that time, the patient has not been able to be weaned from the mechanical ventilator. He also has protein-calorie malnutrition and has been receiving tube feeds through an orogastric tube. He presents today for tracheostomy and PEG tube placement. DESCRIPTION OF PROCEDURE IN DETAIL: After the risks, benefits, and expectations of the operation were discussed in detail with the patient and his family, informed consent was obtained. The patient was identified in the intensive care unit and he was transferred to the operating room in the supine position. The patient was then given general anesthesia through his already existing endotracheal tube. A time-out was performed to identify the correct patient and procedure. EGD with PEG tube placement was undertaken first. A bite block was placed by anesthesia. The EGD scope was advanced in the patient's oropharynx and passed down the esophagus and into the stomach. The stomach was insufflated with carbon dioxide. The room lights were then dimmed and there was transillumination through the stomach and anterior abdominal wall. An appropriate area was chosen for placement of the tube to the lower body of the stomach. The skin was then prepped and draped in standard sterile fashion. Local anesthetic was infiltrated into the skin and subcutaneous tissue. A small transverse incision was made. The Cook needle with sheath was then advanced directly into the stomach under direct visualization. The needle was withdrawn and the looped type guidewire was advanced through the sheath. The guidewire was grasped with the snare through the scope. The guidewire was then withdrawn through the patient's oropharynx. The gastrostomy tube was then connected to the guidewire at the patient's mouth. The guidewire was used to advance the gastrostomy tube by applying firm traction on the guidewire from the abdominal side. The inner flange of the tube was seen endoscopically after passing the scope into the patient's stomach once again. The outer flange and clamp were placed as well as the fitting for the tube. A sterile dressing was applied. Tracheostomy was undertaken next. The patient was placed in the sniffer position. Both arms were tucked. The neck was prepped and draped in the standard sterile fashion. Local anesthetic was infiltrated into the skin and subcutaneous tissue, two fingerbreadths above the sternal notch. A small transverse collar incision was made. Electrocautery was used to dissect through the subcutaneous tissue, through the platysma, and down to the strap muscles. The strap muscles were then divided in the midline longitudinally. Dissection was then carried through the underlying thyroid to the second tracheal ring. The trachea was scored both above and below the tracheal ring with [address] [address] OPERATIVE REPORT Name: JENNY RIOS MARY Room #: 236-P [facility] IN M.R.#: [id number] Admission: 11/27/17 Attend Phys: Freddy Castellanos MD Discharge: Date of : 62 Report #: [id number] electrocautery. The cuff was then taken down and the trachea was incised with a #11 blade scalpel. The anterior portion of the second tracheal ring was then excised. Trach collections analyst was placed. The endotracheal tube was slowly withdrawn by anesthesia until it was above the tracheotomy. The size 7 XLT tracheostomy was then advanced into the trachea. The obturator was removed and the inner cannula was placed. The ventilator was connected to the tracheostomy after inflating the cuff appropriately. End-tidal CO2 was obtained. Surgicel was then packed into the subcutaneous tissue around the tracheostomy. 2-0 nylon sutures x 4 were placed to secure the wings of the tracheostomy to the patient's skin. A foam tracheostomy strap was then placed. The patient tolerated both procedures well. He was returned to the intensive care unit in stable condition. <ELECTRONICALLY SIGNED> By: Aiden Baez MD, FACS 12/16/17 1017 1108 1202 Aiden Baez MD, FACS /nt
[2017-11-27 13:28] VITALS: BP 149/78
[2017-11-27 13:48] LABS: HEMOGLOBIN 6.8 gm/dL (14.0-18.0); WBC 16.9 thou/uL (4.0-11.0)
[2017-11-27 13:49] LABS: HEMATOCRIT 21.6 % (42.0-52.0); MCH 22.6 pg (26.0-34.0); MCHC 31.4 g/dL (28.0-37.0); RBC 2.99 mil/uL (4.50-6.00); RDW 20.6 % (10.5-14.5)
[2017-11-27 14:06] LABS: CALCIUM 8.7 mg/dL (8.5-10.1); CREATININE 4.9 mg/dL (0.7-1.3); POTASSIUM 3.7 mmol/L (3.5-5.1)
[2017-11-27 14:52] VITALS: BP 141/69
[2017-11-27] MEDS ORDERED: SENSIPAR 30 MG30 M1 PO (16:32)
[2017-11-27] MEDS ORDERED: MAXIDEX5 ML OPHTHALMIC (16:35)
[2017-11-27] MEDS ORDERED: BENADRYL25 MG PO (16:36)
[2017-11-27] MEDS ORDERED: COLACE100 MG PO (16:38)
[2017-11-27] MEDS ORDERED: HUMALOG100 UNIT/1 SUBQ (16:38)
[2017-11-27] MEDS ORDERED: TRESIBA FL200 UNIT/1 SUBQ (16:39)
[2017-11-27] MEDS ORDERED: LOPERAMIDE 2 MG2 M1 PO (16:40)
[2017-11-27] MEDS ORDERED: OCUFLOX5 ML OPHTHALMIC (16:43)
[2017-11-27] MEDS ORDERED: ZOFRAN ODT8 MG PO (16:44)
[2017-11-27] MEDS ORDERED: MIRAPEX0.125 MG PO (16:45)
[2017-11-27] MEDS ORDERED: LYRICA 75 MG CA75 MG PO (16:46)
[2017-11-27 18:17] VITALS: BP 152/76
[2017-11-27 18:20] VITALS: BP 148/105
[2017-11-27 20:01] VITALS: BP 146/81
[2017-11-28] VITALS (8 sets, daily range): BP systolic 118–143; BP diastolic 58–80
[2017-11-28 06:41] LABS: MCH 22.9 pg (26.0-34.0); MCV 72.4 fL (80.0-100.0)
[2017-11-28 06:43] LABS: HEMATOCRIT 20.2 % (42.0-52.0); MCHC 31.6 g/dL (28.0-37.0); PLATELET COUNT 486 thou/uL (150-400); RBC 2.79 mil/uL (4.50-6.00); RDW 20.5 % (10.5-14.5); WBC 20.7 thou/uL (4.0-11.0)
[2017-11-28 06:47] LABS: HEMOGLOBIN 6.4 gm/dL (14.0-18.0)
[2017-11-28 06:48] LABS: CALCIUM 8.1 mg/dL (8.5-10.1); POTASSIUM 3.7 mmol/L (3.5-5.1)
[2017-11-28 06:49] LABS: CREATININE 7.1 mg/dL (0.7-1.3)
[2017-11-28 08:11] LABS: ABSOLUTE NEUTROPHILS 18.8 thou/uL (1.4-8.2); ANISOCYTOSIS 2+; HYPOCHROMASIA 2+; MICROCYTES 1+
[2017-11-28 16:01] LABS: % SATURATION 11 % (20-39); IRON 11 ug/dL (65-175); TIBC 96 ug/dL (250-450)
[2017-11-29] VITALS (15 sets, daily range): BP systolic 92–173; BP diastolic 56–90
[2017-11-29 05:06] LABS: ALBUMIN 2.1 g/dL (3.4-5.0); CALCIUM 7.2 mg/dL (8.5-10.1); MAGNESIUM 2.2 mg/dL (1.8-2.4); PHOSPHORUS 3.4 mg/dL (2.5-4.9); POTASSIUM 4.3 mmol/L (3.5-5.1)
[2017-11-29 05:23] LABS: HEMATOCRIT 24.2 % (42.0-52.0); HEMOGLOBIN 7.6 gm/dL (14.0-18.0); MCH 23.4 pg (26.0-34.0); MCHC 31.3 g/dL (28.0-37.0); MCV 74.7 fL (80.0-100.0); PLATELET COUNT 494 thou/uL (150-400); RBC 3.24 mil/uL (4.50-6.00); WBC 21.9 thou/uL (4.0-11.0)
[2017-11-29 05:25] LABS: CREATININE 8.6 mg/dL (0.7-1.3)
[2017-11-29 06:40] LABS: ABSOLUTE NEUTROPHILS 18.2 thou/uL (1.4-8.2); HYPOCHROMASIA 2+; POLYCHROMASIA 1+
[2017-11-29 15:08] LABS: HCO3 23.6 mmol/L (22.0-26.0); PCO2 44.1 mmHg (35.0-45.0); PO2 568.7 mmHg (80.0-100.0); pH 7.347 (7.360-7.450); sO2 99.9 % (92.0-98.0)
[2017-11-29 15:15] LABS: HEMATOCRIT 24.7 % (42.0-52.0); MCH 24.5 pg (26.0-34.0); MCHC 32.2 g/dL (28.0-37.0); PLATELET COUNT 464 thou/uL (150-400); RBC 3.25 mil/uL (4.50-6.00); RDW 21.1 % (10.5-14.5); WBC 18.9 thou/uL (4.0-11.0)
[2017-11-29 15:25] LABS: CALCIUM 8.4 mg/dL (8.5-10.1)
[2017-11-29 15:31] LABS: TOTAL BILIRUBIN 0.7 mg/dL (<0.1-1.0)
[2017-11-29 15:34] LABS: ABSOLUTE NEUTROPHILS 16.3 thou/uL (1.4-8.2); ANISOCYTOSIS 1+; HYPOCHROMASIA 1+; PLATELET ESTIMATE INCREASED
[2017-11-29 21:55] LABS: HEMATOCRIT 25.1 % (42.0-52.0); HEMOGLOBIN 8.1 gm/dL (14.0-18.0)
[2017-11-30] VITALS (15 sets, daily range): BP systolic 144–171; BP diastolic 92–110
[2017-11-30 05:30] LABS: HEMATOCRIT 26.5 % (42.0-52.0); HEMOGLOBIN 8.3 gm/dL (14.0-18.0); POTASSIUM 4.1 mmol/L (3.5-5.1)
[2017-11-30 07:38] LABS: HCO3 21.2 mmol/L (22.0-26.0); PCO2 34.2 mmHg (35.0-45.0); sO2 99.3 % (92.0-98.0)
[2017-11-30 09:35] LABS: TROPONIN-I 0.07 ng/mL (<0.06)
[2017-11-30 12:38] LABS: HEMATOCRIT 27.6 % (42.0-52.0)
[2017-12-01 05:56] LABS: HEMATOCRIT 28.2 % (42.0-52.0); HEMOGLOBIN 9.1 gm/dL (14.0-18.0); MCH 24.8 pg (26.0-34.0); MCHC 32.4 g/dL (28.0-37.0); MCV 76.8 fL (80.0-100.0); RBC 3.67 mil/uL (4.50-6.00); RDW 21.4 % (10.5-14.5)
[2017-12-01 06:08] LABS: CALCIUM 8.3 mg/dL (8.5-10.1); CREATININE 5.3 mg/dL (0.7-1.3); POTASSIUM 4.5 mmol/L (3.5-5.1)
[2017-12-01 09:40] LABS: BE(vivo) 1.7 mmol/L (-2 to +3); HCO3 25.9 mmol/L (22.0-26.0); PCO2 39.3 mmHg (35.0-45.0); PO2 162.6 mmHg (80.0-100.0); pH 7.437 (7.360-7.450); sO2 99.1 % (92.0-98.0)
[2017-12-01 16:02] VITALS: BP 161/82
[2017-12-02] VITALS (10 sets, daily range): BP systolic 148–188; BP diastolic 59–99
[2017-12-02 05:04] LABS: HEMATOCRIT 29.7 % (42.0-52.0); HEMOGLOBIN 9.3 gm/dL (14.0-18.0); MCH 24.5 pg (26.0-34.0); MCHC 31.4 g/dL (28.0-37.0); RBC 3.81 mil/uL (4.50-6.00); RDW 21.7 % (10.5-14.5); WBC 18.4 thou/uL (4.0-11.0)
[2017-12-03] VITALS (17 sets, daily range): BP systolic 97–189; BP diastolic 66–105
[2017-12-03 05:59] LABS: HEMATOCRIT 29.7 % (42.0-52.0); HEMOGLOBIN 9.4 gm/dL (14.0-18.0); MCH 24.8 pg (26.0-34.0); MCHC 31.6 g/dL (28.0-37.0); MCV 78.3 fL (80.0-100.0); RBC 3.79 mil/uL (4.50-6.00); RDW 21.7 % (10.5-14.5); WBC 16.1 thou/uL (4.0-11.0)
[2017-12-03 06:10] LABS: ALBUMIN 1.9 g/dL (3.4-5.0); CALCIUM 8.9 mg/dL (8.5-10.1); MAGNESIUM 2.4 mg/dL (1.8-2.4); PHOSPHORUS 5.4 mg/dL (2.5-4.9); POTASSIUM 4.1 mmol/L (3.5-5.1)
[2017-12-03 06:36] LABS: CREATININE 7.5 mg/dL (0.7-1.3)
[2017-12-04] VITALS (31 sets, daily range): BP systolic 113–196; BP diastolic 55–96
[2017-12-04 06:22] LABS: HEMATOCRIT 32.4 % (42.0-52.0); HEMOGLOBIN 10.1 gm/dL (14.0-18.0); MCH 24.4 pg (26.0-34.0); MCV 78.7 fL (80.0-100.0); RBC 4.12 mil/uL (4.50-6.00); RDW 22.5 % (10.5-14.5); WBC 16.5 thou/uL (4.0-11.0)
[2017-12-04 06:29] LABS: CALCIUM 9.4 mg/dL (8.5-10.1); PHOSPHORUS 4.7 mg/dL (2.5-4.9)
[2017-12-04 06:32] LABS: CREATININE 5.7 mg/dL (0.7-1.3)
[2017-12-05] VITALS (63 sets, daily range): BP systolic 116–190; BP diastolic 47–88
[2017-12-05 04:52] LABS: HCO3 20.9 mmol/L (22.0-26.0); PCO2 33.3 mmHg (35.0-45.0); pH 7.416 (7.360-7.450); sO2 98.6 % (92.0-98.0)
[2017-12-05 05:45] LABS: ALBUMIN 1.9 g/dL (3.4-5.0); PHOSPHORUS 4.6 mg/dL (2.5-4.9); POTASSIUM 4.3 mmol/L (3.5-5.1)
[2017-12-05 05:47] LABS: CREATININE 7.6 mg/dL (0.7-1.3)
[2017-12-05 05:52] LABS: HEMOGLOBIN 10.1 gm/dL (14.0-18.0); MCH 24.7 pg (26.0-34.0); MCHC 31.4 g/dL (28.0-37.0); MCV 78.7 fL (80.0-100.0); RBC 4.07 mil/uL (4.50-6.00); RDW 22.9 % (10.5-14.5); WBC 14.4 thou/uL (4.0-11.0)
[2017-12-06] VITALS (39 sets, daily range): BP systolic 126–193; BP diastolic 68–104
[2017-12-06 05:10] LABS: BE(vivo) 4.8 mmol/L (-2 to +3); HCO3 30.3 mmol/L (22.0-26.0); PCO2 49.1 mmHg (35.0-45.0); PO2 107.4 mmHg (80.0-100.0); pH 7.408 (7.360-7.450); sO2 97.9 % (92.0-98.0)
[2017-12-06 05:13] LABS: HEMATOCRIT 32.2 % (42.0-52.0); HEMOGLOBIN 10.4 gm/dL (14.0-18.0); MCH 25.3 pg (26.0-34.0); MCHC 32.4 g/dL (28.0-37.0); MCV 78.1 fL (80.0-100.0); PLATELET COUNT 596 thou/uL (150-400); RBC 4.13 mil/uL (4.50-6.00); RDW 23.1 % (10.5-14.5); WBC 16.8 thou/uL (4.0-11.0)
[2017-12-06 05:21] LABS: CALCIUM 9.6 mg/dL (8.5-10.1)
[2017-12-06 05:23] LABS: CREATININE 5.8 mg/dL (0.7-1.3)
[2017-12-06 06:01] LABS: ABSOLUTE NEUTROPHILS 12.6 thou/uL (1.4-8.2); METAMYELOCYTES 5 %; MYELOCYTES 1 %
[2017-12-06 06:02] LABS: ANISOCYTOSIS 2+
[2017-12-06 06:03] LABS: MACROCYTES 1+; POLYCHROMASIA SLIGHT
[2017-12-07] VITALS (30 sets, daily range): BP systolic 118–197; BP diastolic 79–112
[2017-12-07 05:13] LABS: ALBUMIN 1.9 g/dL (3.4-5.0); CALCIUM 9.2 mg/dL (8.5-10.1); CREATININE 7.9 mg/dL (0.7-1.3); PHOSPHORUS 4.4 mg/dL (2.5-4.9)
[2017-12-08] VITALS (37 sets, daily range): BP systolic 102–174; BP diastolic 61–97
[2017-12-08 05:12] LABS: BE(vivo) 5.7 mmol/L (-2 to +3); HCO3 30.5 mmol/L (22.0-26.0); PCO2 45.2 mmHg (35.0-45.0); PO2 129.1 mmHg (80.0-100.0); pH 7.447 (7.360-7.450)
[2017-12-08 05:13] LABS: sO2 98.7 % (92.0-98.0)
[2017-12-08 05:43] LABS: HEMATOCRIT 32.3 % (42.0-52.0); HEMOGLOBIN 10.4 gm/dL (14.0-18.0); MCH 24.8 pg (26.0-34.0); MCV 77.3 fL (80.0-100.0); RBC 4.18 mil/uL (4.50-6.00); RDW 23.5 % (10.5-14.5); WBC 19.3 thou/uL (4.0-11.0)
[2017-12-08 05:54] LABS: ALBUMIN 2.2 g/dL (3.4-5.0); CALCIUM 10.2 mg/dL (8.5-10.1); PHOSPHORUS 5.2 mg/dL (2.5-4.9)
[2017-12-08 05:56] LABS: CREATININE 5.9 mg/dL (0.7-1.3)
[2017-12-09] VITALS (25 sets, daily range): BP systolic 102–154; BP diastolic 46–103
[2017-12-09 06:05] LABS: CALCIUM 9.3 mg/dL (8.5-10.1); PHOSPHORUS 6.2 mg/dL (2.5-4.9); POTASSIUM 3.9 mmol/L (3.5-5.1)
[2017-12-10] VITALS (25 sets, daily range): BP systolic 107–155; BP diastolic 61–108
[2017-12-10 05:10] LABS: HEMATOCRIT 30.9 % (42.0-52.0); HEMOGLOBIN 9.6 gm/dL (14.0-18.0); MCH 23.9 pg (26.0-34.0); MCV 76.9 fL (80.0-100.0); PLATELET COUNT 584 thou/uL (150-400); RBC 4.01 mil/uL (4.50-6.00); RDW 23.2 % (10.5-14.5); WBC 16.7 thou/uL (4.0-11.0)
[2017-12-10 05:20] LABS: ALBUMIN 1.9 g/dL (3.4-5.0); CALCIUM 9.1 mg/dL (8.5-10.1); CREATININE 9.6 mg/dL (0.7-1.3); POTASSIUM 4.2 mmol/L (3.5-5.1)
[2017-12-10 09:09] LABS: ABSOLUTE NEUTROPHILS 13.9 thou/uL (1.4-8.2); ANISOCYTOSIS 1+; PLATELET ESTIMATE INCREASED
[2017-12-11] VITALS (24 sets, daily range): BP systolic 103–150; BP diastolic 54–95
[2017-12-11 05:13] LABS: CALCIUM 9.1 mg/dL (8.5-10.1); CREATININE 6.7 mg/dL (0.7-1.3); PHOSPHORUS 5.5 mg/dL (2.5-4.9); POTASSIUM 4.2 mmol/L (3.5-5.1)
[2017-12-12] VITALS (38 sets, daily range): BP systolic 81–148; BP diastolic 47–84
[2017-12-12 05:50] LABS: HEMATOCRIT 31.6 % (42.0-52.0); MCH 24.3 pg (26.0-34.0); MCHC 31.6 g/dL (28.0-37.0); MCV 77.1 fL (80.0-100.0); PLATELET COUNT 608 thou/uL (150-400); RDW 23.1 % (10.5-14.5); WBC 19.3 thou/uL (4.0-11.0)
[2017-12-12 06:00] LABS: ALBUMIN 2.1 g/dL (3.4-5.0); CALCIUM 9.7 mg/dL (8.5-10.1); CREATININE 6.2 mg/dL (0.7-1.3); PHOSPHORUS 5.7 mg/dL (2.5-4.9); POTASSIUM 4.5 mmol/L (3.5-5.1)
[2017-12-12 07:15] LABS: ABSOLUTE NEUTROPHILS 16.6 thou/uL (1.4-8.2); METAMYELOCYTES 5 %
[2017-12-12 07:16] LABS: ANISOCYTOSIS 2+
[2017-12-13] VITALS (15 sets, daily range): BP systolic 103–138; BP diastolic 66–87
[2017-12-13 05:28] LABS: HEMATOCRIT 30.9 % (42.0-52.0); HEMOGLOBIN 9.8 gm/dL (14.0-18.0); MCH 24.3 pg (26.0-34.0); MCHC 31.6 g/dL (28.0-37.0); MCV 76.9 fL (80.0-100.0); PLATELET COUNT 563 thou/uL (150-400); RBC 4.02 mil/uL (4.50-6.00); RDW 23.3 % (10.5-14.5); WBC 22.1 thou/uL (4.0-11.0)
[2017-12-13 05:54] LABS: ABSOLUTE NEUTROPHILS 18.8 thou/uL (1.4-8.2)
[2017-12-13 05:55] LABS: ANISOCYTOSIS 2+
[2017-12-13 11:25] LABS: INR 1.1; PROTIME 11.3 Seconds (9.3-11.4)
[2017-12-14] VITALS (67 sets, daily range): BP systolic 110–166; BP diastolic 72–98
[2017-12-14] MEDS ORDERED: LORAZEPAM 0.50.5 M1 PO (04:30)
[2017-12-14] MEDS ORDERED: BUSPIRONE HCL10 MG PO (04:31)
[2017-12-14] MEDS ORDERED: CARDIZEM LA300 M1 PO ×2 (04:34→04:35)
[2017-12-14 05:29] LABS: BE(vivo) 1.1 mmol/L (-2 to +3); PCO2 36.7 mmHg (35.0-45.0); PO2 116.3 mmHg (80.0-100.0); pH 7.451 (7.360-7.450); sO2 98.4 % (92.0-98.0)
[2017-12-14 05:55] LABS: HEMATOCRIT 28.8 % (42.0-52.0); HEMOGLOBIN 9.3 gm/dL (14.0-18.0); MCH 24.8 pg (26.0-34.0); MCHC 32.3 g/dL (28.0-37.0); MCV 76.8 fL (80.0-100.0); RBC 3.76 mil/uL (4.50-6.00); RDW 23.3 % (10.5-14.5); WBC 20.5 thou/uL (4.0-11.0)
[2017-12-14 06:13] LABS: ALBUMIN 1.9 g/dL (3.4-5.0); CALCIUM 9.5 mg/dL (8.5-10.1); PHOSPHORUS 6.6 mg/dL (2.5-4.9); POTASSIUM 5.2 mmol/L (3.5-5.1)
[2017-12-15] VITALS (54 sets, daily range): BP systolic 86–149; BP diastolic 57–111
[2017-12-15 05:06] LABS: HEMATOCRIT 27.8 % (42.0-52.0); HEMOGLOBIN 8.9 gm/dL (14.0-18.0); MCH 24.4 pg (26.0-34.0); MCHC 31.9 g/dL (28.0-37.0); MCV 76.4 fL (80.0-100.0); PLATELET COUNT 546 thou/uL (150-400); RBC 3.64 mil/uL (4.50-6.00); RDW 23.3 % (10.5-14.5)
[2017-12-15 05:18] LABS: ALBUMIN 1.9 g/dL (3.4-5.0); CALCIUM 9.2 mg/dL (8.5-10.1); CREATININE 6.3 mg/dL (0.7-1.3); PHOSPHORUS 5.6 mg/dL (2.5-4.9); POTASSIUM 5.2 mmol/L (3.5-5.1)
[2017-12-15 05:43] LABS: ABSOLUTE NEUTROPHILS 17.7 thou/uL (1.4-8.2)
[2017-12-15 05:45] LABS: ANISOCYTOSIS 2+
[2017-12-15 10:30] LABS: INR 1.2; PROTIME 11.8 Seconds (9.3-11.4)
[2017-12-16] VITALS (33 sets, daily range): BP systolic 67–154; BP diastolic 40–89
[2017-12-16 05:18] LABS: HEMATOCRIT 22.8 % (42.0-52.0); HEMOGLOBIN 7.3 gm/dL (14.0-18.0); MCH 24.4 pg (26.0-34.0); MCHC 31.9 g/dL (28.0-37.0); MCV 76.5 fL (80.0-100.0); RBC 2.98 mil/uL (4.50-6.00); RDW 22.6 % (10.5-14.5)
[2017-12-16 05:32] LABS: CALCIUM 9.9 mg/dL (8.5-10.1); CREATININE 8.9 mg/dL (0.7-1.3); POTASSIUM 5.4 mmol/L (3.5-5.1)
[2017-12-16 18:12] LABS: HEMATOCRIT 24.5 % (42.0-52.0); HEMOGLOBIN 7.9 gm/dL (14.0-18.0)
[2017-12-17] VITALS (23 sets, daily range): BP systolic 119–178; BP diastolic 58–92
[2017-12-17 06:06] LABS: HEMATOCRIT 24.4 % (42.0-52.0); HEMOGLOBIN 7.8 gm/dL (14.0-18.0); MCH 24.9 pg (26.0-34.0); MCHC 31.8 g/dL (28.0-37.0); MCV 78.3 fL (80.0-100.0); RBC 3.12 mil/uL (4.50-6.00); RDW 22.1 % (10.5-14.5); WBC 21.8 thou/uL (4.0-11.0)
[2017-12-17 06:32] LABS: ALBUMIN 1.8 g/dL (3.4-5.0); CALCIUM 9.6 mg/dL (8.5-10.1); PHOSPHORUS 9.2 mg/dL (2.5-4.9)
[2017-12-17 06:35] LABS: CREATININE 10.9 mg/dL (0.7-1.3)
[2017-12-17 06:37] LABS: POTASSIUM 6.1 mmol/L (3.5-5.1)
[2017-12-18] VITALS (19 sets, daily range): BP systolic 113–182; BP diastolic 48–79
[2017-12-18 05:36] LABS: HEMOGLOBIN 7.3 gm/dL (14.0-18.0); MCH 25.8 pg (26.0-34.0); MCHC 33.1 g/dL (28.0-37.0); MCV 78.1 fL (80.0-100.0); RBC 2.82 mil/uL (4.50-6.00); RDW 21.9 % (10.5-14.5); WBC 17.3 thou/uL (4.0-11.0)
[2017-12-19] VITALS (58 sets, daily range): BP systolic 99–180; BP diastolic 43–158
[2017-12-19 05:12] LABS: ALBUMIN 1.7 g/dL (3.4-5.0); CALCIUM 8.9 mg/dL (8.5-10.1); PHOSPHORUS 8.3 mg/dL (2.5-4.9); POTASSIUM 4.6 mmol/L (3.5-5.1)
[2017-12-19 05:16] LABS: CREATININE 8.6 mg/dL (0.7-1.3)
[2017-12-19 08:13] LABS: HEMATOCRIT 21.7 % (42.0-52.0); MCH 25.2 pg (26.0-34.0); MCHC 32.2 g/dL (28.0-37.0); MCV 78.1 fL (80.0-100.0); RBC 2.77 mil/uL (4.50-6.00); RDW 22.7 % (10.5-14.5); WBC 16.3 thou/uL (4.0-11.0)
[2017-12-19 09:41] LABS: BE(vivo) 0.4 mmol/L (-2 to +3); HCO3 24.6 mmol/L (22.0-26.0); PCO2 37.1 mmHg (35.0-45.0); PO2 119.8 mmHg (80.0-100.0); pH 7.439 (7.360-7.450); sO2 98.5 % (92.0-98.0)
[2017-12-20] VITALS (89 sets, daily range): BP systolic 69–159; BP diastolic 30–94
[2017-12-20 04:03] LABS: ABSOLUTE NEUTROPHILS 12.1 thou/uL (1.4-8.2); RDW 22.1 % (10.5-14.5)
[2017-12-20 04:05] LABS: EOSINOPHILS 6.1 % (0.0-3.0); HEMATOCRIT 21.5 % (42.0-52.0); LYMPHOCYTES 6.8 % (24.0-44.0); MCH 25.8 pg (26.0-34.0); MCHC 32.7 g/dL (28.0-37.0); MONOCYTES 5.9 % (1.0-8.0); PLATELET COUNT 455 thou/uL (150-400); POLYS 80.2 % (36.0-66.0); RBC 2.73 mil/uL (4.50-6.00); WBC 15.2 thou/uL (4.0-11.0)
[2017-12-20 04:14] LABS: ALBUMIN 1.7 g/dL (3.4-5.0); CALCIUM 8.8 mg/dL (8.5-10.1); POTASSIUM 3.8 mmol/L (3.5-5.1)
[2017-12-20 04:18] LABS: CREATININE 5.3 mg/dL (0.7-1.3)
[2017-12-21] VITALS (35 sets, daily range): BP systolic 90–149; BP diastolic 40–88
[2017-12-21 05:52] LABS: HEMATOCRIT 26.6 % (42.0-52.0); HEMOGLOBIN 8.4 gm/dL (14.0-18.0); MCH 25.4 pg (26.0-34.0); MCHC 31.6 g/dL (28.0-37.0); MCV 80.3 fL (80.0-100.0); RBC 3.31 mil/uL (4.50-6.00); RDW 21.1 % (10.5-14.5); WBC 17.1 thou/uL (4.0-11.0)
[2017-12-21 05:57] LABS: ALBUMIN 1.9 g/dL (3.4-5.0); CALCIUM 9.1 mg/dL (8.5-10.1); PHOSPHORUS 5.1 mg/dL (2.5-4.9); POTASSIUM 4.3 mmol/L (3.5-5.1)
[2017-12-22] VITALS (25 sets, daily range): BP systolic 97–137; BP diastolic 46–74
[2017-12-22 05:42] LABS: HEMATOCRIT 23.5 % (42.0-52.0); HEMOGLOBIN 7.7 gm/dL (14.0-18.0); MCH 26.5 pg (26.0-34.0); MCHC 32.9 g/dL (28.0-37.0); MCV 80.7 fL (80.0-100.0); RBC 2.91 mil/uL (4.50-6.00); WBC 16.3 thou/uL (4.0-11.0)
[2017-12-22 06:11] LABS: ALBUMIN 1.7 g/dL (3.4-5.0); CREATININE 4.7 mg/dL (0.7-1.3); PHOSPHORUS 4.8 mg/dL (2.5-4.9); POTASSIUM 4.1 mmol/L (3.5-5.1)
[2017-12-23] VITALS (26 sets, daily range): BP systolic 86–133; BP diastolic 46–79
[2017-12-24] VITALS (29 sets, daily range): BP systolic 95–147; BP diastolic 47–97
[2017-12-24 06:39] LABS: HEMATOCRIT 25.1 % (42.0-52.0); HEMOGLOBIN 7.9 gm/dL (14.0-18.0); MCH 25.6 pg (26.0-34.0); MCHC 31.6 g/dL (28.0-37.0); RBC 3.1 mil/uL (4.50-6.00); RDW 20.9 % (10.5-14.5); WBC 16.6 thou/uL (4.0-11.0)
[2017-12-24 06:59] LABS: ALBUMIN 1.7 g/dL (3.4-5.0); CALCIUM 9.1 mg/dL (8.5-10.1); PHOSPHORUS 5.8 mg/dL (2.5-4.9); POTASSIUM 4.3 mmol/L (3.5-5.1)
[2017-12-24 07:00] LABS: CREATININE 6.4 mg/dL (0.7-1.3)
[2017-12-24] MEDS ORDERED: CARVEDILOL12.5 MG PO (13:20)
[2017-12-24] MEDS ORDERED: COZAAR 50 MG TA50 MG PO (13:20)
[2017-12-24] MEDS ORDERED: PROCRIT20000 UNIT SUBQ (13:20)
== END 2017-12-24 17:38 | DRG 3 ==
LOC: 2N 11:08 → ICU 12:53 → 2N 12:53 → DELTRNSPT 15:49 → ENTRNSPT 15:49 → 2N 11-28 08:24 → ICU 11-29 15:07
PROVIDERS: Anesthesiology; Hospitalist; Internal Medicine; Internal Medicine Cardiovascular Disease; Internal Medicine Gastroenterology; Internal Medicine Nephrology; Internal Medicine Pulmonary Disease; Nurse Practitioner; Nurse Practitioner Adult Health; Orthopaedic Surgery Foot and Ankle Surgery; Pediatrics; Specialist; Surgery
PROC: 30233N1 Transfusion of Nonautologous Red Blood Cells into Peripheral Vein, Percutaneous Approach (ICD-10-PCS; 2017-11-27)
PROC: 0Y6F0ZZ Detachment at Right Knee Region, Open Approach (ICD-10-PCS; 2017-11-27)
PROC: 02HV33Z Insertion of Infusion Device into Superior Vena Cava, Percutaneous Approach (ICD-10-PCS; principal; 2017-11-28)
PROC: 0JH63XZ Insertion of Tunneled Vascular Access Device into Chest Subcutaneous Tissue and Fascia, Percutaneous Approach (ICD-10-PCS; principal; 2017-11-28)
PROC: B548ZZA Ultrasonography of Superior Vena Cava, Guidance (ICD-10-PCS; principal; 2017-11-28)
PROC: B518YZA Fluoroscopy of Superior Vena Cava using Other Contrast, Guidance (ICD-10-PCS; principal; 2017-11-28)
PROC: 5A1D70Z Performance of Urinary Filtration, Intermittent, Less than 6 Hours Per Day (ICD-10-PCS; 2017-11-29)
PROC: 0B110F4 Bypass Trachea to Cutaneous with Tracheostomy Device, Open Approach (ICD-10-PCS; 2017-11-29)
PROC: 5A1955Z Respiratory Ventilation, Greater than 96 Consecutive Hours (ICD-10-PCS; 2017-11-29)
PROC: 5A1D70Z Performance of Urinary Filtration, Intermittent, Less than 6 Hours Per Day (ICD-10-PCS; 2017-11-30)
PROC: 0B9G8ZX Drainage of Left Upper Lung Lobe, Via Natural or Artificial Opening Endoscopic, Diagnostic (ICD-10-PCS; 2017-12-01)
PROC: 5A1D70Z Performance of Urinary Filtration, Intermittent, Less than 6 Hours Per Day (ICD-10-PCS; 2017-12-01)
PROC: 5A1D70Z Performance of Urinary Filtration, Intermittent, Less than 6 Hours Per Day (ICD-10-PCS; 2017-12-03)
PROC: 5A1D70Z Performance of Urinary Filtration, Intermittent, Less than 6 Hours Per Day (ICD-10-PCS; 2017-12-05)
PROC: 5A1D70Z Performance of Urinary Filtration, Intermittent, Less than 6 Hours Per Day (ICD-10-PCS; 2017-12-07)
PROC: 5A1D70Z Performance of Urinary Filtration, Intermittent, Less than 6 Hours Per Day (ICD-10-PCS; 2017-12-10)
PROC: 5A1D70Z Performance of Urinary Filtration, Intermittent, Less than 6 Hours Per Day (ICD-10-PCS; 2017-12-11)
PROC: 5A1D70Z Performance of Urinary Filtration, Intermittent, Less than 6 Hours Per Day (ICD-10-PCS; 2017-12-12)
PROC: 0DH68UZ Insertion of Feeding Device into Stomach, Via Natural or Artificial Opening Endoscopic (ICD-10-PCS; 2017-12-14)
PROC: 5A1D70Z Performance of Urinary Filtration, Intermittent, Less than 6 Hours Per Day (ICD-10-PCS; 2017-12-14)
PROC: 5A1D70Z Performance of Urinary Filtration, Intermittent, Less than 6 Hours Per Day (ICD-10-PCS; 2017-12-15)
PROC: 5A1D70Z Performance of Urinary Filtration, Intermittent, Less than 6 Hours Per Day (ICD-10-PCS; 2017-12-17)
PROC: 5A1D70Z Performance of Urinary Filtration, Intermittent, Less than 6 Hours Per Day (ICD-10-PCS; 2017-12-19)
PROC: 0DJ08ZZ Inspection of Upper Intestinal Tract, Via Natural or Artificial Opening Endoscopic (ICD-10-PCS; 2017-12-20)
PROC: 5A1D70Z Performance of Urinary Filtration, Intermittent, Less than 6 Hours Per Day (ICD-10-PCS; 2017-12-20)
PROC: 5A1D70Z Performance of Urinary Filtration, Intermittent, Less than 6 Hours Per Day (ICD-10-PCS; 2017-12-21)
PROC: 5A1D70Z Performance of Urinary Filtration, Intermittent, Less than 6 Hours Per Day (ICD-10-PCS; 2017-12-24)
DX: A40.9 Streptococcal sepsis, unspecified (principal); N18.6 End stage renal disease; I46.9 Cardiac arrest, cause unspecified; J18.9 Pneumonia, unspecified organism; J96.21 Acute and chronic respiratory failure with hypoxia; M86.8X7 Other osteomyelitis, ankle and foot; E46 Unspecified protein-calorie malnutrition; G93.1 Anoxic brain damage, not elsewhere classified; R45.851 Suicidal ideations; I13.2 Hypertensive heart and chronic kidney disease with heart failure and with stage 5 chronic kidney disease, or end stage renal disease; E11.52 Type 2 diabetes mellitus with diabetic peripheral angiopathy with gangrene; I96 Gangrene, not elsewhere classified; M31.9 Necrotizing vasculopathy, unspecified; K92.2 Gastrointestinal hemorrhage, unspecified; S36.32XA Contusion of stomach, initial encounter; E11.621 Type 2 diabetes mellitus with foot ulcer; E11.42 Type 2 diabetes mellitus with diabetic polyneuropathy; I25.10 Atherosclerotic heart disease of native coronary artery without angina pectoris; I50.9 Heart failure, unspecified; E11.69 Type 2 diabetes mellitus with other specified complication; E11.22 Type 2 diabetes mellitus with diabetic chronic kidney disease; G47.33 Obstructive sleep apnea (adult) (pediatric); I48.91 Unspecified atrial fibrillation; E11.65 Type 2 diabetes mellitus with hyperglycemia; I77.1 Stricture of artery; R41.0 Disorientation, unspecified; F43.20 Adjustment disorder, unspecified; D50.9 Iron deficiency anemia, unspecified; H92.11 Otorrhea, right ear; F41.9 Anxiety disorder, unspecified; I25.5 Ischemic cardiomyopathy; L30.9 Dermatitis, unspecified; R13.10 Dysphagia, unspecified; G40.909 Epilepsy, unspecified, not intractable, without status epilepticus; Z88.8 Allergy status to other drugs, medicaments and biological substances; Z89.512 Acquired absence of left leg below knee; Z99.2 Dependence on renal dialysis; Z82.49 Family history of ischemic heart disease and other diseases of the circulatory system; Z83.3 Family history of diabetes mellitus; I25.2 Old myocardial infarction; X58.XXXA Exposure to other specified factors, initial encounter; Y93.89 Activity, other specified; Y92.89 Other specified places as the place of occurrence of the external cause; Y99.8 Other external cause status; Z79.899 Other long term (current) drug therapy; Z68.38 Body mass index [BMI] 38.0-38.9, adult
CPT/HCPCS: 10078; 10797; 32100; 50101; 50386; 50403; 51412; 53000; 56524; 56525; 56639; 57091; 57180; 62110; 62900; 65020; 65040; 65090; 65130

== ENCOUNTER 2018-01-03 17:55 | Observation (INO) | payer OTHER ==
[~2018-01-03] VITALS: Ht 177.8 cm; Wt 99.8 kg
--- NOTE | ~2018-01-03 | HC ---
[facility] [place] [address] CONSULTATION Name: JENNY RIOS Room #: 364-P [facility] Osei Cantrell#: [id number] Admission: 01/03/18 Attend Phys: Kathryn Chery Discharge: Date of : 62 Report #: [id number] THIS REPORT FOR: //name// CC: Tristian Diallo DATE OF SERVICE: 01/04/2018 REASON FOR CONSULTATION: End-stage renal disease. HISTORY OF PRESENT ILLNESS: The patient is extremely well known to our service with longstanding end-stage renal disease, diabetes mellitus, bilateral jduoa-isy-gewc amputations for peripheral disease and wounds who was hospitalized at this hospital for those wounds from 11/27/2017 until 12/24/2017. He underwent a right mgaaq-mfe-crxc amputation followed by a cardiorespiratory arrest, then had a prolonged course in the ICU with anoxic encephalopathy, which was rather severe. Wounds gradually healed. He was treated with PEG tube and tracheostomy. He was on the ventilator. He was sent to [facility]. He was weaned off the ventilator a few days ago, had some improvement in mental status with some recognition of his surroundings and family then deteriorated again. He pulled his PEG tube out. This was replaced. He had some coffee-ground emesis and was now brought to this hospital. PAST MEDICAL HISTORY: Longstanding diabetes mellitus with triopathy, end-stage renal disease, multiple wounds, very poor compliance with dialysis regimen particularly poor compliance with his diet and weight gains between treatments. He had fem-pop bypasses before he ended up with the amputations, previous coronary bypass surgery, difficult hypertension and hypotension and ischemic cardiomyopathy with decreased ejection fraction. REVIEW OF SYSTEMS: Cannot be taken due to his very poor mental status. He has continued on 3 times weekly dialysis. MEDICATIONS: At the [facility] included albuterol inhaler, aspirin 81 mg daily, atorvastatin 20 mg daily, carvedilol 12.5 mg b.i.d., cinacalcet 30 mg daily, Plavix 75 mg daily, Aranesp 80 mcg weekly, insulin, Prevacid 30 mg daily, losartan 50 mg daily, meropenem, Mirapex 0.5 mg at bedtime, sertraline 100 mg daily, sevelamer ____ mg 3 times a day and Nephro-Harshad 1 daily. PHYSICAL EXAMINATION: GENERAL: This is a chronically ill-appearing, somewhat confused gentleman who does wake up and follow some simple requests. SKIN: Otherwise is reasonably good. There is a healing wound at the right stump and a small sacral wound. SKELETAL: Bilateral BKAs. HEENT: Extraocular movements are full. Vision appears to be intact. Hearing [address] [address] CONSULTATION Name: JENNY RIOS Room #: 364-P [facility] Osei Cantrell#: [id number] Admission: 01/03/18 Attend Phys: Kathryn Cheyr Discharge: Date of : 62 Report #: [id number] appears to be intact. Tracheostomy tube in place. NECK: Supple. CHEST: Shows very coarse breath sounds with rhonchi. HEART: Distant, but regular. ABDOMEN: Soft and nontender. He has got a PEG tube in place. EXTREMITIES: Show the amputation sites. NEUROLOGIC: Shows poor mental status with apparent confusion and agitation. LABORATORY DATA: Hemoglobin is 8.8, white count 13 and platelets 479. Sodium 138, potassium 3.9, chloride 100, bicarbonate 30, BUN 44 and creatinine 5.3. ASSESSMENT AND PLAN: 1. End-stage renal disease due for dialysis today. We would run a gentle treatment, but his daughter informs me that he may have made the decision to discontinue dialysis. His is on her way over here and we will make a decision when she gets here as to whether to continue dialysis or to discontinue dialysis at the current time. His volume status is currently reasonably good without heart failure on chest x-ray or examination and his labs are reasonably good with a potassium of 3.9, so delaying dialysis would not be of any real danger at this point. 2. Coffee-ground emesis, status post replacement of PEG tube. 3. Anoxic encephalopathy, status post cardiorespiratory arrest. 4. Diabetes mellitus with triopathy. 5. Ischemic cardiomyopathy, status post coronary artery bypass. 6. Severe peripheral arterial disease. By: 0823 2310 Abel Chamberlain MD /nt
--- NOTE | ~2018-01-03 | HC ---
[facility] [place] [address] CONSULTATION Name: JENNY RIOS Room #: 364-P [facility] Tamia#: [id number] Admission: 01/03/18 Attend Phys: Kathryn Chery Discharge: Date of : 62 Report #: [id number] THIS REPORT FOR: //name// CC: Tristian Castellanos MD PALLIATIVE CARE CONSULTATION REQUESTING PHYSICIAN: Freddy Castellanos M.D. CHIEF COMPLAINT: End-of-life care, coffee-ground emesis. HISTORY OF PRESENT ILLNESS: The patient is a 57-year-old male who presented initially on 01/03/2018 with abdominal pain and coffee-ground emesis. This was on presentation from [facility]. The patient has had recurrent admissions for multiple medical problems. Unfortunately, he has had multiple lower extremity surgeries involving BKAs, now bilaterally. He is on dialysis. He had had a recent, after receiving BKA, cardiac arrest followed by prolonged intubation and tracheostomy placement, followed by PEG tube placement. Unfortunately, since the patient had gone to [facility], he had pulled out his PEG tube and had intermittent feedings at that time. The patient has expressed a wish to be DNR. The family has agreed to this. In addition, the patient has expressed wishes to be palliative prior to today. On my arrival, the patient was unable to express this at this time, appears to be acutely delirious. He has hypoactive delirium at this time. Family though confirm his previous wishes of a DNR code status and also palliative care desire. The patient has again an extensive medical history and I certainly do believe the patient qualifies for palliative care measures at this time. PAST MEDICAL HISTORY: Significant for chronic anemia; hypertension; history of gastroesophageal reflux disease; end-stage renal disease; multiple lower extremity surgeries, including multiple amputations; type 2 diabetes with significant neuropathy; history of sleep apnea; hypercholesterolemia; coronary artery disease, status post CABG x 4 and fem-pop bypass and peripheral vascular disease, otherwise related left upper extremity fistula placement. He has had a partial colectomy, left wyyfy-dkr-gdxk amputation and right foot amputation, followed by right wqgvx-bse-sgqa amputation. SOCIAL HISTORY: Former smoker. No illicit or alcohol use. ALLERGIES: ALPRAZOLAM. MEDICATIONS: He was previously on Procrit, carvedilol, losartan, Protonix, Plavix, Sensipar, Humalog, Tresiba, Renvela, sertraline, Lipitor, Mirapex, [place] [address] CONSULTATION Name: JENNY RIOS Room #: 364-P [facility] Osei Cantrell#: [id number] Admission: 01/03/18 Attend Phys: Kathryn Chery Discharge: Date of : 62 Report #: [id number] FAMILY HISTORY: Noncontributory. REVIEW OF SYSTEMS: Unable to obtain due to medical condition. PHYSICAL EXAMINATION: VITAL SIGNS: Include temperature 36.7, pulse 90, respirations 18, blood pressure 113/69 and 98% on minimal flow via a trach shield. HEENT: Unable to assess majority of it at this time. GENERAL: He has poor alertness, poor attention level. CARDIOVASCULAR: Regular rate and rhythm. RESPIRATORY: Diminished breath sounds throughout. ABDOMEN: He has distention, although he does not grimace to palpation at this current point in time. NEUROLOGIC: Unable to obtain response to verbal or touch stimuli. ASSESSMENT AND PLAN: 1. Hypoxic respiratory failure. The patient currently has a tracheostomy. I do believe given the circumstances, a palliative care is appropriate. The patient's family is desiring this at this time. I spent approximately 25 minutes in discussion of advanced care planning. Discussed medications. I agree with Dilaudid use, given his long-term history of opiate use. I agree with making this into a changeable dosing schedule for the nursing staff, which I had discussed with them today. In addition, I think the patient would benefit from a phantom phase or minimal oxygen flow, maybe up to 2 liters. I did discuss deep suctioning as potentially more distressing to the patient. Discussed secretions, in that they are more distressing to the family than it is to the patients themselves. Again, discussed these in the context of his shortness of breath. 2. Hematemesis. Again, the patient has had coffee-ground emesis, possible gastrointestinal bleed very unlikely. We will not treat at this time and family agrees. We will make him comfortable from a standpoint of abdominal pain and may benefit additionally if we feel that this is necessary for medications to relieve constipation, although he did not appear to grimace to palpation at this time. 3. End-stage renal disease, currently off dialysis. Discussed potential duration without dialysis in effect and also with his not having fluids and then also with his hypoxia. Discussed that we would likely be seeing 48 hours or less. He does not have decreased nasolabial folds at this time, so I do not think less than 24 hours, although it is certainly possible given his substantial condition. 4. Status post bilateral below-knee amputations. Again, we considered his treatment in the context of his overall quality of life. The patient's family is amenable to this. Discussed all measures available today. I discussed with the nursing staff to contact me for any questions regarding his current care as far as palliative measures. [facility] [address] [place] [address] CONSULTATION Name: JENNY RIOS Room #: 364-P ADM Osei Cantrell#: [id number] Admission: 01/03/18 Attend Phys: Kathryn Chery Discharge: Date of : 62 Report #: [id number] Thank you very much for the consultation. By: [id number] Mahamed Boykin DO /rogelio
[~2018-01-03 17:55] MED LIST changes: +BUSPIRONE HCL10 MG PO; +CARDIZEM LA300 M1 PO; +CARVEDILOL12.5 MG PO; +COZAAR 50 MG TA50 MG PO; +LORAZEPAM 0.50.5 M1 PO; +LYRICA 75 MG CA75 MG PO; +MAXIDEX5 ML OPHTHALMIC; +MIRAPEX0.125 MG PO; +OCUFLOX5 ML OPHTHALMIC; +PROCRIT20000 UNIT SUBQ; +SENSIPAR 30 MG30 M1 PO; +TRESIBA FL200 UNIT/1 SUBQ; +ZOFRAN ODT8 MG PO
[2018-01-03 17:56] VITALS: BP 155/91
[2018-01-03 19:05] LABS: ABSOLUTE NEUTROPHILS 10.2 thou/uL (1.4-8.2); BASOPHILS 0.6 % (0.0-2.0); EOSINOPHILS 7.5 % (0.0-3.0); HEMATOCRIT 26.4 % (42.0-52.0); HEMOGLOBIN 8.8 gm/dL (14.0-18.0); LYMPHOCYTES 7.7 % (24.0-44.0); MCH 27.1 pg (26.0-34.0); MCHC 33.3 g/dL (28.0-37.0); MCV 81.3 fL (80.0-100.0); PLATELET COUNT 479 thou/uL (150-400); POLYS 78.2 % (36.0-66.0); RBC 3.24 mil/uL (4.50-6.00); RDW 19.3 % (10.5-14.5)
[2018-01-03 19:12] LABS: CALCIUM 8.7 mg/dL (8.5-10.1); CREATININE 5.3 mg/dL (0.7-1.3); POTASSIUM 3.9 mmol/L (3.5-5.1)
[2018-01-03 19:17] LABS: ALBUMIN 1.8 g/dL (3.4-5.0); DIRECT BILIRUBIN 0.2 mg/dL (<0.1-0.3); TOTAL BILIRUBIN 0.3 mg/dL (<0.1-1.0)
[2018-01-03 19:18] LABS: APTT 27.1 Seconds (24.5-32.8); INR 1.2; PROTIME 12.4 Seconds (9.3-11.4)
[2018-01-03 19:46] LABS: ANISOCYTOSIS 1+
[2018-01-03 21:44] VITALS: BP 151/86
[2018-01-03 21:56] VITALS: BP 151/86
[2018-01-03 22:20] VITALS: BP 167/90
[2018-01-04 04:47] VITALS: BP 175/95
[2018-01-04 19:23] VITALS: BP 113/69
[2018-01-05 09:25] VITALS: BP 113/69
[2018-01-05 10:51] VITALS: BP 113/69
[2018-01-05 11:41] VITALS: BP 113/69
== END 2018-01-05 15:00 ==
LOC: ER 17:55 → 3W 21:11 → EROBS 21:11 → 3W 22:06
PROVIDERS: Emergency Medicine
DX: K92.0 Hematemesis (principal); I12.0 Hypertensive chronic kidney disease with stage 5 chronic kidney disease or end stage renal disease; E11.22 Type 2 diabetes mellitus with diabetic chronic kidney disease; N18.6 End stage renal disease; E11.40 Type 2 diabetes mellitus with diabetic neuropathy, unspecified; J96.91 Respiratory failure, unspecified with hypoxia; G47.30 Sleep apnea, unspecified; E78.00 Pure hypercholesterolemia, unspecified; K21.9 Gastro-esophageal reflux disease without esophagitis; I25.10 Atherosclerotic heart disease of native coronary artery without angina pectoris; E11.51 Type 2 diabetes mellitus with diabetic peripheral angiopathy without gangrene; K46.9 Unspecified abdominal hernia without obstruction or gangrene; K92.2 Gastrointestinal hemorrhage, unspecified; I25.2 Old myocardial infarction; A41.9 Sepsis, unspecified organism; D63.8 Anemia in other chronic diseases classified elsewhere; I25.5 Ischemic cardiomyopathy; G93.1 Anoxic brain damage, not elsewhere classified; E46 Unspecified protein-calorie malnutrition; E11.43 Type 2 diabetes mellitus with diabetic autonomic (poly)neuropathy; Z93.1 Gastrostomy status; Z95.5 Presence of coronary angioplasty implant and graft; Z98.890 Other specified postprocedural states; Z87.891 Personal history of nicotine dependence; Z79.4 Long term (current) use of insulin; Z89.431 Acquired absence of right foot; Z99.2 Dependence on renal dialysis; Z79.82 Long term (current) use of aspirin; Z90.49 Acquired absence of other specified parts of digestive tract; Z86.14 Personal history of Methicillin resistant Staphylococcus aureus infection; Z95.820 Peripheral vascular angioplasty status with implants and grafts; Z79.899 Other long term (current) drug therapy; Z89.512 Acquired absence of left leg below knee; Z89.612 Acquired absence of left leg above knee; Z51.5 Encounter for palliative care; Z99.11 Dependence on respirator [ventilator] status